=== PATIENT | female | born 1945 | race Caucasian/White ===

== ENCOUNTER 2016-08-11 13:14 | Emergency (ER) | payer MEDICARE, BC ==
[2016-08-11 13:19] VITALS: BP 103/69; PULSE 70; RESP 15; TEMP 97.7; O2SAT 96
[2016-08-11 14:09] LABS: BASOPHIL % 0.2 % (0.0-2.0); EOSINOPHIL % 0.1 % (0.0-4.0); HEMATOCRIT 43.4 % (35.0-46.0); HEMO FLAGS DIFF FINAL; LYMPH % 16.9 % (9.0-44.0); LYMPHOCYTE # 1.3 TH/MM3 (1.0-4.8); MEAN CELL VOLUME 91.4 FL (80.0-100.0); MEAN CORPUSCULAR HEMOGLOBIN 29.5 PG (27.0-34.0); MEAN CORPUSCULAR HGB CONC 32.3 % (32.0-36.0); NEUT % 78.8 % (16.0-70.0); PLATELET COUNT 151 TH/MM3 (150-450); RED BLOOD COUNT 4.75 MIL/MM3 (4.00-5.30); RED CELL DISTRIBUTION WIDTH 12.7 % (11.6-17.2); WHITE BLOOD COUNT 7.6 TH/MM3 (4.0-11.0)
[2016-08-11 14:23] VITALS: BP 139/78; PULSE 72; RESP 18; O2SAT 99
[2016-08-11 14:28] LABS: ALKALINE PHOSPHATASE 94 U/L (45-117); ALT (GPT) 18 U/L (10-53); ANION GAP 9 MEQ/L (5-15); AST (GOT) 20 U/L (15-37); BICARBONATE 22.8 MEQ/L (21.0-32.0); BLOOD UREA NITROGEN 11 MG/DL (7-18); CHLORIDE 112 MEQ/L (98-107); GLOMERULAR FILTRATION RATE 71 ML/MIN (>89); POTASSIUM 4.1 MEQ/L (3.5-5.1); SODIUM (NA) 144 MEQ/L (136-145); TOTAL BILIRUBIN ADULT 0.3 MG/DL (0.2-1.0)
--- NOTE | 2016-08-11 14:56 | PD ---
HPI Chief Complaint: Syncope/Near-Syncope Time Seen by Provider: 14:52 Travel History International Travel<30 days: No Contact w/Intl Traveler<30days: No Traveled to known affect area: No History of Present Illness HPI 70-year-old female that presents to the ED for evaluation of possible syncopal episode. Patient has a chronic history of dementia and lives in an assisted facility and history is limited from the patient. Patient tells me that she doesn't know why she is here or where she sat. Patient keeps telling me that she is from [place] and she lives in [place] and apparently wants us to contact her family member. She denies any pain of any kind. Again history is limited because of the patient's mental status which appears to be chronic. From the detention report apparently patient was being helped to go to the bathroom and she had to be put in a wheelchair because she felt somewhat dizzy, after this they apparently proceeded to put the patient on the toilet to help to go to the bathroom and when they got back the found her on the floor. Patient came back to his and she is back to her baseline per nurse report but they were concerned that she might have a syncopal episode. There is no signs of trauma on the patient. She complains of nothing. Again history is very limited. PFSH Past Medical History Dementia: Yes Social History Alcohol Use: No (denies) Tobacco Use: No (denies) Substance Use: No (denies) Allergies-Medications (Allergen,Severity, Reaction): Coded Allergies: Bactrim (Verified Allergy, Severe, 08/11/16) Penicillin G Benzathine (Verified Allergy, Severe, 08/11/16) Procaine (Verified Allergy, Severe, 08/11/16) Sulfacetamide (Verified Allergy, Severe, 08/11/16) Reported Meds & Prescriptions Reported Meds & Active Scripts Active Macrobid (Nitrofurantoin Monoh/Nitrofur Macro) 100 Mg Cap 100 Mg PO BID 7 Days Review of Systems ROS Limitations: Poor Historian Except as stated in HPI: all other systems reviewed are Neg Physical Exam Exam Limitations: Poor Historian Narrative GENERAL: SKIN: Warm and dry. HEAD: Atraumatic. Normocephalic. EYES: Pupils equal and round 4 mm reactive to light and accommodation. No scleral icterus. No injection or drainage. ENT: No nasal bleeding or discharge. Mucous membranes pink and moist. Tongue is midline. No uvula deviation. NECK: Trachea midline. No JVD. CARDIOVASCULAR: Regular rate and rhythm. RESPIRATORY: No accessory muscle use. Clear to auscultation. Breath sounds equal bilaterally. GASTROINTESTINAL: Abdomen soft, non-tender, nondistended. Hepatic and splenic margins not palpable. MUSCULOSKELETAL: Extremities without clubbing, cyanosis, or edema. No obvious deformities. Full range of motion of the upper and lower extremities bilaterally. 2+ pulses bilaterally. No lumbar, thoracic, cervical spine tenderness to palpation. NEUROLOGICAL: Awake and alert. No obvious cranial nerve deficits. Motor grossly within normal limits. Five out of 5 muscle strength in the arms and legs. Normal speech. PSYCHIATRIC: Appropriate mood and affect; insight and judgment normal. Data Data Last Documented VS Vital Signs Date Time Temp Pulse Resp B/P Pulse Ox O2 Delivery O2 Flow Rate FiO2 08/11/16 16:50 58 18 102/73 57 138/67 102/73 08/11/16 15:50 96 Room Air 08/11/16 13:19 97.7 Orders Electrocardiogram (08/11/16 13:56) Complete Blood Count With Diff (08/11/16 13:56) Comprehensive Metabolic Panel (08/11/16 13:56) Iv Access Insert/Monitor (08/11/16 13:56) Ckmb (Isoenzyme) Profile (08/11/16 14:24) Troponin I (08/11/16 14:24) Prothrombin Time / Inr (Pt) (08/11/16 14:24) Act Partial Throm Time (Ptt) (08/11/16 14:24) Urinalysis - C+S If Indicated (08/11/16 14:24) Magnesium (Mg) (08/11/16 14:24) Thyroid Stimulating Hormone (08/11/16 14:24) Chest, Single Ap (08/11/16 14:24) Ct Brain W/O Iv Contrast(Rout) (08/11/16 14:24) ^ Sitter (08/11/16 14:44) Lorazepam Inj (Ativan Inj) (08/11/16 15:00) CKMB (08/11/16 13:57) CKMB% (08/11/16 13:57) Orthostatic Blood Pressure (4/6/17 15:56) Sodium Chlor 0.9% 1000 Ml Inj (Ns 1000 M (08/11/16 16:55) Urine Culture (08/11/16 17:10) Nitrofurantoin Monohyd Macrocr (Macrobid (08/11/16 17:45) Labs Laboratory Tests Test 08/11/16 08/11/16 08/11/16 13:57 15:00 17:10 White Blood Count 7.6 TH/MM3 Red Blood Count 4.75 MIL/MM3 Hemoglobin 14.0 GM/DL Hematocrit 43.4 % Mean Corpuscular Volume 91.4 FL Mean Corpuscular Hemoglobin 29.5 PG Mean Corpuscular Hemoglobin 32.3 % Concent Red Cell Distribution Width 12.7 % Platelet Count 151 TH/MM3 Mean Platelet Volume 9.5 FL Neutrophils (%) (Auto) 78.8 % Lymphocytes (%) (Auto) 16.9 % Monocytes (%) (Auto) 4.0 % Eosinophils (%) (Auto) 0.1 % Basophils (%) (Auto) 0.2 % Neutrophils # (Auto) 6.0 TH/MM3 Lymphocytes # (Auto) 1.3 TH/MM3 Monocytes # (Auto) 0.3 TH/MM3 Eosinophils # (Auto) 0.0 TH/MM3 Basophils # (Auto) 0.0 TH/MM3 CBC Comment DIFF FINAL Differential Comment Sodium Level 144 MEQ/L Potassium Level 4.1 MEQ/L Chloride Level 112 MEQ/L Carbon Dioxide Level 22.8 MEQ/L Anion Gap 9 MEQ/L Blood Urea Nitrogen 11 MG/DL Creatinine 0.80 MG/DL Estimat Glomerular Filtration 71 ML/MIN Rate Random Glucose 91 MG/DL Calcium Level 8.2 MG/DL Magnesium Level 2.2 MG/DL Total Bilirubin 0.3 MG/DL Aspartate Amino Transf 20 U/L (AST/SGOT) Alanine Aminotransferase 18 U/L (ALT/SGPT) Alkaline Phosphatase 94 U/L Total Creatine Kinase 122 U/L Creatine Kinase MB 1.0 NG/ML Troponin I LESS THAN 0.02 NG/ML Total Protein 6.2 GM/DL Albumin 3.4 GM/DL Thyroid Stimulating Hormone 3.080 uIU/ML 3rd Gen Prothrombin Time 10.9 SEC Prothromb Time International 1.0 RATIO Ratio Activated Partial 20.3 SEC Thromboplast Time Urine Color YELLOW Urine Turbidity HAZY Urine pH 6.0 Urine Specific [place] 1.014 Urine Protein NEG mg/dL Urine Glucose (UA) NEG mg/dL Urine Ketones NEG mg/dL Urine Occult Blood NEG Urine Nitrite POS Urine Bilirubin NEG Urine Urobilinogen LESS THAN 2.0 MG/DL Urine Leukocyte Esterase LARGE Urine RBC 2 /hpf Urine WBC 79 /hpf Urine Squamous Epithelial <1 /hpf Cells Urine Bacteria MANY /hpf Urine Mucus FEW /lpf Microscopic Urinalysis Comment CULTURE INDICATED MDM Medical Decision Making Medical Screen Exam Complete: Yes Emergency Medical Condition: Yes Medical Record Reviewed: Yes Interpretation(s) EKG shows sinus rhythm with no sign of acute ischemia or arrhythmia ruled out by me and attending. CBC & BMP Diagram 08/11/16 13:57 LFTs within normal limits. UA shows UTI Last Impressions Head CT 08/11/16 142 Signed Impressions: Service Date/Time: August 15:07 - CONCLUSION: 1. No acute intracranial abnormality is identified. Johnny Torres MD Chest X-Ray 08/11/[id number] Signed Impressions: Service Date/Time: August 14:30 - CONCLUSION: The lungs are clear. Palomo Mars MD Differential Diagnosis Syncope versus altered mental status versus UTI versus vasovagal syncope versus head injury Narrative Course 70-year-old female that presents to the ED for evaluation of syncope. Patient was properly examined and was found to have signs and symptoms consistent with appears to be syncope. Patient is demented so her history is limited and she does appear to be slightly altered but from nurse report this is her baseline. At this time we'll recommend labs and imaging to any sign of acute disease. Labs and imaging showed no sign of acute disease or 10 UTI. Patient did had some dropping orthostatic vitals. This was discussed in my attending Dr. Mcnair who evaluated the patient and review all lab findings and agrees the patient can be discharged back to detention. Patient will be discharged with prescription for Macrobid. Patient was given 1 dose of Macrobid here. Patient was sent back to her detention. Follow with PCP. See ED for worsening symptoms. Diagnosis Primary Impression: Syncope Qualified Code: R55 - Vasovagal syncope Additional Impression: UTI (urinary tract infection) Qualified Code: N30.00 - Acute cystitis without hematuria Patient Instructions: General Instructions Additional Instructions: Take medication as prescribed. Follow with PCP. See ED for any worsening symptoms. Med/Other Pt SpecificInfo: Prescription(s) given Scripts Nitrofurantoin Monohydrate Macrocrystals (Macrobid)100 Mg [id number] Mg PO BID 7 Days Ref 0 Prov:Niranjan Mcnair MD 08/11/16 Disposition: 03 DISCHARGE TO SNF Condition: Stable Flako Estrada Aug 11, 2016 14:56 Flako Estrada Aug 11, 2016 14:56
[2016-08-11] MEDS ORDERED: LORazepam 2 MG/ML VIAL IV PUSH ONE (15:00)
--- NOTE | 2016-08-11 15:16 | RADRPT ---
EXAM DATE/TIME: 08/11/2016 14:30 [facility] COMPARISON: No previous studies available for comparison. INDICATIONS : Syncope. MEDICAL HISTORY : Unobtainable. SURGICAL HISTORY : Unobtainable. ENCOUNTER: Initial ACUITY: 1 day PAIN SCORE: 0/10 LOCATION: Bilateral chest FINDINGS: A single view of the chest demonstrates the lungs to be symmetrically aerated without evidence of mas s, infiltrate or effusion. No evidence of pneumothorax. The cardiomediastinal contours are unremark able. Osseous structures are intact. CONCLUSION: The lungs are clear. Palomo Mars MD on August 11, 2016 at 15:14 Board Certified Radiologist. This report was verified electronically.
[2016-08-11 15:47] LABS: CREATINE KINASE 122 U/L (26-192)
[2016-08-11 15:50] VITALS: BP 130/60; PULSE 63; RESP 18; O2SAT 96
[2016-08-11 15:55] LABS: MAGNESIUM 2.2 MG/DL (1.5-2.5)
[2016-08-11 16:06] LABS: PROTHROMBIN TIME - PATIENT 10.9 SEC (9.8-11.6)
--- NOTE | 2016-08-11 16:06 | RADRPT ---
EXAM DATE/TIME: 08/11/2016 15:07 [facility] COMPARISON: No previous studies available for comparison. INDICATIONS : Syncope with fall RADIATION DOSE: 56.35 CTDIvol (mGy) MEDICAL HISTORY : Dementia. SURGICAL HISTORY : None. ENCOUNTER: Initial ACUITY: 1 day PAIN SCALE: 0/10 LOCATION: cranial TECHNIQUE: Multiple contiguous axial images were obtained of the head. Using automated exposure control and adj ustment of the mA and/or kV according to patient size, radiation dose was kept as low as reasonably a chievable to obtain optimal diagnostic quality images. FINDINGS: CEREBRUM: The ventricles are normal for age. No evidence of midline shift, mass lesion, hemorrhage or acute in farction. No extra-axial fluid collections are seen. POSTERIOR FOSSA: The cerebellum and brainstem are intact. The 4th ventricle is midline. The cerebellopontine angle i s unremarkable. EXTRACRANIAL: The visualized portion of the orbits is intact. SKULL: The calvaria is intact. No evidence of skull fracture. CONCLUSION: 1. No acute intracranial abnormality is identified. Johnny Torres MD on August 11, 2016 at 16:03 Board Certified Radiologist. This report was verified electronically.
[2016-08-11 16:08] LABS: APTT (PATIENT) 20.3 SEC (24.3-30.1)
[2016-08-11 16:48] VITALS: BP_SYST 102; BP_SYST 138; BP_SYST 144; BP_DIAS 67; BP_DIAS 69; BP_DIAS 73; PULSE 58
[2016-08-11 16:50] VITALS: BP_SYST 102; BP_SYST 138; BP_DIAS 67; BP_DIAS 73; RESP 18
[2016-08-11] MEDS ORDERED: SODIUM CHLOR 0.9% 1000 ML INJ 1,000 ML IV SCH (16:55)
[2016-08-11 17:27] LABS: BACTERIA, URINE MANY /hpf; BLOOD, URINE NEG (NEG); COMMENT (UR) CULTURE INDICATED; CULTURE IF INDICATED CULTURE INDICATED; GLUCOSE,URINE NEG (NEG); KETONE, URINE NEG (NEG); MUCUS URINE FEW /lpf (OCC); SQUAMOUS EPITHELIAL CELL URINE <1 /hpf (0-5); URINE COLOR YELLOW (YELLW/STRAW)
[2016-08-11 17:31] LABS: NITRITE,URINE POS (NEG)
[2016-08-11] MEDS ORDERED: MACR100C2 PO (17:42)
[2016-08-11] MEDS ORDERED: NITROFURANTOIN MONOHYD MACROCR 100 MG CAP PO ONE ×2 (17:45→18:00)
--- NOTE | 2016-08-12 22:08 | EKG ---
Date Performed: 08/11/2016 Time Performed: 14:03:40 PTAGE: 70 years EKG: Sinus rhythm WITH OCCASIONAL SUPRAVENTRICULAR PREMATURE COMPLEXES NONSPECIFIC T-WAVE ABNORMALITY Consider anterol ateral ischemia. BORDERLINE ECG NO PREVIOUS TRACING DOCTOR: Alfredito Bell Interpretating Date/Time 08/12/2016 22:07:41
== END 2016-08-11 18:47 ==
LOC: NEPC 13:14
DX: R55 Syncope and collapse (principal); N30.00 Acute cystitis without hematuria; B96.20 Unspecified Escherichia coli [E. coli] as the cause of diseases classified elsewhere; F03.90 Unspecified dementia, unspecified severity, without behavioral disturbance, psychotic disturbance, mood disturbance, and anxiety; R94.31 Abnormal electrocardiogram [ECG] [EKG]
CPT/HCPCS: 70450; 71010; 80053; 81001; 82550; 82552; 83735; 84443; 84484; 85025; 85610; 85730; 87077; 87086; 87186; 93005; 96360; 99285; J7030

== ENCOUNTER 2016-11-05 19:39 | Emergency (ER) | payer MEDICARE, BC ==
[~2016-11-05 19:39] MED LIST: MACR100C2 PO
[2016-11-05 19:44] VITALS: BP 103/47; PULSE 60; RESP 18; TEMP 97.7; O2SAT 98
[2016-11-05] MEDS ORDERED: SODIUM CHLOR 0.9% 1000 ML INJ 1,000 ML IV ONE (19:48)
[2016-11-05] MEDS ORDERED: LORA-373 PO (19:52)
[2016-11-05] MEDS ORDERED: MEMA28CA PO (19:52)
[2016-11-05] MEDS ORDERED: TIZA4CAP3 PO (19:52)
[2016-11-05] MEDS ORDERED: SERO25TA PO (19:52)
[2016-11-05] MEDS ORDERED: DONE10TA7 PO (19:52)
[2016-11-05] MEDS ORDERED: CLAR10CA3 PO (19:52)
[2016-11-05] MEDS ORDERED: FLUT1SPR5 EACH NARE (19:52)
[2016-11-05] MEDS ORDERED: AZEL137S EACH NARE (19:52)
[2016-11-05] MEDS ORDERED: NITR1SUB3 SL (19:52)
[2016-11-05] MEDS ORDERED: ATOR20TA15 PO (19:52)
[2016-11-05] MEDS ORDERED: TYLE325T PO (19:52)
--- NOTE | 2016-11-05 19:52 | PD ---
HPI Chief Complaint: Fall Time Seen by Provider: 19:48 Travel History International Travel<30 days: No Contact w/Intl Traveler<30days: No Traveled to known affect area: No History of Present Illness HPI The patient is a 70-year-old female that is a resident of [facility] who apparently had a witnessed fall, witnessed by another resident. The patient does not remember the fall and initially thought she was in [place]. The patient has a history of dementia. There is no injury. The patient reportedly had a low blood pressure and slow pulse and this is why she was brought to the emergency department by the ambulance. PFSH Past Medical History Anxiety: Yes Dementia: Yes Social History Alcohol Use: No (denies) Tobacco Use: No (denies) Substance Use: No (denies) Allergies-Medications (Allergen,Severity, Reaction): Coded Allergies: Bactrim (Verified Allergy, Severe, 11/05/16) Penicillin G Benzathine (Verified Allergy, Severe, 11/05/16) Procaine (Verified Allergy, Severe, 11/05/16) Sulfacetamide (Verified Allergy, Severe, 11/05/16) Reported Meds & Prescriptions Reported Meds & Active Scripts Active Reported Tylenol (Acetaminophen) 325 Mg Tab 650 Mg PO Q4H PRN Nitroglycerin SL (Nitroglycerin) 0.4 Mg Subl 0.4 Mg SL DIRECTED PRN ONE TABLET UNDER THE TONGUE NEEDED FOR CHEST PAIN, MAY REPEAT EVERY FIVE MINUTES FOR A TOTAL OF 3 DOSES OR CALL 911 IF NO RELIEF Seroquel (Quetiapine Fumarate) 25 Mg Tab 25 Mg PO BID Lorazepam 0.5 Mg Tab 0.5 Mg PO Q8H PRN Dymista Nasal Gary (Azelastine-Fluticasone Nasal Gary) 137-50 Mcg Gary 1 Gary EACH NARE BID To each nostril. Namenda Xr (Memantine) 28 Mg Caper 28 Mg PO DAILY Tizanidine (Tizanidine HCl) 4 Mg Cap 4 Mg PO HS PRN Atorvastatin (Atorvastatin Calcium) 20 Mg Tab 20 Mg PO HS Donepezil 10 Mg Tab 10 Mg PO HS Flonase Nasal Gary (Fluticasone Nasal Gary) 50 Mcg/Act Gary 50 Mcg EACH NARE BID Claritin (Loratadine) 10 Mg Cap 10 Mg PO DAILY Review of Systems ROS Limitations: Poor Historian Except as stated in HPI: all other systems reviewed are Neg Physical Exam Narrative GENERAL: The patient is alert but disoriented to situation and location and time. Her vital signs show blood pressure 103/47 with a pulse rate of 60 and temperature 97.7, respiratory rate 18 and oximetry 98%. She has good color but does appear moderately dehydrated. SKIN: Focused skin assessment warm/dry. HEAD: Atraumatic. Normocephalic. EYES: Pupils equal and round. No scleral icterus. No injection or drainage. ENT: No nasal bleeding or discharge. Mucous membranes pink but dry. NECK: Trachea midline. No JVD. CARDIOVASCULAR: Regular rate and rhythm. No murmur appreciated. RESPIRATORY: No accessory muscle use. Clear to auscultation. Breath sounds equal bilaterally. GASTROINTESTINAL: Abdomen soft, non-tender, nondistended. Hepatic and splenic margins not palpable. MUSCULOSKELETAL: No obvious deformities. No clubbing. No cyanosis. No edema. NEUROLOGICAL: Awake and alert. No obvious cranial nerve deficits. Motor grossly within normal limits. Normal speech. PSYCHIATRIC: Appropriate mood and affect; insight and judgment normal. Data Data Last Documented VS Vital Signs Date Time Temp Pulse Resp B/P Pulse Ox O2 Delivery O2 Flow Rate FiO2 11/05/16 20:45 63 20 114/56 99 Room Air 11/05/16 19:44 97.7 Orders Electrocardiogram (11/05/16 19:48) Complete Blood Count With Diff (11/05/16 19:48) Comprehensive Metabolic Panel (11/05/16 19:48) Troponin I (11/05/16 19:48) Urinalysis - C+S If Indicated (11/05/16 19:48) Ecg Monitoring (11/05/16 19:48) Iv Access Insert/Monitor (11/05/16 19:48) Oximetry (11/05/16 19:48) Sodium Chloride 0.9% Flush (Ns Flush) (11/05/16 20:00) Sodium Chlor 0.9% 1000 Ml Inj (Ns 1000 M (11/05/16 19:48) Orthostatic Vital Signs (11/05/16 19:48) Labs Laboratory Tests Test 11/05/16 11/05/16 20:15 20:30 White Blood Count 6.0 TH/MM3 Red Blood Count 4.22 MIL/MM3 Hemoglobin 12.2 GM/DL Hematocrit 37.5 % Mean Corpuscular Volume 88.8 FL Mean Corpuscular Hemoglobin 28.8 PG Mean Corpuscular Hemoglobin 32.4 % Concent Red Cell Distribution Width 12.0 % Platelet Count 217 TH/MM3 Mean Platelet Volume 9.3 FL Neutrophils (%) (Auto) 70.4 % Lymphocytes (%) (Auto) 22.6 % Monocytes (%) (Auto) 5.2 % Eosinophils (%) (Auto) 1.0 % Basophils (%) (Auto) 0.8 % Neutrophils # (Auto) 4.3 TH/MM3 Lymphocytes # (Auto) 1.3 TH/MM3 Monocytes # (Auto) 0.3 TH/MM3 Eosinophils # (Auto) 0.1 TH/MM3 Basophils # (Auto) 0.0 TH/MM3 CBC Comment DIFF FINAL Differential Comment Sodium Level 145 MEQ/L Potassium Level 3.8 MEQ/L Chloride Level 109 MEQ/L Carbon Dioxide Level 28.8 MEQ/L Anion Gap 7 MEQ/L Blood Urea Nitrogen 9 MG/DL Random Glucose 103 MG/DL Calcium Level 8.3 MG/DL Albumin 3.1 GM/DL Urine Color YELLOW Urine Turbidity CLEAR Urine pH 7.0 Urine Specific [place] 1.010 Urine Protein NEG mg/dL Urine Glucose (UA) NEG mg/dL Urine Ketones NEG mg/dL Urine Occult Blood NEG Urine Nitrite NEG Urine Bilirubin NEG Urine Leukocyte Esterase NEG Urine WBC 0-2 /hpf Urine Squamous Epithelial 0-5 /hpf Cells Urine Renal Epithelial Cells 0-5 /hpf Urine Hyaline Casts 0-2 /lpf Microscopic Urinalysis Comment CULT NOT INDICATED MDM Medical Decision Making Medical Screen Exam Complete: Yes Emergency Medical Condition: Yes Medical Record Reviewed: Yes Interpretation(s) After a liter of fluid was given the orthostatic vital signs are normal. The CBC is normal. The urinalysis is normal. The complete metabolic profile is essentially normal. The EKG shows a ventricular rate of [address] elevation or depression. Differential Diagnosis Postural hypotension, dehydration, anemia, electrolyte disorder, renal insufficiency, cardiac syncopeunlikely Narrative Course The patient appears to have mild dehydration which led to some postural hypotension. She was given a liter fluid and is drinking by mouth liquids now. Diagnosis Primary Impression: Dehydration, mild Additional Instructions: Try to drink more liquids. It is apparent that she came in somewhat dehydrated and this led to your low blood pressure. Med/Other Pt SpecificInfo: No Change to Meds Disposition: 03 DISCHARGE TO SNF Condition: Stable Wes Hoover MD Nov 05, 2016 19:52
[2016-11-05] MEDS ORDERED: SODIUM CHLORIDE 0.9% FLUSH 10 ML FLUSH IVF PRN (20:00)
[2016-11-05 20:31] LABS: AUTOMATED NEUTROPHIL # 4.3 TH/MM3 (1.8-7.7); BASOPHIL % 0.8 % (0.0-2.0); EOSINOPHIL # 0.1 TH/MM3 (0-0.4); HEMATOCRIT 37.5 % (35.0-46.0); HEMO FLAGS DIFF FINAL; LYMPH % 22.6 % (9.0-44.0); LYMPHOCYTE # 1.3 TH/MM3 (1.0-4.8); MEAN CELL VOLUME 88.8 FL (80.0-100.0); MEAN CORPUSCULAR HEMOGLOBIN 28.8 PG (27.0-34.0); MEAN CORPUSCULAR HGB CONC 32.4 % (32.0-36.0); MONO % 5.2 % (0.0-8.0); NEUT % 70.4 % (16.0-70.0); PLATELET COUNT 217 TH/MM3 (150-450); RED BLOOD COUNT 4.22 MIL/MM3 (4.00-5.30)
[2016-11-05 20:35] VITALS: BP_SYST 106; BP_SYST 114; BP_DIAS 50; BP_DIAS 51; BP_DIAS 56; RESP 18; RESP 20
[2016-11-05 20:37] LABS: BLOOD, URINE NEG (NEG); GLUCOSE,URINE NEG (NEG); KETONE, URINE NEG (NEG); NITRITE,URINE NEG (NEG)
[2016-11-05 20:42] LABS: HYALINE CAST, URINE 0-2 /lpf (RARE); URINE COLOR YELLOW (YELLW/STRAW)
[2016-11-05 20:43] LABS: COMMENT (UR) CULT NOT INDICATED; CULTURE IF INDICATED CULT NOT INDICATED; RENAL EPITHELIAL CELLS 0-5 /hpf; SQUAMOUS EPITHELIAL CELL URINE 0-5 /hpf (0-5); WBC, URINE 0-2 /hpf (0-5)
[2016-11-05 20:45] VITALS: BP 114/56; PULSE 63; RESP 20; O2SAT 99
[2016-11-05 21:02] LABS: CHLORIDE 109 MEQ/L (98-107); POTASSIUM 3.8 MEQ/L (3.5-5.1); SODIUM (NA) 145 MEQ/L (136-145)
[2016-11-05 21:06] LABS: ANION GAP 7 MEQ/L (5-15); BICARBONATE 28.8 MEQ/L (21.0-32.0); BLOOD UREA NITROGEN 9 MG/DL (7-18)
[2016-11-05 21:09] LABS: ALT (GPT) 19 U/L (10-53); AST (GOT) 19 U/L (15-37); GLOMERULAR FILTRATION RATE 55 ML/MIN (>89)
[2016-11-05 21:10] LABS: TOTAL BILIRUBIN ADULT 0.4 MG/DL (0.2-1.0)
[2016-11-05 21:12] LABS: ALKALINE PHOSPHATASE 94 U/L (45-117)
[2016-11-06 00:10] VITALS: BP 118/68
--- NOTE | 2016-11-06 13:31 | EKG ---
Date Performed: 11/05/2016 Time Performed: 20:01:07 PTAGE: 70 years EKG: Sinus rhythm MODERATE T-WAVE ABNORMALITY, CONSIDER ANTEROLATERAL ISCHEMIA ABNORMAL ECG PREVIOUS TRACING : 08/11/2016 14.03 Compared to prior tracing no significant change DOCTOR: Imelda Prakash Interpretating Date/Time 11/06/2016 13:24:29
== END 2016-11-06 00:38 ==
LOC: PHED 19:39
DX: E86.0 Dehydration (principal); R94.31 Abnormal electrocardiogram [ECG] [EKG]; W18.30XA Fall on same level, unspecified, initial encounter; Y93.9 Activity, unspecified; Y92.129 Unspecified place in nursing home as the place of occurrence of the external cause; Y99.9 Unspecified external cause status
CPT/HCPCS: 80053; 81001; 84484; 85025; 93005; 99284; J7030

== ENCOUNTER 2016-12-04 10:49 | Emergency (ER) | payer MEDICARE, BC ==
[~2016-12-04] VITALS: Ht 170.2 cm; Wt 81.0 kg
[~2016-12-04 10:49] MED LIST changes: +ATOR20TA15 PO; +AZEL137S EACH NARE; +CLAR10CA3 PO; +DONE10TA7 PO; +FLUT1SPR5 EACH NARE; +LORA-373 PO; -MACR100C2 PO; +MEMA28CA PO; +NITR1SUB3 SL; +SERO25TA PO; +TIZA4CAP3 PO; +TYLE325T PO
[2016-12-04 11:02] VITALS: BP 119/59; PULSE 51; RESP 17; TEMP 97.7; O2SAT 100
[2016-12-04] MEDS ORDERED: SODIUM CHLOR 0.9% 1000 ML INJ 1,000 ML IV SCH (11:41)
[2016-12-04 11:42] VITALS: RESP 17; O2SAT 99
--- NOTE | 2016-12-04 11:46 | PD ---
HPI Chief Complaint: Syncope/Near-Syncope Time Seen by Provider: 11:30 Travel History International Travel<30 days: No Contact w/Intl Traveler<30days: No Traveled to known affect area: No History of Present Illness HPI This is a 71-year-old female with history of dementia who presents from [place] for evaluation of syncope. Her [id number] provides much of the history. The patient was reportedly taking a shower this morning and upon exiting the shower she was complaining of some lightheadedness and the sensation of feeling "hot." The nursing faculty had her sit on the toilet and she had a brief syncopal episode. She was witnessed and there was no seizure activity. She did not fall off of the toilet. She is currently complaining of some generalized fatigue and a sensation of "not feeling well." According to her [id number] she has had decreased appetite and increased fatigue for the past 3 weeks. She has been complaining of dysuria for the past week and a few days ago she was diagnosed with UTI. She was started on Macrobid yesterday. The patient does endorse dysuria when asked. During examination she is exhibiting generalized mild abdominal pain. She denies any headache, focal weakness, numbness or tingling in the extremities or face, chest pain or shortness of breath, lightheadedness or dizziness, vertigo sensation, cough or congestion, fevers, chills, flank pain. Denies diarrhea. Denies nausea or vomiting. She has no other complaints. PFSH Past Medical History Anxiety: Yes Cardiovascular Problems: Yes High Cholesterol: Yes Dementia: Yes Diminished Hearing: No Neurologic: Yes Respiratory: Yes (RHINITIS/CHRONIC FATIGUE) Tetanus Vaccination: > 5 Years Influenza Vaccination: Yes ?: Not Past Surgical History Surgical History: No Previous Surgery Social History Alcohol Use: No (denies) Tobacco Use: No (denies) Substance Use: No (denies) Allergies-Medications (Allergen,Severity, Reaction): Coded Allergies: Bactrim (Verified Allergy, Severe, HIVES, 12/04/16) Penicillin G Benzathine (Verified Allergy, Severe, RASH, 12/04/16) Procaine (Verified Allergy, Severe, RASH, 12/04/16) Sulfacetamide (Verified Allergy, Severe, ITCHING, 12/04/16) Reported Meds & Prescriptions Reported Meds & Active Scripts Active Reported Tylenol (Acetaminophen) 325 Mg Tab 650 Mg PO Q4H PRN Nitroglycerin SL (Nitroglycerin) 0.4 Mg Subl 0.4 Mg SL DIRECTED PRN ONE TABLET UNDER THE TONGUE NEEDED FOR CHEST PAIN, MAY REPEAT EVERY FIVE MINUTES FOR A TOTAL OF 3 DOSES OR CALL 911 IF NO RELIEF Seroquel (Quetiapine Fumarate) 25 Mg Tab 25 Mg PO BID Lorazepam 0.5 Mg Tab 0.5 Mg PO Q8H PRN Dymista Nasal [place] (Azelastine-Fluticasone Nasal [place]) 137-50 Mcg [place] 1 [place] EACH NARE BID To each nostril. Namenda Xr (Memantine) 28 Mg Caper 28 Mg PO DAILY Tizanidine (Tizanidine HCl) 4 Mg Cap 4 Mg PO HS PRN Atorvastatin (Atorvastatin Calcium) 20 Mg Tab 20 Mg PO HS Donepezil 10 Mg Tab 10 Mg PO HS Flonase Nasal [place] (Fluticasone Nasal [place]) 50 Mcg/Act [place] 50 Mcg EACH NARE BID Claritin (Loratadine) 10 Mg Cap 10 Mg PO DAILY Review of Systems ROS Limitations: Poor Historian Except as stated in HPI: all other systems reviewed are Neg Physical Exam Exam Limitations: Poor Historian Narrative GENERAL: Pleasant well-developed well-nourished female in no acute distress resting complaint hospital bed SKIN: Warm and dry. HEAD: Atraumatic. Normocephalic. EYES: Pupils equal and round. No scleral icterus. No injection or drainage. ENT: No nasal bleeding or discharge. Mucous membranes pink and moist. NECK: Trachea midline. No JVD. CARDIOVASCULAR: Regular rate and rhythm. No murmur appreciated. RESPIRATORY: No accessory muscle use. Clear to auscultation. Breath sounds equal bilaterally. GASTROINTESTINAL: Abdomen soft, mild generalized tenderness to palpation without guarding. MUSCULOSKELETAL: No obvious deformities. No clubbing. No cyanosis. No edema. NEUROLOGICAL: Awake and alert. No obvious cranial nerve deficits. Motor grossly within normal limits. Normal speech. PSYCHIATRIC: Appropriate mood and affect; insight and judgment normal. Data Data Last Documented VS Vital Signs Date Time Temp Pulse Resp B/P Pulse Ox O2 Delivery O2 Flow Rate FiO2 12/04/16 12:52 97.7 57 16 102/61 100 Room Air Orders Electrocardiogram (12/04/16 ) Electrocardiogram (12/04/16 11:41) Complete Blood Count With Diff (12/04/16 11:41) Comprehensive Metabolic Panel (12/04/16 11:41) Magnesium (Mg) (12/04/16 11:41) Ckmb (Isoenzyme) Profile (12/04/16 11:41) Troponin I (12/04/16 11:41) Urinalysis - C+S If Indicated (12/04/16 11:41) Ct Brain W/O Iv Contrast(Rout) (12/04/16 11:41) Ecg Monitoring (12/04/16 11:41) Iv Access Insert/Monitor (12/04/16 11:41) Oximetry (12/04/16 11:41) Sodium Chloride 0.9% Flush (Ns Flush) (12/04/16 11:45) Ct Abd/Pel W Iv Contrast(Rout) (12/04/16 11:41) Thyroid Stimulating Hormone (12/04/16 11:41) Sodium Chlor 0.9% 1000 Ml Inj (Ns 1000 M (12/04/16 11:41) Urine Culture (12/04/16 11:40) Iohexol 350 Inj (Omnipaque 350 Inj) (12/04/16 14:10) Ceftriaxone Inj (Rocephin Inj) (12/04/16 14:45) Labs Laboratory Tests Test 12/04/16 11:40 White Blood Count 7.0 TH/MM3 Red Blood Count 4.89 MIL/MM3 Hemoglobin 14.9 GM/DL Hematocrit 44.1 % Mean Corpuscular Volume 90.2 FL Mean Corpuscular Hemoglobin 30.4 PG Mean Corpuscular Hemoglobin 33.7 % Concent Red Cell Distribution Width 12.9 % Platelet Count 232 TH/MM3 Mean Platelet Volume 9.5 FL Neutrophils (%) (Auto) 78.5 % Lymphocytes (%) (Auto) 17.0 % Monocytes (%) (Auto) 3.9 % Eosinophils (%) (Auto) 0.4 % Basophils (%) (Auto) 0.2 % Neutrophils # (Auto) 5.5 TH/MM3 Lymphocytes # (Auto) 1.2 TH/MM3 Monocytes # (Auto) 0.3 TH/MM3 Eosinophils # (Auto) 0.0 TH/MM3 Basophils # (Auto) 0.0 TH/MM3 CBC Comment DIFF FINAL Differential Comment Urine Color DARK-YELLOW Urine Turbidity HAZY Urine pH 6.5 Urine Specific [place] 1.019 Urine Protein 30 mg/dL Urine Glucose (UA) NEG mg/dL Urine Ketones NEG mg/dL Urine Occult Blood NEG Urine Nitrite NEG Urine Bilirubin NEG Urine Urobilinogen LESS THAN 2.0 MG/DL Urine Leukocyte Esterase MOD Urine RBC 2 /hpf Urine WBC 47 /hpf Urine WBC Clumps OCC Urine Bacteria OCC /hpf Urine Hyaline Casts 13 /lpf Urine Granular Casts 3 /lpf Urine Mucus MANY /lpf Microscopic Urinalysis Comment CATH-CULTURE IND Sodium Level 139 MEQ/L Potassium Level 4.0 MEQ/L Chloride Level 106 MEQ/L Carbon Dioxide Level 25.5 MEQ/L Anion Gap 8 MEQ/L Blood Urea Nitrogen 14 MG/DL Creatinine 0.99 MG/DL Estimat Glomerular Filtration 55 ML/MIN Rate Random Glucose 116 MG/DL Calcium Level 9.4 MG/DL Magnesium Level 2.5 MG/DL Total Bilirubin 0.5 MG/DL Aspartate Amino Transf 22 U/L (AST/SGOT) Alanine Aminotransferase 20 U/L (ALT/SGPT) Alkaline Phosphatase 108 U/L Total Creatine Kinase 62 U/L Troponin I LESS THAN 0.02 NG/ML Total Protein 6.7 GM/DL Albumin 3.5 GM/DL Thyroid Stimulating Hormone 4.670 uIU/ML 3rd Gen [facility] Medical Decision Making Medical Screen Exam Complete: Yes Emergency Medical Condition: Yes Medical Record Reviewed: Yes Interpretation(s) EKG reveals sinus bradycardia, rate 51, no evidence of heart block. There are T -wave inversions noted in the anterior and lateral leads. This is unchanged from previous EKGs. Differential Diagnosis UTI, dehydration, electrolyte abnormality, sepsis, arrhythmia, symptomatic anemia Narrative Course 71-year-old female presents [facility] She was started on neck yesterday for UTI. She has been feeling fatigued for the past 3 weeks. On initial examination she appears well. She does have generalized mild tenderness to palpation of the abdomen. Physical examination is otherwise unremarkable. Plan is for basic lab work, EKG, ECG monitoring and pulse oximetry. The patient's lab work and imaging studies been reviewed. EKG reveals borderline bradycardia with no evidence of heart block. Her CBC is normal. Her CMP is unremarkable. Cardiac enzymes are negative. Her TSH is mildly elevated at 4.670, no history of hypothyroidism but this could be contributing to her fatigue. This will be discussed with the family members for further workup on an outpatient basis. Her urinalysis reveals 47 wbc's and wbc clumps, culture has been sent and the patient will be given a dose of Rocephin here. Plan is for CT the brain and abdomen reveal no acute abnormalities. The patient has been stable during her hospital stay. The plan at this time would be to discharge the patient to continue taking Macrobid as prescribed, follow up with primary care physician in regards to the elevated TSH. Diagnosis Primary Impression: UTI (urinary tract infection) Qualified Code: N30.00 - Acute cystitis without hematuria Additional Impressions: Elevated TSH Syncope Qualified Code: R55 - Syncope, unspecified syncope type Additional Instructions: As discussed, urinalysis is consistent with urinary tract infection. Take the Macrobid as prescribed. Your TSH level was 4.67 which could be a sign of hypothyroidism. Discussed with your primary care physician. Return for any acutely new or worsening symptoms. Med/Other Pt SpecificInfo: No Change to Meds Disposition: 01 DISCHARGE HOME Condition: Stable Levi Kunz Dec 04, 2016 11:46
[2016-12-04] MEDS: SODIUM CHLORIDE 0.9% FLUSH 10 ML FLUSH IVF PRN ×2 (11:51→12:49)
[2016-12-04 12:01] LABS: AUTOMATED NEUTROPHIL # 5.5 TH/MM3 (1.8-7.7); BASOPHIL % 0.2 % (0.0-2.0); EOSINOPHIL % 0.4 % (0.0-4.0); HEMATOCRIT 44.1 % (35.0-46.0); HEMO FLAGS DIFF FINAL; LYMPHOCYTE # 1.2 TH/MM3 (1.0-4.8); MEAN CELL VOLUME 90.2 FL (80.0-100.0); MEAN CORPUSCULAR HEMOGLOBIN 30.4 PG (27.0-34.0); MEAN CORPUSCULAR HGB CONC 33.7 % (32.0-36.0); MONO % 3.9 % (0.0-8.0); NEUT % 78.5 % (16.0-70.0); PLATELET COUNT 232 TH/MM3 (150-450); RED BLOOD COUNT 4.89 MIL/MM3 (4.00-5.30); RED CELL DISTRIBUTION WIDTH 12.9 % (11.6-17.2)
[2016-12-04 12:07] LABS: BACTERIA, URINE OCC /hpf; BLOOD, URINE NEG (NEG); GLUCOSE,URINE NEG (NEG); GRANULAR CAST, URINE 3 /lpf; HYALINE CAST, URINE 13 /lpf (RARE); KETONE, URINE NEG (NEG); MUCUS URINE MANY /lpf (OCC); NITRITE,URINE NEG (NEG); PH, URINE 6.5 (5.0-8.5); URINE COLOR DARK-YELLOW (YELLW/STRAW)
[2016-12-04 12:08] LABS: COMMENT (UR) CATH-CULTURE IND; CULTURE IF INDICATED CATH CULTURE IND
[2016-12-04 12:36] LABS: ANION GAP 8 MEQ/L (5-15); AST (GOT) 22 U/L (15-37); BICARBONATE 25.5 MEQ/L (21.0-32.0); BLOOD UREA NITROGEN 14 MG/DL (7-18); CHLORIDE 106 MEQ/L (98-107); GLOMERULAR FILTRATION RATE 55 ML/MIN (>89); MAGNESIUM 2.5 MG/DL (1.5-2.5); SODIUM (NA) 139 MEQ/L (136-145)
[2016-12-04 12:37] LABS: ALT (GPT) 20 U/L (10-53)
[2016-12-04 12:47] LABS: ALKALINE PHOSPHATASE 108 U/L (45-117); TOTAL BILIRUBIN ADULT 0.5 MG/DL (0.2-1.0)
[2016-12-04 12:52] VITALS: BP 102/61; PULSE 57; RESP 16; TEMP 97.7; O2SAT 100
[2016-12-04 12:55] LABS: CREATINE KINASE 62 U/L (26-192)
[2016-12-04] MEDS ORDERED: IOHEXOL 350 MG/ML 10 ML VIAL (for RAD DIAG) IV ONE (14:10)
--- NOTE | 2016-12-04 14:11 | RADRPT ---
EXAM DATE/TIME: 12/04/2016 13:45 [facility] COMPARISON: CT BRAIN W/O CONTRAST, August 11, 2016, 15:07. INDICATIONS : Syncope, confusion. RADIATION DOSE: 43.18 CTDIvol (mGy) ; Tabletop CT Head MEDICAL HISTORY : Dementia. Cardiovascular disease SURGICAL HISTORY : None. ENCOUNTER: Initial ACUITY: 1 day PAIN SCALE: 0/10 LOCATION: cranial TECHNIQUE: Multiple contiguous axial images were obtained of the head. Using automated exposure control and adj ustment of the mA and/or kV according to patient size, radiation dose was kept as low as reasonably a chievable to obtain optimal diagnostic quality images. DICOM format image data is available electro nically for review and comparison. FINDINGS: CEREBRUM: Mild central cerebral atrophy is noted. No evidence of midline shift, mass lesion, hemorrhage or acut e infarction. No extra-axial fluid collections are seen. There is an old lacunar infarct within the left barrientos radiata. POSTERIOR FOSSA: The cerebellum and brainstem are intact. The 4th ventricle is midline. The cerebellopontine angle i s unremarkable. EXTRACRANIAL: The visualized portion of the orbits is intact. SKULL: The calvaria is intact. No evidence of skull fracture. CONCLUSION: 1. Mild central cerebral atrophy. 2. Old lacunar infarct within the left barrientos radiata. 3. No acute infarct, acute hemorrhage, mass effect or extra axial fluid collections. Yuri Samuel MD on December 04, 2016 at 14:08 Board Certified Radiologist. This report was verified electronically.
--- NOTE | 2016-12-04 14:25 | RADRPT ---
EXAM DATE/TIME: 12/04/2016 13:50 [facility] COMPARISON: No previous studies available for comparison. INDICATIONS : UTI. IV CONTRAST: 75 cc Omnipaque 350 (iohexol) IV ORAL CONTRAST: No oral contrast ingested. RADIATION DOSE: 5.40 CTDIvol (mGy) MEDICAL HISTORY : Dementia. Cardiovascular disease SURGICAL HISTORY : None. ENCOUNTER: Initial ACUITY: 1 day PAIN SCALE: 0/10 LOCATION: abdomen TECHNIQUE: Volumetric scanning of the abdomen and pelvis was performed. Using automated exposure control and ad justment of the mA and/or kV according to patient size, radiation dose was kept as low as reasonably achievable to obtain optimal diagnostic quality images. DICOM format image data is available electro nically for review and comparison. FINDINGS: LOWER LUNGS: Focal interstitial changes are noted within the right middle lobe consistent with minimal infiltrate or scarring. LIVER: Homogeneous density without lesion. There is no dilation of the biliary tree. No calcified gallston es. Status post cholecystectomy. SPLEEN: Normal size without lesion. PANCREAS: Within normal limits. KIDNEYS: Normal in size and shape. There is no solid mass, stone or hydronephrosis. There is a 1 cm upper wes e left renal cyst. ADRENAL GLANDS: There is a 1.5 x 1.1 cm left adrenal nodule consistent probable adrenal adenoma. The right adrenal gl and is unremarkable. VASCULAR: There is no aortic aneurysm. BOWEL/MESENTERY: Uncomplicated sigmoid diverticulosis is noted. No acute diverticulitis is noted. ABDOMINAL WALL: Within normal limits. RETROPERITONEUM: There is no lymphadenopathy. BLADDER: No wall thickening or mass. REPRODUCTIVE: Within normal limits. INGUINAL: There is no lymphadenopathy or hernia. MUSCULOSKELETAL: Mild degenerative changes are noted throughout the lumbar spine. CONCLUSION: 1. 1.5 x 1.1 cm left adrenal nodule consistent with probable adrenal adenoma. 2. Uncomplicated sigmoid diverticulosis. 3. 1.0 cm left upper pole renal cyst. 4. Minimal focal interstitial changes within the right middle lobe consistent with scarring and/or in filtrate. 5. Mild degenerative changes throughout the lumbar spine. Yuri Samuel MD on December 04, 2016 at 14:16 Board Certified Radiologist. This report was verified electronically.
[2016-12-04] MEDS ORDERED: cefTRIAXone INJ 1,000 MG in SODIUM CHLORIDE 0.9% INJ 100 ML IV ONE (14:45)
[2016-12-04 15:49] VITALS: BP 138/76; TEMP 97.8
--- NOTE | 2016-12-04 16:27 | EKG ---
Date Performed: 12/04/2016 Time Performed: 11:16:04 PTAGE: 71 years EKG: SINUS BRADYCARDIA NONSPECIFIC T-WAVE CHANGES ANTEROLATERALLY Since previous tracing, no sig nificant change noted ABNORMAL ECG PREVIOUS TRACING : 11/05/2016 20.01 DOCTOR: Luciano Hurtado Interpretating Date/Time 12/04/2016 16:25:58
== END 2016-12-04 15:49 | disposition home or self-care (01) ==
LOC: NEPC 10:49
DX: N30.00 Acute cystitis without hematuria (principal); R55 Syncope and collapse; F03.90 Unspecified dementia, unspecified severity, without behavioral disturbance, psychotic disturbance, mood disturbance, and anxiety
CPT/HCPCS: 70450; 74177; 80053; 81001; 82550; 83735; 84443; 84484; 85025; 87086; 93005; 96361; 96365; 99285; J0696; J7030; Q9967

== ENCOUNTER 2016-12-29 17:50 | Emergency (ER) | payer MEDICARE, BC ==
[~2016-12-29] VITALS: Ht 165.1 cm; Wt 60.0 kg
[2016-12-29 18:08] VITALS: BP 164/74; PULSE 80; RESP 18; TEMP 97.7; O2SAT 99
--- NOTE | 2016-12-29 18:20 | PD ---
HPI Chief Complaint: Fall Time Seen by Provider: 18:09 Travel History International Travel<30 days: No Contact w/Intl Traveler<30days: No Traveled to known affect area: No History of Present Illness HPI history limited due to dementia facility stated that patient fell down while going down the last step/of stairs , mechanical fall, no seizure activity no loc per staff. patient c/o "back pain all over"...however pt unable to rate, also unable to state if loc etc in her own words. PFSH Past Medical History Anxiety: Yes Cardiovascular Problems: Yes High Cholesterol: Yes Dementia: Yes Diminished Hearing: No Neurologic: Yes Respiratory: Yes (RHINITIS/CHRONIC FATIGUE) ?: Not Social History Alcohol Use: No (denies) Tobacco Use: No (denies) Substance Use: No (denies) Allergies-Medications (Allergen,Severity, Reaction): Coded Allergies: penicillin G (Unverified Allergy, Severe, RASH, 12/20/16) procaine (Unverified Allergy, Severe, RASH, 12/20/16) sulfacetamide (Unverified Allergy, Severe, ITCHING, 12/20/16) sulfamethoxazole (Unverified Allergy, Severe, HIVES, 12/20/16) trimethoprim (Unverified Allergy, Severe, HIVES, 12/20/16) Reported Meds & Prescriptions Reported Meds & Active Scripts Active Reported Tylenol (Acetaminophen) 325 Mg Tab 650 Mg PO Q4H PRN Nitroglycerin SL (Nitroglycerin) 0.4 Mg Subl 0.4 Mg SL DIRECTED PRN ONE TABLET UNDER THE TONGUE NEEDED FOR CHEST PAIN, MAY REPEAT EVERY FIVE MINUTES FOR A TOTAL OF 3 DOSES OR CALL 911 IF NO RELIEF Seroquel (Quetiapine Fumarate) 25 Mg Tab 25 Mg PO BID Lorazepam 0.5 Mg Tab 0.5 Mg PO Q8H PRN Dymista Nasal [place] (Azelastine-Fluticasone Nasal [place]) 137-50 Mcg [place] 1 [place] EACH NARE BID To each nostril. Namenda Xr (Memantine) 28 Mg Caper 28 Mg PO DAILY Tizanidine (Tizanidine HCl) 4 Mg Cap 4 Mg PO HS PRN Atorvastatin (Atorvastatin Calcium) 20 Mg Tab 20 Mg PO HS Donepezil 10 Mg Tab 10 Mg PO HS Flonase Nasal [place] (Fluticasone Nasal [place]) 50 Mcg/Act [place] 50 Mcg EACH NARE BID Claritin (Loratadine) 10 Mg Cap 10 Mg PO DAILY Review of Systems Except as stated in HPI: all other systems reviewed are Neg Musculoskeletal: Positive: Pain Physical Exam Exam Limitations: Other: (dementia hx) Narrative GENERAL: arrived by ambulance in full spine immobilization, cleared off board SKIN: Warm and dry. HEAD: Atraumatic. Normocephalic. EYES: Pupils equal and round. No scleral icterus. No injection or drainage. ENT: No nasal bleeding or discharge. Mucous membranes pink and moist. NECK: Trachea midline. No JVD. CARDIOVASCULAR: Regular rate and rhythm. RESPIRATORY: No accessory muscle use. Clear to auscultation. Breath sounds equal bilaterally. GASTROINTESTINAL: Abdomen soft, non-tender, nondistended. Hepatic and splenic margins not palpable. MUSCULOSKELETAL: Extremities without clubbing, cyanosis, or edema. No obvious deformities. no midline ttp along entire spine, no groaning/wincing or grunting from patient. NEUROLOGICAL: Awake and alert to name only (not to place, time, insight) . No obvious cranial nerve deficits. Motor grossly within normal limits. Five out of 5 muscle strength in the arms and legs. Normal speech. PSYCHIATRIC: Appropriate mood and affect; insight and judgment normal. Data Data Last Documented VS Vital Signs Date Time Temp Pulse Resp B/P (MAP) Pulse Ox O2 Delivery O2 Flow Rate FiO2 12/29/16 19:10 68 18 179/82 (114) 98 Room Air 12/29/16 18:08 97.7 Orders Orders Spine, Cervical Compl(Ser6zaq) (12/29/16 18:09) Spine, Thoracic-Ap/Lat/Sw(3vw) (12/29/16 18:09) Spine, Lumbar Comp W/Obliq (12/29/16 18:09) Pelvis, Ap Only (Routine) (12/29/16 18:09) Acetamin-Hydrocod 325-5 Mg ([place] 5-325 (12/29/16 19:30) MDM Medical Decision Making Medical Screen Exam Complete: Yes Emergency Medical Condition: Yes Medical Record Reviewed: Yes Differential Diagnosis fx v dislocation v subluxation v contusion Narrative Course per radiologist interpretation no acute fx/dislocation noted, patient able to ambulate on own, and tolerated removal of c collar without any midline ttp and from. Diagnosis Primary Impression: Contusion Qualified Codes: S30.0XXA - Contusion of lower back and pelvis, initial encounter Scripts Codeine-Acetaminophen (Codeine-Acetaminophen) 30-300 mg Tab 1 TAB PO Q4H Y for PAIN, #12 TAB 0 Refills Prov: Celio Goldberg MD 12/29/16 Disposition: 01 DISCHARGE HOME Condition: Stable Celio Goldberg MD Dec 29, 2016 18:20
[2016-12-29 19:10] VITALS: BP 179/82; PULSE 68; RESP 18; O2SAT 98
--- NOTE | 2016-12-29 19:15 | RADRPT ---
EXAM DATE/TIME: 12/29/2016 18:31 [facility] COMPARISON: No previous studies available for comparison. INDICATIONS : Pelvic pain after falling today. MEDICAL HISTORY : Dementia. Cardiovascular disease SURGICAL HISTORY : None. ENCOUNTER: Initial ACUITY: 1 day PAIN SCORE: Non-responsive. LOCATION: Pelvis. FINDINGS: Single AP view of the pelvis demonstrates no fracture or dislocation. Mineralization is within normal limits. There is no significant arthropathy. No soft tissue abnormality or radiopaque foreign body i s identified. CONCLUSION: No acute abnormalities identified. Jimmy Fitch MD on December 29, 2016 at 19:12 Board Certified Radiologist. This report was verified electronically.
--- NOTE | 2016-12-29 19:16 | RADRPT ---
EXAM DATE/TIME: 12/29/2016 18:32 [facility] COMPARISON: No previous studies available for comparison. INDICATIONS : Neck pain after falling today. MEDICAL HISTORY : Dementia. Cardiovascular disease SURGICAL HISTORY : None. ENCOUNTER: Initial ACUITY: 1 day PAIN SCORE: Non-responsive. LOCATION: Cervical. FINDINGS: 5 views of the cervical spine demonstrate undermineralization. No fracture or dislocation is apprecia michele. However, the cervical spine is only visualized to the C6 level on the lateral projection. There is decreased disc height at C5-C6. No prevertebral soft tissue swelling is present. Atlantoaxial rela tionship is within normal limits. Oblique views demonstrate left facet arthrosis at C4-C5. CONCLUSION: Degenerative changes of the cervical spine, as above. No acute cervical spine abnormality is identifi ed through the C6 level. Jimmy Fitch MD on December 29, 2016 at 19:13 Board Certified Radiologist. This report was verified electronically.
--- NOTE | 2016-12-29 19:17 | RADRPT ---
EXAM DATE/TIME: 12/29/2016 18:33 [facility] COMPARISON: No previous studies available for comparison. INDICATIONS : Lower back pain after falling today. MEDICAL HISTORY : Dementia. Cardiovascular disease SURGICAL HISTORY : None. ENCOUNTER: Initial ACUITY: 1 day PAIN SCORE: Non-responsive. LOCATION: Lumbar. FINDINGS: 5 views of the lumbar spine demonstrate 5 mrl-amn-jfegfva lumbar vertebral bodies. No fracture or com pression deformity is present. There is no anterolisthesis or retrolisthesis. Endplate osteophytes ar e present at multiple levels. Surrounding structures demonstrate no acute finding. CONCLUSION: No acute lumbar spine abnormality is identified. Jimmy Fitch MD on December 29, 2016 at 19:15 Board Certified Radiologist. This report was verified electronically.
--- NOTE | 2016-12-29 19:17 | RADRPT ---
EXAM DATE/TIME: 12/29/2016 18:32 [facility] COMPARISON: No previous studies available for comparison. INDICATIONS : Back pain after falling today. MEDICAL HISTORY : Dementia. Cardiovascular disease SURGICAL HISTORY : None. ENCOUNTER: Initial ACUITY: 1 day PAIN SCORE: Non-responsive. LOCATION: Thoracic. FINDINGS: 3 views of the thoracic spine demonstrate no fracture or compression deformity. There is no anterolis thesis or retrolisthesis. There is mild decreased disc height with endplate osteophytes at T11-T12. S urrounding structures demonstrate no acute finding. CONCLUSION: No acute abnormality is identified. Jimmy Fitch MD on December 29, 2016 at 19:14 Board Certified Radiologist. This report was verified electronically.
[2016-12-29] MEDS ORDERED: ACETAMINOPHEN/HYDROcodone 325 MG/5 MG TAB PO ONE (19:30)
[2016-12-29] MEDS ORDERED: CODE30TA2 PO (19:46)
== END 2016-12-29 22:08 | disposition home or self-care (01) ==
LOC: NEPD 17:50
DX: S30.0XXA Contusion of lower back and pelvis, initial encounter (principal); W10.9XXA Fall (on) (from) unspecified stairs and steps, initial encounter; F03.90 Unspecified dementia, unspecified severity, without behavioral disturbance, psychotic disturbance, mood disturbance, and anxiety; E78.00 Pure hypercholesterolemia, unspecified
CPT/HCPCS: 72050; 72072; 72110; 72170; 99284

== ENCOUNTER 2017-01-01 07:35 | Inpatient (IN) | payer MEDICARE, BC ==
[~2017-01-01] VITALS: Ht 162.6 cm; Wt 62.4 kg
[~2017-01-01 07:35] MED LIST changes: +CODE30TA2 PO
[2017-01-01 07:40] VITALS: BP 159/78; PULSE 70; RESP 17; TEMP 98.3; O2SAT 95
--- NOTE | 2017-01-01 07:58 | PD ---
HPI Chief Complaint: Fall Time Seen by Provider: 07:39 Travel History International Travel<30 days: No Contact w/Intl Traveler<30days: No Traveled to known affect area: No History of Present Illness HPI The patient is a 71-year-old female who presents to the emergency department from a skilled nursing after mechanical fall. The patient does have a history of dementia and is a poor historian. The patient does complain of right hip pain, denies any current headache, neck pain, chest pain, shortness breath, nausea, vomiting, or abdominal pain. The patient is is extremely limited historian who is not oriented to month or year. She is able to respond to her name, however, is unable to tell me who she currently lives with. PFSH Past Medical History Anxiety: Yes Cardiovascular Problems: Yes High Cholesterol: Yes Dementia: Yes Diminished Hearing: No Neurologic: Yes Respiratory: Yes (RHINITIS/CHRONIC FATIGUE) ?: Not Social History Alcohol Use: No (denies) Tobacco Use: No (denies) Substance Use: No (denies) Allergies-Medications (Allergen,Severity, Reaction): Coded Allergies: penicillin G (Verified Allergy, Severe, RASH, 01/01/17) procaine (Verified Allergy, Severe, RASH, 01/01/17) sulfacetamide (Verified Allergy, Severe, ITCHING, 01/01/17) sulfamethoxazole (Verified Allergy, Severe, HIVES, 01/01/17) trimethoprim (Verified Allergy, Severe, HIVES, 01/01/17) Reported Meds & Prescriptions Reported Meds & Active Scripts Active Reported Tylenol (Acetaminophen) 325 Mg Tab 650 Mg PO Q4H PRN Seroquel (Quetiapine Fumarate) 25 Mg Tab 25 Mg PO BID Lorazepam 0.5 Mg Tab 0.5 Mg PO Q8H PRN Dymista Nasal [place] (Azelastine-Fluticasone Nasal [place]) 137-50 Mcg [place] 1 [place] EACH NARE BID To each nostril. Namenda Xr (Memantine) 28 Mg Caper 28 Mg PO DAILY Tizanidine (Tizanidine HCl) 4 Mg Cap 4 Mg PO HS PRN Atorvastatin (Atorvastatin Calcium) 20 Mg Tab 20 Mg PO HS Donepezil 10 Mg Tab 10 Mg PO HS Flonase Nasal [place] (Fluticasone Nasal [place]) 50 Mcg/Act [place] 50 Mcg EACH NARE BID Claritin (Loratadine) 10 Mg Cap 10 Mg PO DAILY Review of Systems ROS Limitations: Poor Historian Except as stated in HPI: all other systems reviewed are Neg HENT: No: Headaches, Neck Pain Cardiovascular: No: Chest Pain or Discomfort Respiratory: No: Shortness of Breath Gastrointestinal: No: Nausea, Vomiting, Abdominal Pain Musculoskeletal: Positive: Limited ROM, Pain Neurologic: Positive: Change in Mentation (history of dementia) Physical Exam Narrative GENERAL: Awake, alert, pleasant 71-year-old female who appears her stated age and is in no acute respiratory distress. SKIN: Focused skin assessment warm/dry. HEAD: Atraumatic. Normocephalic. EYES: Pupils equal and round. No injection or drainage. ENT: No nasal bleeding or discharge. Slightly dry mucous members. NECK: Trachea midline. No JVD. CARDIOVASCULAR: Regular rate and rhythm. No murmur appreciated. RESPIRATORY: No accessory muscle use. Clear to auscultation. Breath sounds equal bilaterally. GASTROINTESTINAL: Abdomen soft, non-tender, nondistended. No rebound tenderness. MUSCULOSKELETAL: Tenderness of the lateral aspect of the right hip. Positive distal pulses. NEUROLOGICAL: Awake and alert. No obvious cranial nerve deficits. Motor grossly within normal limits. Normal speech. Patient is oriented to person, however, is unable to tell me the month, year, or her current living conditions. PSYCHIATRIC: Appears demented. Data Data Last Documented VS Vital Signs Date Time Temp Pulse Resp B/P (MAP) Pulse Ox O2 Delivery O2 Flow Rate FiO2 01/01/17 08:18 17 95 Room Air 01/01/17 07:40 98.3 70 159/78 (105) Orders Orders Electrocardiogram (01/01/17 07:50) Complete Blood Count With Diff (01/01/17 07:50) Comprehensive Metabolic Panel (01/01/17 07:50) Prothrombin Time / Inr (Pt) (01/01/17 07:50) Act Partial Throm Time (Ptt) (01/01/17 07:50) Urinalysis - C+S If Indicated (01/01/17 07:50) Type And Screen (01/01/17 07:50) Chest, Single Ap (01/01/17 07:50) Iv Access Insert/Monitor (01/01/17 07:50) Oximetry (01/01/17 07:50) Ecg Monitoring (01/01/17 07:50) Morphine Inj (Morphine Inj) (01/01/17 08:00) Ondansetron Inj (Zofran Inj) (01/01/17 08:00) Sodium Chloride 0.9% Flush (Ns Flush) (01/01/17 08:00) Hip, Uni(Ap&Lat) W Ap Pelvis (01/01/17 ) Urinary Catheter Insert/Apply (01/01/17 09:19) Atorvastatin (Lipitor) (01/01/17 21:00) Donepezil (Aricept) (01/01/17 21:00) Quetiapine (Seroquel) (01/01/17 21:00) Tizanidine Hcl (Zanaflex) (01/01/17 09:45) (Nf) Memantine Er (Namenda Xr) (01/02/17 09:00) Admit To Inpatient (01/01/17 ) Vital Signs (Adult) Q4H (01/01/17 09:39) Activity Bed Rest (01/01/17 09:39) Projects Manager / Telemetry .CONTINUOUS (01/01/17 09:39) Intake + Output EH.QSHIFT (01/01/17 09:39) Notify Dr: Other (01/01/17 09:39) Diet Npo (01/01/17 Breakfast) Sodium Chlor 0.9% 1000 Ml Inj (Ns 1000 M (01/01/17 09:39) Sodium Chloride 0.9% Flush (Ns Flush) (01/01/17 09:45) Sodium Chloride 0.9% Flush (Ns Flush) (01/01/17 21:00) Acetaminophen (Tylenol) (01/01/17 09:45) Ondansetron Inj (Zofran Inj) (01/01/17 09:45) Basic Metabolic Panel (Bmp) (01/02/17 06:00) Complete Blood Count With Diff (01/02/17 06:00) Creatine Kinase (Cpk) (01/01/17 09:39) Creatine Kinase (Cpk) (01/01/17 15:39) Troponin I (01/01/17 09:39) Troponin I (01/01/17 15:39) Prothrombin Time / Inr (Pt) (01/02/17 06:00) Pt Request For Service (01/01/17 09:39) Ot Request For Service (01/01/17 09:39) Case Management Consult (01/01/17 09:39) Scd Bilateral/Knee High EH.BID (01/01/17 09:39) Naloxone Inj (Narcan Inj) (01/01/17 09:45) Docusate Sodium-Senna (Nieves-Colace) (01/01/17 21:00) Magnesium Hydroxide Liq (Milk Of Magnesi (01/01/17 09:45) Sennosides (Senokot) (01/01/17 09:45) Bisacodyl Supp (Dulcolax Supp) (01/01/17 09:45) Lactulose Liq (Lactulose Liq) (01/01/17 09:45) Inpatient Certification (01/01/17 ) Admit Order (Ed Use Only) (01/01/17 09:45) Labs Laboratory Tests Test 01/01/17 07:55 White Blood Count 10.8 TH/MM3 Red Blood Count 4.63 MIL/MM3 Hemoglobin 13.9 GM/DL Hematocrit 42.3 % Mean Corpuscular Volume 91.3 FL Mean Corpuscular Hemoglobin 29.9 PG Mean Corpuscular Hemoglobin Concent 32.8 % Red Cell Distribution Width 13.2 % Platelet Count 213 TH/MM3 Mean Platelet Volume 9.0 FL Neutrophils (%) (Auto) 85.7 % Lymphocytes (%) (Auto) 8.6 % Monocytes (%) (Auto) 4.7 % Eosinophils (%) (Auto) 0.9 % Basophils (%) (Auto) 0.1 % Neutrophils # (Auto) 9.2 TH/MM3 Lymphocytes # (Auto) 0.9 TH/MM3 Monocytes # (Auto) 0.5 TH/MM3 Eosinophils # (Auto) 0.1 TH/MM3 Basophils # (Auto) 0.0 TH/MM3 CBC Comment DIFF FINAL Differential Comment Prothrombin Time 10.3 SEC Prothromb Time International Ratio 0.9 RATIO Activated Partial Thromboplast Time 21.8 SEC Blood Urea Nitrogen 11 MG/DL Creatinine 0.79 MG/DL Random Glucose 109 MG/DL Total Protein 6.9 GM/DL Albumin 3.3 GM/DL Calcium Level 8.9 MG/DL Alkaline Phosphatase 180 U/L Aspartate Amino Transf (AST/SGOT) 112 U/L Alanine Aminotransferase (ALT/SGPT) 152 U/L Total Bilirubin 1.1 MG/DL Sodium Level 138 MEQ/L Potassium Level 4.2 MEQ/L Chloride Level 103 MEQ/L Carbon Dioxide Level 25.9 MEQ/L Anion Gap 9 MEQ/L Estimat Glomerular Filtration Rate 72 ML/MIN [facility] Medical Decision Making Medical Screen Exam Complete: Yes Emergency Medical Condition: Yes Medical Record Reviewed: Yes Interpretation(s) Chest x-ray reveals no acute disease X-ray the right hip reveals a right femoral neck fracture Laboratory Tests Test 01/01/17 07:55 White Blood Count 10.8 TH/MM3 Red Blood Count 4.63 MIL/MM3 Hemoglobin 13.9 GM/DL Hematocrit 42.3 % Mean Corpuscular Volume 91.3 FL Mean Corpuscular Hemoglobin 29.9 PG Mean Corpuscular Hemoglobin Concent 32.8 % Red Cell Distribution Width 13.2 % Platelet Count 213 TH/MM3 Mean Platelet Volume 9.0 FL Neutrophils (%) (Auto) 85.7 % Lymphocytes (%) (Auto) 8.6 % Monocytes (%) (Auto) 4.7 % Eosinophils (%) (Auto) 0.9 % Basophils (%) (Auto) 0.1 % Neutrophils # (Auto) 9.2 TH/MM3 Lymphocytes # (Auto) 0.9 TH/MM3 Monocytes # (Auto) 0.5 TH/MM3 Eosinophils # (Auto) 0.1 TH/MM3 Basophils # (Auto) 0.0 TH/MM3 CBC Comment DIFF FINAL Differential Comment Prothrombin Time 10.3 SEC Prothromb Time International Ratio 0.9 RATIO Activated Partial Thromboplast Time 21.8 SEC Blood Urea Nitrogen 11 MG/DL Creatinine 0.79 MG/DL Random Glucose 109 MG/DL Total Protein 6.9 GM/DL Albumin 3.3 GM/DL Calcium Level 8.9 MG/DL Alkaline Phosphatase 180 U/L Aspartate Amino Transf (AST/SGOT) 112 U/L Alanine Aminotransferase (ALT/SGPT) 152 U/L Total Bilirubin 1.1 MG/DL Sodium Level 138 MEQ/L Potassium Level 4.2 MEQ/L Chloride Level 103 MEQ/L Carbon Dioxide Level 25.9 MEQ/L Anion Gap 9 MEQ/L Estimat Glomerular Filtration Rate 72 ML/MIN EKG reveals sinus bradycardia with a heart rate of 59. QTC 447 ms. Inverted T waves noted in lead V3, V4, V5, and V6. Differential Diagnosis Differential diagnosis includes hip fracture, hip dislocation, pelvic fracture, contusion, sprain, strain, mechanical fall, dehydration. Narrative Course IV was established, labs are drawn and sent, and the patient was placed on cardiac telemetry monitoring and continuous pulse oximetry monitoring. EKG was ordered and interpreted. Chest x-ray and pelvis x-ray with right hip x-ray were obtained. The patient was administered morphine and Zofran for her symptoms. X-ray of the pelvis and right hip reveals a right femoral neck fracture. The patient's physician of record at the skilled nursing is Dr. Jeffers, therefore, the on-call medical service was paged for admission. The on-call orthopedic surgeon, Dr. Humphries, was paged. The patient will be kept nothing by mouth. Raza catheter was ordered. The patient's LFTs are mildly elevated, otherwise labs are unremarkable. The patient will be admitted to the medical service. The patient was seen by the orthopedic physician assistant art director at bedside. Physician Communication Physician Communication The on-call medical service was paged for admission. The on-call orthopedic physician was paged. I discussed the patient with Dr. Mohr who agrees with admission. Diagnosis Primary Impression: Hip fracture Qualified Codes: S72.001A - Fracture of unspecified part of neck of right femur, initial encounter for closed fracture Additional Impression: Elevated transaminase level Admitting Information Admitting Physician Requests: Admit Condition: Stable Barrie Felipe MD Jan 01, 2017 07:58
[2017-01-01] MEDS ORDERED: SODIUM CHLORIDE 0.9% FLUSH 10 ML FLUSH IVF PRN (08:00)
[2017-01-01] MEDS ORDERED: ONDANSETRON HCL 4 MG/2 ML VIAL IVP ONE (08:00)
[2017-01-01] MEDS ORDERED: MORPHINE SULFATE 4 MG/ML INJ IV PUSH ONE (08:00)
[2017-01-01 08:18] LABS: AUTOMATED NEUTROPHIL # 9.2 TH/MM3 (1.8-7.7); BASOPHIL % 0.1 % (0.0-2.0); EOSINOPHIL # 0.1 TH/MM3 (0-0.4); EOSINOPHIL % 0.9 % (0.0-4.0); HEMATOCRIT 42.3 % (35.0-46.0); HEMO FLAGS DIFF FINAL; LYMPH % 8.6 % (9.0-44.0); LYMPHOCYTE # 0.9 TH/MM3 (1.0-4.8); MEAN CELL VOLUME 91.3 FL (80.0-100.0); MEAN CORPUSCULAR HEMOGLOBIN 29.9 PG (27.0-34.0); MEAN CORPUSCULAR HGB CONC 32.8 % (32.0-36.0); MONO % 4.7 % (0.0-8.0); NEUT % 85.7 % (16.0-70.0); PLATELET COUNT 213 TH/MM3 (150-450); RED BLOOD COUNT 4.63 MIL/MM3 (4.00-5.30); RED CELL DISTRIBUTION WIDTH 13.2 % (11.6-17.2); WHITE BLOOD COUNT 10.8 TH/MM3 (4.0-11.0)
[2017-01-01 08:27] LABS: APTT (PATIENT) 21.8 SEC (24.3-30.1); INTERNATIONAL NORMALIZED RATIO 0.9 RATIO; PROTHROMBIN TIME - PATIENT 10.3 SEC (9.8-11.6)
[2017-01-01 08:38] LABS: ALKALINE PHOSPHATASE 180 U/L (45-117); TOTAL BILIRUBIN ADULT 1.1 MG/DL (0.2-1.0)
[2017-01-01 08:44] LABS: ALT (GPT) 152 U/L (10-53); ANION GAP 9 MEQ/L (5-15); BICARBONATE 25.9 MEQ/L (21.0-32.0); BLOOD UREA NITROGEN 11 MG/DL (7-18); CHLORIDE 103 MEQ/L (98-107); GLOMERULAR FILTRATION RATE 72 ML/MIN (>89); SODIUM (NA) 138 MEQ/L (136-145)
[2017-01-01 08:48] LABS: AST (GOT) 112 U/L (15-37); POTASSIUM 4.2 MEQ/L (3.5-5.1)
--- NOTE | 2017-01-01 09:12 | RADRPT ---
EXAM DATE/TIME: 01/01/2017 08:46 [facility] COMPARISON: CHEST SINGLE AP, August 11, 2016, 14:30. INDICATIONS : Pain from fall. MEDICAL HISTORY : None. SURGICAL HISTORY : None. ENCOUNTER: Initial ACUITY: 1 day PAIN SCORE: 10/10 LOCATION: Right hip. FINDINGS: A single view of the chest demonstrates the lungs to be symmetrically aerated without evidence of mas s, infiltrate or effusion. The cardiomediastinal contours are unremarkable. Osseous structures are intact. CONCLUSION: No acute disease. Carrol Mills MD on January 01, 2017 at 9:10 Board Certified Radiologist. This report was verified electronically.
--- NOTE | 2017-01-01 09:14 | RADRPT ---
EXAM DATE/TIME: 01/01/2017 08:50 [facility] COMPARISON: PELVIS AP ONLY, December 29, 2016, 18:31. INDICATIONS : Pain from fall. MEDICAL HISTORY : None. SURGICAL HISTORY : None. ENCOUNTER: Initial ACUITY: 1 day PAIN SCORE: 0/10 LOCATION: Bilateral chest FINDINGS: Imaging of the pelvis and right hip demonstrate an mildly displaced right femoral neck fracture. This was not visible on prior plain radiograph. The remainder of the osseous structures appear intact. CONCLUSION: Right femoral neck fracture. Carrol Mills MD on January 01, 2017 at 9:11 Board Certified Radiologist. This report was verified electronically.
[2017-01-01] MEDS: SODIUM CHLOR 0.9% 1000 ML INJ 1,000 ML IV SCH ×2 (09:39→21:42)
[2017-01-01] MEDS ORDERED: ONDANSETRON HCL 4 MG/2 ML VIAL IVP PRN (09:45)
[2017-01-01] MEDS ORDERED: SODIUM CHLORIDE 0.9% FLUSH 10 ML FLUSH IV FLUSH PRN (09:45)
[2017-01-01] MEDS ORDERED: BISACODYL 10 MG SUPP RECTAL PRN (09:45)
[2017-01-01] MEDS ORDERED: NALOXONE HCL 0.4 MG/ML AMP IV PRN (09:45)
[2017-01-01] MEDS ORDERED: LACTULOSE SYRUP 20 GM/30 ML CUP PO PRN (09:45)
[2017-01-01] MEDS ORDERED: SENNOSIDES 8.6 MG TAB PO PRN (09:45)
[2017-01-01] MEDS ORDERED: ACETAMINOPHEN 325 MG TAB PO PRN (09:45)
[2017-01-01] MEDS ORDERED: MAGNESIUM HYDROXIDE SUSP 30 ML CUP PO PRN (09:45)
[2017-01-01 10:50] LABS: BLOOD, URINE NEG (NEG); COMMENT (UR) CATH-CULT NOT IND; CULTURE IF INDICATED CATH CULTURE NOT IND; GLUCOSE,URINE NEG (NEG); KETONE, URINE NEG (NEG); MUCUS URINE FEW /lpf (OCC); NITRITE,URINE NEG (NEG); URINE COLOR YELLOW (YELLW/STRAW)
--- NOTE | 2017-01-01 10:51 | HHI.HP ---
HPI Service [facility] Primary Care Physician Arian Jeffers MD Admission Diagnosis right hip fracture, dementia Diagnoses: Chief Complaint: Pt unable to provide chief complaint. Travel History International Travel<30 Days: No Contact w/Intl Traveler <30 Da: No Traveled to Known Affected Are: No History of Present Illness Written by Jose Marion PA-C, acting as scribe for Dr. Steven Mohr on 01/01/17 at 10:15. Mrs. Mercedes is 71 yo, with history of dementia and hyperlipidemia, and cardiovascular disease. She was treated at [facility] in late November, for a UTI. Pt' s dementia is significant that she is unable to provide reliable history. Per pt 's son (Luciano Mercedes, contacted at [phone]) "other than the dementia, my mother is fine as a horse." Pt is unable to explain why she is here and denies pain or discomfort. Per the ED record, pt suffered a fall this morning and was brought from her half-way to [facility] as a result of pain and inability to walk after the fall. Imaging indicates pt has a fracture of her right femoral neck. Labs indicated elevated liver enzymes (AST 112, ALT 152, Alk phos 180) and bilirubin was 1.1. A 10 point ROS could not be adequately completed due to pt's impaired memory. Per ED physician, orthopedics has been contacted and saw Mrs. Mercedes in the ED. Review of Systems ROS Limitations: Poor Historian Except as stated in HPI: all other systems reviewed are Neg Past Family Social History Past Medical History Dementia Cardiovascular disease Hyperlipidemia Past Surgical History None Reported Medications Reported Meds & Active Scripts Active Reported Tylenol (Acetaminophen) 325 Mg Tab 650 Mg PO Q4H PRN Seroquel (Quetiapine Fumarate) 25 Mg Tab 25 Mg PO BID Lorazepam 0.5 Mg Tab 0.5 Mg PO Q8H PRN Dymista Nasal [place] (Azelastine-Fluticasone Nasal [place]) 137-50 Mcg [place] 1 [place] EACH NARE BID To each nostril. Namenda Xr (Memantine) 28 Mg Caper 28 Mg PO DAILY Tizanidine (Tizanidine HCl) 4 Mg Cap 4 Mg PO HS PRN Atorvastatin (Atorvastatin Calcium) 20 Mg Tab 20 Mg PO HS Donepezil 10 Mg Tab 10 Mg PO HS Flonase Nasal [place] (Fluticasone Nasal [place]) 50 Mcg/Act [place] 50 Mcg EACH NARE BID Claritin (Loratadine) 10 Mg Cap 10 Mg PO DAILY Allergies: Coded Allergies: penicillin G (Verified Allergy, Severe, RASH, 01/01/17) procaine (Verified Allergy, Severe, RASH, 01/01/17) sulfacetamide (Verified Allergy, Severe, ITCHING, 01/01/17) sulfamethoxazole (Verified Allergy, Severe, HIVES, 01/01/17) trimethoprim (Verified Allergy, Severe, HIVES, 01/01/17) Active Ordered Medications Current Medications Medications (Trade) Dose Ordered Sig/Aguilar Route Start Time Stop Time Status Last Admin (NS Flush) 2 ml UNSCH PRN IVF 01/01/17 08:00 01/01/17 08:12 (Lipitor) 20 mg HS PO 01/01/17 21:00 (Aricept) 10 mg HS PO 01/01/17 21:00 (SEROquel) 25 mg BID PO 01/01/17 21:00 (Zanaflex) 4 mg HS PRN PO 01/01/17 09:45 (Namenda) 10 mg BID PO 01/01/17 12:00 Sodium Chloride 1,000 ml @ 83 mls/hr Q12H3M IV 01/01/17 09:39 (NS Flush) 2 ml UNSCH PRN IV FLUSH 01/01/17 09:45 (NS Flush) 2 ml BID IV FLUSH 01/01/17 21:00 (Tylenol) 650 mg Q4H PRN PO 01/01/17 09:45 (Zofran Inj) 4 mg Q6H PRN IVP 01/01/17 09:45 (Narcan Inj) 0.4 mg UNSCH PRN IV 01/01/17 09:45 (Nieves-Colace) 1 tab BID PO 01/01/17 21:00 (Milk Of Magnesia Liq) 30 ml Q12H PRN PO 01/01/17 09:45 (Senokot) 17.2 mg Q12H PRN PO 01/01/17 09:45 (Dulcolax Supp) 10 mg DAILY PRN RECTAL 01/01/17 09:45 (Lactulose Liq) 30 ml DAILY PRN PO 01/01/17 09:45 Family History Per pt's son, there is no known family history of heart disease or diabetes. Social History Pt is negative for illicit/recreational drug use. Negative nicotine use history. Negative for alcohol use. Physical Exam Vital Signs Vital Signs Date Time Temp Pulse Resp B/P (MAP) Pulse Ox O2 Delivery O2 Flow Rate FiO2 01/01/17 08:18 17 95 Room Air 01/01/17 07:40 98.3 70 17 159/78 (105) 95 Physical Exam GENERAL: This is a well-nourished, well-developed patient, in no apparent distress. SKIN: No rashes or lesions. Cool and dry. Ecchymoses noted on right lower leg, gauze bandage noted or left lower leg HEAD: Atraumatic. Normocephalic. EYES: Pupils equal round and reactive. Extraocular motions intact. No scleral icterus. No injection or drainage. ENT: Nose without bleeding or purulent drainage. Airway patent. Thrush noted on tongue. NECK: Trachea midline. No lymphadenopathy. Supple and nontender. CARDIOVASCULAR: Regular rate and rhythm without murmurs, gallops, or rubs. RESPIRATORY: Clear to auscultation. Breath sounds equal bilaterally. No wheezes , rales, or rhonchi. GASTROINTESTINAL: Abdomen soft, non-tender, nondistended. No hepato-splenomegaly , or guarding. MUSCULOSKELETAL: Extremities without clubbing, cyanosis, or edema. NEUROLOGICAL: Awake and alert. Cranial nerves II through XII intact. Motor and sensory grossly within normal limits. Five out of 5 muscle strength in all muscle groups; right lower extremity was not tested due to right femoral neck fracture.. Speech was clear and fluent. PSYCHIATRIC: Pt oriented to self. Stated she was in a town in [place]. Could not identify year. As orientation questions were asked, pt's pleasant demeanor lessened. Laboratory Laboratory Tests Test 01/01/17 07:55 White Blood Count 10.8 Red Blood Count 4.63 Hemoglobin 13.9 Hematocrit 42.3 Mean Corpuscular Volume 91.3 Mean Corpuscular Hemoglobin 29.9 Mean Corpuscular Hemoglobin Concent 32.8 Red Cell Distribution Width 13.2 Platelet Count 213 Mean Platelet Volume 9.0 Neutrophils (%) (Auto) 85.7 Lymphocytes (%) (Auto) 8.6 Monocytes (%) (Auto) 4.7 Eosinophils (%) (Auto) 0.9 Basophils (%) (Auto) 0.1 Neutrophils # (Auto) 9.2 Lymphocytes # (Auto) 0.9 Monocytes # (Auto) 0.5 Eosinophils # (Auto) 0.1 Basophils # (Auto) 0.0 CBC Comment DIFF FINAL Differential Comment Prothrombin Time 10.3 Prothromb Time International Ratio 0.9 Activated Partial Thromboplast Time 21.8 Blood Urea Nitrogen 11 Creatinine 0.79 Random Glucose 109 Total Protein 6.9 Albumin 3.3 Calcium Level 8.9 Alkaline Phosphatase 180 Aspartate Amino Transf (AST/SGOT) 112 Alanine Aminotransferase (ALT/SGPT) 152 Total Bilirubin 1.1 Sodium Level 138 Potassium Level 4.2 Chloride Level 103 Carbon Dioxide Level 25.9 Anion Gap 9 Estimat Glomerular Filtration Rate 72 Result Diagram: 01/01/17 0755 01/01/17 0755 Imaging Last Impressions Chest X-Ray 01/01/17 0750 Signed Impressions: Service Date/Time: Sunday, January 01, 2017 08:46 - CONCLUSION: No acute disease. Carrol Mills MD Hip and Pelvis X-Ray 01/01/17 0000 Signed Impressions: Service Date/Time: Sunday, January 01, 2017 08:50 - CONCLUSION: Right femoral neck fracture. Carrol Mills MD Caprini VTE Risk Assessment Caprini VTE Risk Assessment: Mod/High Risk (score >= 2) VTE Pharm Contraindication: Pt is expected to undergo right femur frafture repair, AC agents may delay procedure. AC to be initiated when cleared by surgery. Caprini Risk Assessment Model Point Value = 1 Point Value = 2 Point Value = 3 Point Value = 5 Age 41-60 Minor surgery BMI > 25 kg/m2 Swollen legs Varicose veins or History of unexplained or recurrent spontaneous Oral contraceptives or hormone replacement Sepsis (< 1 month) Serious lung disease, including pneumonia (< 1 month) Abnormal pulmonary function Acute myocardial infarction Congestive heart failure (< 1 month) History of inflammatory bowel disease Medical patient at bed rest Age 61-74 Arthroscopic surgery Major open surgery (> 45 min) Laparoscopic surgery (> 45 min) Malignancy Confined to bed (> 72 hours) Immobilizing plaster cast Central venous access Age >= 75 History of VTE Family history of VTE Factor V Leiden Prothrombin [id number] Lupus anticoagulant Anticardiolipin antibodies Elevated serum homocysteine Heparin-induced thrombocytopenia Other congenital or acquired thrombophilia Stroke (< 1 month) Elective arthroplasty Hip, pelvis, or leg fracture Acute spinal cord injury (< 1 month) Prophylaxis Regimen Total Risk Factor Score Risk Level Prophylaxis Regimen 0-1 Low Early ambulation 2 Moderate Order ONE of the following: *Sequential Compression Device (SCD) *Heparin 5000 units SQ BID 3-4 Higher Order ONE of the following medications: *Heparin 5000 units SQ TID *Enoxaparin/Lovenox 40 mg SQ daily (WT < 150 kg, CrCl > 30 mL/min) *Enoxaparin/Lovenox 30 mg SQ daily (WT < 150 kg, CrCl > 10-29 mL/min) *Enoxaparin/Lovenox 30 mg SQ BID (WT < 150 kg, CrCl > 30 mL/min) AND/OR *Sequential Compression Device (SCD) 5 or more Highest Order ONE of the following medications: *Heparin 5000 units SQ TID (Preferred with Epidurals) *Enoxaparin/Lovenox 40 mg SQ daily (WT < 150 kg, CrCl > 30 mL/min) *Enoxaparin/Lovenox 30 mg SQ daily (WT < 150 kg, CrCl > 10-29 mL/min) *Enoxaparin/Lovenox 30 mg SQ BID (WT < 150 kg, CrCl > 30 mL/min) AND *Sequential Compression Device (SCD) Assessment and Plan Problem List: (1) Hip fracture ICD Code: S72.009A - Fracture of unspecified part of neck of unspecified femur , initial encounter for closed fracture Status: Acute (2) Elevated transaminase level ICD Code: R74.0 - Nonspecific elevation of levels of transaminase and lactic acid dehydrogenase [LDH] Status: Acute (3) Dementia ICD Code: F03.90 - Unspecified dementia without behavioral disturbance Status: Chronic Assessment and Plan Mrs. Mercedes is 71 yo, with history of dementia and hyperlipidemia, and cardiovascular disease. She was treated at [facility] in late November, for a UTI. Hip fracture Right femoral neck fracture -Admit to hospitalist service -Ortho has been consulted -Pain management PRN -PT consulted Dementia -Continue home regimen of memantine er 28 mg and donepezil 10 mg -Continue home regimen of Seroquel 25 mg bid Hyperlipidemia -atorvastatin 20 mg Transaminitis -Avoid hepatotoxic agents -monitor Thrush -oral Nystatin Diet: pt NPO in advance of possible surgery. DVT prophylaxis: pharmacological agents held at this time due to impending surgery. Will initiate once cleared by surgery. SCD's ordered upon admission. Seen in emergency room with Mr. Glenn Marion The exam, history, and the medical decision-making described in the above note were completed with the assistance of the mid-level provider. I reviewed and agree with the findings presented. I attest that I had a [id number] encounter with the patient on the same day, and personally performed and documented my assessment and findings in the medical record. Discussed Condition With Pt, her son Luciano (by phone) and ED staff Physician Certification 2 Midnight Certification Type: Admission for Inpatient Services Order for Inpatient Services The services are ordered in accordance with Medicare regulations or non- Medicare payer requirements, as applicable. In the case of services not specified as inpatient-only, they are appropriately provided as inpatient services in accordance with the 2-midnight benchmark. Estimated LOS (days): 3 Three days is the estimated time the patient will need to remain in the hospital , assuming treatment plan goals are met and no additional complications. Post-Hospital Plan: SNF Problem Qualifiers (1) Hip fracture: Qualified Codes: S72.001A - Fracture of unspecified part of neck of right femur , initial encounter for closed fracture (2) Dementia: Qualified Codes: F03.90 - Unspecified dementia without behavioral disturbance Jose Marion Jr. Jan 01, 2017 10:51 Nathan Horn MD Jan 01, 2017 13:57
[2017-01-01 11:19] VITALS: BP 136/76; PULSE 100; RESP 17; O2SAT 95
[2017-01-01] MEDS: MEMANTINE HCL 10 MG TAB PO SCH ×2 (12:00→20:46)
[2017-01-01] MEDS: NYSTATIN SUSP 500,000 U/5 ML CUP SWISH-SWAL SCH ×3 (12:15→20:46)
--- NOTE | 2017-01-01 14:02 | PD.CONS ---
cc: Luciano Humphries MD right displaced femoral neck fracture. (Danyelle Lambert) [facility] Service Orthopedic Surgeons Consult Requested By ER Staff Reason for Consult right femoral neck fracture Primary Care Physician Arian Jeffers MD Admission Diagnosis right hip fracture, dementia Diagnoses: (1) Fall Diagnosis: Principal (2) Closed displaced fracture of right femoral neck Diagnosis: Principal (3) Elevated transaminase level (4) Dementia Chief Complaint: fall, right femoral neck fracture (Danyelle Lambert) History of Present Illness 71 year old female with severe dementia was found this morning on the ground in her assisted nursing facility where she resides. It appears the patient had an unwitnessed fall. Staff called EMS this morning and patient was brought to [facility]. Patient appeared to have right lower extremity pain. Upon evaluation and imaging it was revealed that the patient suffered a closed severely displaced right femoral neck fracture of the proximal femur. It appears the patient ambulated with a walker prior to this injury and does not have a history of any previous orthopedic conditions or surgeries. The patient is not anticoagulated. Subjective is unobtainable from patient secondary to dementia. Subjective is obtained from ER physician. Patient was examined in ER. (Danyelle Lambert) Review of Systems unobtainable (Danyelle Lambert) Past Family Social History Past Medical History Dementia Cardiovascular disease Hyperlipidemia Past Surgical History None (Danyelle Lambert) Allergies: Coded Allergies: penicillin G (Verified Allergy, Severe, RASH, 01/01/17) procaine (Verified Allergy, Severe, RASH, 01/01/17) sulfacetamide (Verified Allergy, Severe, ITCHING, 01/01/17) sulfamethoxazole (Verified Allergy, Severe, HIVES, 01/01/17) trimethoprim (Verified Allergy, Severe, HIVES, 01/01/17) Active Ordered Medications Current Medications Medications (Trade) Dose Ordered Sig/Aguilar Route Start Time Stop Time Status Last Admin (Lipitor) 20 mg HS PO 01/01/17 21:00 (Aricept) 10 mg HS PO 01/01/17 21:00 (SEROquel) 25 mg BID PO 01/01/17 21:00 (Zanaflex) 4 mg HS PRN PO 01/01/17 09:45 (Namenda) 10 mg BID PO 01/01/17 12:00 Sodium Chloride 1,000 ml @ 83 mls/hr Q12H3M IV 01/01/17 09:39 (NS Flush) 2 ml UNSCH PRN IV FLUSH 01/01/17 09:45 (NS Flush) 2 ml BID IV FLUSH 01/01/17 21:00 (Tylenol) 650 mg Q4H PRN PO 01/01/17 09:45 (Zofran Inj) 4 mg Q6H PRN IVP 01/01/17 09:45 (Narcan Inj) 0.4 mg UNSCH PRN IV 01/01/17 09:45 (Nieves-Colace) 1 tab BID PO 01/01/17 21:00 (Milk Of Magnesia Liq) 30 ml Q12H PRN PO 01/01/17 09:45 (Senokot) 17.2 mg Q12H PRN PO 01/01/17 09:45 (Dulcolax Supp) 10 mg DAILY PRN RECTAL 01/01/17 09:45 (Lactulose Liq) 30 ml DAILY PRN PO 01/01/17 09:45 (Mycostatin Liq) 5 ml QID SWISH-SWAL 01/01/17 13:00 Reported Meds & Active Scripts Active Reported Tylenol (Acetaminophen) 325 Mg Tab 650 Mg PO Q4H PRN Seroquel (Quetiapine Fumarate) 25 Mg Tab 25 Mg PO BID Lorazepam 0.5 Mg Tab 0.5 Mg PO Q8H PRN Dymista Nasal [place] (Azelastine-Fluticasone Nasal [place]) 137-50 Mcg [place] 1 [place] EACH NARE BID To each nostril. Namenda Xr (Memantine) 28 Mg Caper 28 Mg PO DAILY Tizanidine (Tizanidine HCl) 4 Mg Cap 4 Mg PO HS PRN Atorvastatin (Atorvastatin Calcium) 20 Mg Tab 20 Mg PO HS Donepezil 10 Mg Tab 10 Mg PO HS Flonase Nasal [place] (Fluticasone Nasal [place]) 50 Mcg/Act [place] 50 Mcg EACH NARE BID Claritin (Loratadine) 10 Mg Cap 10 Mg PO DAILY Family History Per pt's son, there is no known family history of heart disease or diabetes. Social History Pt is negative for illicit/recreational drug use. Negative nicotine use history. Negative for alcohol use. (Clapper,Danyelle Simley PA) Physical Exam Vital Signs Vital Signs Date Time Temp Pulse Resp B/P (MAP) Pulse Ox O2 Delivery O2 Flow Rate FiO2 01/01/17 11:19 100 17 136/76 (96) 95 Room Air 01/01/17 11:00 95 Room Air 01/01/17 08:18 17 95 Room Air 01/01/17 07:40 98.3 70 17 159/78 (105) 95 Physical Exam RLE: in ER, pain with any attempts at ROM, calf is soft, negative Reji's sign, sensation exam unobtainable. No other signs of musculoskeletal injury. Laboratory Laboratory Tests Test 01/01/17 07:55 01/01/17 10:30 White Blood Count 10.8 Red Blood Count 4.63 Hemoglobin 13.9 Hematocrit 42.3 Mean Corpuscular Volume 91.3 Mean Corpuscular Hemoglobin 29.9 Mean Corpuscular Hemoglobin Concent 32.8 Red Cell Distribution Width 13.2 Platelet Count 213 Mean Platelet Volume 9.0 Neutrophils (%) (Auto) 85.7 Lymphocytes (%) (Auto) 8.6 Monocytes (%) (Auto) 4.7 Eosinophils (%) (Auto) 0.9 Basophils (%) (Auto) 0.1 Neutrophils # (Auto) 9.2 Lymphocytes # (Auto) 0.9 Monocytes # (Auto) 0.5 Eosinophils # (Auto) 0.1 Basophils # (Auto) 0.0 CBC Comment DIFF FINAL Differential Comment Prothrombin Time 10.3 Prothromb Time International Ratio 0.9 Activated Partial Thromboplast Time 21.8 Blood Urea Nitrogen 11 Creatinine 0.79 Random Glucose 109 Total Protein 6.9 Albumin 3.3 Calcium Level 8.9 Alkaline Phosphatase 180 Aspartate Amino Transf (AST/SGOT) 112 Alanine Aminotransferase (ALT/SGPT) 152 Total Bilirubin 1.1 Sodium Level 138 Potassium Level 4.2 Chloride Level 103 Carbon Dioxide Level 25.9 Anion Gap 9 Estimat Glomerular Filtration Rate 72 Urine Color YELLOW Urine Turbidity CLEAR Urine pH 6.0 Urine Specific [place] 1.011 Urine Protein NEG Urine Glucose (UA) NEG Urine Ketones NEG Urine Occult Blood NEG Urine Nitrite NEG Urine Bilirubin NEG Urine Urobilinogen LESS THAN 2.0 Urine Leukocyte Esterase NEG Urine RBC 1 Urine WBC LESS THAN 1 Urine Mucus FEW Microscopic Urinalysis Comment CATH-CULT NOT IND (Danyelle Lambert) Result Diagram: 01/01/17 0755 01/01/17 0755 Imaging Last Impressions Chest X-Ray 01/01/17 0750 Signed Impressions: Service Date/Time: Sunday, January 01, 2017 08:46 - CONCLUSION: No acute disease. Carrol Mills MD Hip and Pelvis X-Ray 01/01/17 0000 Signed Impressions: Service Date/Time: Sunday, January 01, 2017 08:50 - CONCLUSION: Right femoral neck fracture. Carrol Mills MD Course see medical record. (Danyelle Lambert) Assessment & Plan Problem List: (1) Fall ICD Codes: W19.XXXA - Unspecified fall, initial encounter Status: Acute (2) Closed displaced fracture of right femoral neck ICD Codes: S72.001A - Fracture of unspecified part of neck of right femur, initial encounter for closed fracture Status: Acute (3) Dementia ICD Codes: F03.90 - Unspecified dementia without behavioral disturbance Status: Chronic Qualifiers: Qualified Codes: F03.90 - Unspecified dementia without behavioral disturbance Assessment and Plan The findings were discussed with the patient. Recommendations are given for surgical management, right hip hemiarthroplasty, to allow for mobilization and pain control. The nature of the planned surgical procedure, the risks, the benefits as well as postoperative expectations have been discussed with the ER staff in detail, as the patient is demented. In addition, alternatives of the treatment and risks were discussed. Consent will need to be obtained from POA, son is point of contact at nursing facility. Patient has been marked. NPO. Written by Danyelle Lambert (Ashley), acting as scribe for Dr. Humphries on at 13:52. (Danyelle Lambert) Assessment and Plan This note was transcribed by matthew Lambert PA-C. I, Dr. Luciano Humphries personally performed the history, physical exam, and medical decision making; and confirmed the accuracy of the information in the transcribed note. Authenticated by Dr. Luciano Humphries on 01/01/17 at 16:37. (Luciano Humphries MD) Danyelle Lambert Jan 01, 2017 14:02 Luciano Humphries MD Jan 01, 2017 16:39
[2017-01-01 14:07] LABS: CREATINE KINASE 105 U/L (26-192)
[2017-01-01 16:00] VITALS: BP_SYST 124; BP_SYST 136; BP_DIAS 59; BP_DIAS 71; PULSE 104; PULSE 115; RESP 17; RESP 19; TEMP 95.8; TEMP 98.8; O2SAT 94; O2SAT 96
[2017-01-01] MEDS: LORazepam 2 MG/ML VIAL IV PUSH PRN ×2 (16:00→21:54)
[2017-01-01] MEDS ORDERED: MORPHINE SULFATE 4 MG/ML INJ IV PRN (18:00)
[2017-01-01 20:40] VITALS: BP 158/73; PULSE 115; RESP 16; TEMP 97.2; O2SAT 95
[2017-01-01] MEDS: QUEtiapine FUMARATE 25 MG TAB PO SCH (20:46)
[2017-01-01] MEDS: ATORVASTATIN 20 MG TAB PO SCH (20:46)
[2017-01-01] MEDS: DOCUSATE SODIUM 50 MG/SENNA 8.6 MG TAB PO SCH (20:46)
[2017-01-01] MEDS: DONEPEZIL HCL 5 MG TAB PO SCH (20:46)
[2017-01-01] MEDS ORDERED: SODIUM CHLORIDE 0.9% FLUSH 10 ML FLUSH IV FLUSH SCH (21:00)
[2017-01-01 23:00] VITALS: BP 133/61; PULSE 81; RESP 16; TEMP 98.4; O2SAT 97
[2017-01-02 05:25] VITALS: BP 120/61; PULSE 71; RESP 16; TEMP 98.1; O2SAT 95
--- NOTE | 2017-01-02 07:04 | PD.ORT.PN ---
Subjective Subjective Remarks s/p fall at nursing facility patient demented and cannot offer any kind of history. lives at [facility] Objective Vitals Vital Signs Date Time Temp Pulse Resp B/P (MAP) Pulse Ox O2 Delivery O2 Flow Rate FiO2 01/01/17 23:00 98.4 81 16 133/61 (85) 97 01/01/17 20:40 97.2 115 16 158/73 (101) 95 01/01/17 16:00 98.8 104 19 136/71 (92) 94 01/01/17 11:25 01/01/17 11:19 100 17 136/76 (96) 95 Room Air 01/01/17 11:00 95 Room Air 01/01/17 08:18 17 95 Room Air 01/01/17 07:40 98.3 70 17 159/78 (105) 95 I/O 01/01/17 01/01/17 01/01/17 01/02/17 01/02/17 01/02/17 07:00 15:00 23:00 07:00 15:00 23:00 Intake Total 120 ml 60 ml Output Total 350 ml Balance -230 ml 60 ml Intake Oral 120 ml 60 ml Output Urine Total 350 ml # Voids 1 # Bowel Movements 0 0 Result Diagram: 01/01/17 0755 01/01/17 0755 Other Results Laboratory Tests Test 01/01/17 07:55 Prothromb Time International Ratio 0.9 RATIO Prothrombin Time 10.3 SEC (9.8-11.6) Imaging Last 24 hours Impressions Chest X-Ray 01/01/17 0750 Signed Impressions: Service Date/Time: Sunday, January 01, 2017 08:46 - CONCLUSION: No acute disease. Carrol Mills MD Objective Remarks RLE: Pain with motion of hip. nvi Assessment & Plan Problem List: (1) Fall ICD Codes: W19.XXXA - Unspecified fall, initial encounter Status: Acute (2) Closed displaced fracture of right femoral neck ICD Codes: S72.001A - Fracture of unspecified part of neck of right femur, initial encounter for closed fracture Status: Acute (3) Dementia ICD Codes: F03.90 - Unspecified dementia without behavioral disturbance Status: Chronic Qualifiers: Qualified Codes: F03.90 - Unspecified dementia without behavioral disturbance Assessment and Plan 1) Right Femoral Neck Fx -NWB -bedrest -potential surgery today -if not, then will plan for surgery tomorrow -obtain consent from family Evan Pham Jan 02, 2017 07:04
[2017-01-02] MEDS ORDERED: POVIDONE IODINE 5% (ANTISEPSIS KIT) 4 APPLICATIONS EACH NARE PRN (07:15)
[2017-01-02] MEDS ORDERED: INSULIN HUMAN REGULAR 1,000 UNITS/10 ML VIAL SQ PRN (07:15)
[2017-01-02] MEDS ORDERED: METOPROLOL TARTRATE 25 MG TAB PO PRN (07:15)
[2017-01-02] MEDS ORDERED: LACTATED RINGER'S 1000 ML IV PRN (07:15)
[2017-01-02] MEDS ORDERED: CHLORHEXIDINE GLUCONATE 2 % 1 PACK (2 CLOTHS) TOPICAL PRN (07:15)
[2017-01-02] MEDS ORDERED: SODIUM CHLORID 0.9% 500 ML IV PRN (07:15)
[2017-01-02 07:40] LABS: AUTOMATED NEUTROPHIL # 5.4 TH/MM3 (1.8-7.7); BASOPHIL % 0.1 % (0.0-2.0); EOSINOPHIL # 0.1 TH/MM3 (0-0.4); HEMATOCRIT 37.7 % (35.0-46.0); HEMO FLAGS DIFF FINAL; LYMPH % 15.2 % (9.0-44.0); LYMPHOCYTE # 1.1 TH/MM3 (1.0-4.8); MEAN CELL VOLUME 89.9 FL (80.0-100.0); MEAN CORPUSCULAR HEMOGLOBIN 30.2 PG (27.0-34.0); MEAN CORPUSCULAR HGB CONC 33.5 % (32.0-36.0); MONO % 6.3 % (0.0-8.0); NEUT % 77.4 % (16.0-70.0); PLATELET COUNT 224 TH/MM3 (150-450); RED BLOOD COUNT 4.19 MIL/MM3 (4.00-5.30); RED CELL DISTRIBUTION WIDTH 13.1 % (11.6-17.2)
[2017-01-02 07:44] LABS: PROTHROMBIN TIME - PATIENT 10.6 SEC (9.8-11.6)
[2017-01-02 08:00] VITALS: BP 105/62; PULSE 58; RESP 20; TEMP 96.4; O2SAT 95
[2017-01-02 08:07] LABS: BICARBONATE 26.5 MEQ/L (21.0-32.0); POTASSIUM 3.7 MEQ/L (3.5-5.1)
[2017-01-02] MEDS: QUEtiapine FUMARATE 25 MG TAB PO SCH ×2 (09:00→21:25)
[2017-01-02] MEDS: MEMANTINE HCL 10 MG TAB PO SCH ×2 (09:00→21:26)
[2017-01-02] MEDS: NYSTATIN SUSP 500,000 U/5 ML CUP SWISH-SWAL SCH ×4 (09:00→21:26)
[2017-01-02] MEDS: DOCUSATE SODIUM 50 MG/SENNA 8.6 MG TAB PO SCH ×2 (09:00→21:25)
--- NOTE | 2017-01-02 09:10 | HHI.PR ---
Subjective Remarks This is a pleasant 71 y/o Female with Severe Dementia and Hyperlipidemia, CAD, she was already seen [place] [facility] [place], her History was given by her Son Mr. Luciano Mercedes Phone number [phone], she is status post fall at her Shelter, found in ER with right femoral neck. also elevated Liver enzymes. Seen in her bedroom no complaint awaiting for procedure to be performed. no complaint. Objective Vital Signs Date Time Temp Pulse Resp B/P (MAP) Pulse Ox O2 Delivery O2 Flow Rate FiO2 01/02/17 07:48 Room Air 01/02/17 05:25 98.1 71 16 120/61 (80) 95 01/01/17 23:00 98.4 81 16 133/61 (85) 97 01/01/17 20:40 97.2 115 16 158/73 (101) 95 01/01/17 16:00 98.8 104 19 136/71 (92) 94 01/01/17 11:25 01/01/17 11:19 100 17 136/76 (96) 95 Room Air 01/01/17 11:00 95 Room Air I/O 01/01/17 01/01/17 01/01/17 01/02/17 01/02/17 01/02/17 07:00 15:00 23:00 07:00 15:00 23:00 Intake Total 120 ml 60 ml Output Total 350 ml Balance -230 ml 60 ml Intake Oral 120 ml 60 ml Output Urine Total 350 ml # Voids 1 # Bowel Movements 0 0 Result Diagram: 01/02/17 0604 01/02/17 0604 Imaging Last Impressions Chest X-Ray 01/01/17 0750 Signed Impressions: Service Date/Time: Sunday, January 01, 2017 08:46 - CONCLUSION: No acute disease. Carrol Mills MD Hip and Pelvis X-Ray 01/01/17 0000 Signed Impressions: Service Date/Time: Sunday, January 01, 2017 08:50 - CONCLUSION: Right femoral neck fracture. Carrol Mills MD Procedures None Other Results Laboratory Tests Test 01/01/17 07:55 01/01/17 10:30 01/02/17 06:04 Activated Partial Thromboplast Time 21.8 SEC Blood Urea Nitrogen 11 MG/DL 10 MG/DL Creatinine 0.79 MG/DL 0.70 MG/DL Random Glucose 109 MG/DL 102 MG/DL Total Protein 6.9 GM/DL Albumin 3.3 GM/DL Calcium Level 8.9 MG/DL 8.6 MG/DL Alkaline Phosphatase 180 U/L Aspartate Amino Transf (AST/SGOT) 112 U/L Alanine Aminotransferase (ALT/SGPT) 152 U/L Total Bilirubin 1.1 MG/DL Sodium Level 138 MEQ/L 141 MEQ/L Potassium Level 4.2 MEQ/L 3.7 MEQ/L Chloride Level 103 MEQ/L 106 MEQ/L Carbon Dioxide Level 25.9 MEQ/L 26.5 MEQ/L Urine Color YELLOW Urine Turbidity CLEAR Urine pH 6.0 Urine Specific [place] 1.011 Urine Protein NEG mg/dL Urine Glucose (UA) NEG mg/dL Urine Ketones NEG mg/dL Urine Occult Blood NEG Urine Nitrite NEG Urine Bilirubin NEG Urine Urobilinogen LESS THAN 2.0 MG/DL Urine Leukocyte Esterase NEG Urine RBC 1 /hpf Urine WBC LESS THAN 1 /hpf Urine Mucus FEW /lpf Microscopic Urinalysis Comment CATH-CULT NOT IND White Blood Count 7.0 TH/MM3 Red Blood Count 4.19 MIL/MM3 Hemoglobin 12.7 GM/DL Hematocrit 37.7 % Mean Corpuscular Volume 89.9 FL Mean Corpuscular Hemoglobin 30.2 PG Mean Corpuscular Hemoglobin Concent 33.5 % Red Cell Distribution Width 13.1 % Platelet Count 224 TH/MM3 Mean Platelet Volume 9.1 FL Neutrophils (%) (Auto) 77.4 % Lymphocytes (%) (Auto) 15.2 % Monocytes (%) (Auto) 6.3 % Eosinophils (%) (Auto) 1.0 % Basophils (%) (Auto) 0.1 % Neutrophils # (Auto) 5.4 TH/MM3 Lymphocytes # (Auto) 1.1 TH/MM3 Monocytes # (Auto) 0.4 TH/MM3 Eosinophils # (Auto) 0.1 TH/MM3 Basophils # (Auto) 0.0 TH/MM3 CBC Comment DIFF FINAL Differential Comment Prothrombin Time 10.6 SEC Prothromb Time International Ratio 1.0 RATIO Anion Gap 9 MEQ/L Estimat Glomerular Filtration Rate 82 ML/MIN Total Creatine Kinase 176 U/L Troponin I 0.03 NG/ML Objective Remarks GENERAL: This is a well-nourished, well-developed patient, in no apparent distress. SKIN: No rashes or lesions. Cool and dry. Ecchymoses noted on right lower leg, gauze bandage noted or left lower leg HEAD: Atraumatic. Normocephalic. EYES: Pupils equal round and reactive. Extraocular motions intact. No scleral icterus. No injection or drainage. ENT: Nose without bleeding or purulent drainage. Airway patent. Thrush noted on tongue. NECK: Trachea midline. No lymphadenopathy. Supple and nontender. CARDIOVASCULAR: Regular rate and rhythm without murmurs, gallops, or rubs. RESPIRATORY: Clear to auscultation. Breath sounds equal bilaterally. No wheezes , rales, or rhonchi. GASTROINTESTINAL: Abdomen soft, non-tender, nondistended. No hepato-splenomegaly , or guarding. MUSCULOSKELETAL: Extremities without clubbing, cyanosis, or edema. NEUROLOGICAL: Awake and alert. Cranial nerves II through XII intact. Motor and sensory grossly within normal limits. Five out of 5 muscle strength in all muscle groups; right lower extremity was not tested due to right femoral neck fracture.. Speech was clear and fluent. PSYCHIATRIC: Pt oriented to self. Stated she was in a town in [place]. Could not identify year. As orientation questions were asked, pt's pleasant demeanor lessened. Medications and IVs Current Medications Medications (Trade) Dose Ordered Sig/Aguilar Route Start Time Stop Time Status Last Admin (Lipitor) 20 mg HS PO 01/01/17 21:00 01/01/17 20:46 (Aricept) 10 mg HS PO 01/01/17 21:00 01/01/17 20:46 (SEROquel) 25 mg BID PO 01/01/17 21:00 01/01/17 20:46 (Zanaflex) 4 mg HS PRN PO 01/01/17 09:45 (Namenda) 10 mg BID PO 01/01/17 12:00 01/01/17 20:46 Sodium Chloride 1,000 ml @ 83 mls/hr Q12H3M IV 01/01/17 09:39 (NS Flush) 2 ml UNSCH PRN IV FLUSH 01/01/17 09:45 (NS Flush) 2 ml BID IV FLUSH 01/01/17 21:00 (Tylenol) 650 mg Q4H PRN PO 01/01/17 09:45 (Zofran Inj) 4 mg Q6H PRN IVP 01/01/17 09:45 (Narcan Inj) 0.4 mg UNSCH PRN IV 01/01/17 09:45 (Nieves-Colace) 1 tab BID PO 01/01/17 21:00 01/01/17 20:46 (Milk Of Magnesia Liq) 30 ml Q12H PRN PO 01/01/17 09:45 (Senokot) 17.2 mg Q12H PRN PO 01/01/17 09:45 (Dulcolax Supp) 10 mg DAILY PRN RECTAL 01/01/17 09:45 (Lactulose Liq) 30 ml DAILY PRN PO 01/01/17 09:45 (Mycostatin Liq) 5 ml QID SWISH-SWAL 01/01/17 13:00 (Ativan Inj) 0.5 mg Q6H PRN IV PUSH 01/01/17 16:00 01/01/17 21:54 (Morphine Inj) 1 mg Q4H PRN IV 01/01/17 18:00 01/02/17 05:13 Lactated Ringer's 1,000 ml @ 30 mls/hr Q24H PRN IV 01/02/17 07:15 01/05/17 07:14 Sodium Chloride 500 ml @ 30 mls/hr [id number] PRN IV 01/02/17 07:15 01/05/17 07:14 (Lopressor) 25 mg ASBESTOS MICROSCOPIST PRN PO 01/02/17 07:15 01/05/17 07:14 (Betadine 5% Antisepsis Kit) 1 applic ASBESTOS MICROSCOPIST PRN EACH NARE 01/02/17 07:15 01/05/17 07:14 (Chlorhexidine 2% Cloth) 3 pack ASBESTOS MICROSCOPIST PRN TOPICAL 01/02/17 07:15 01/05/17 07:14 (NovoLIN R INJ) See Protocol Table ... ASBESTOS MICROSCOPIST PRN SQ 01/02/17 07:15 01/05/17 07:14 A/P Assessment and Plan Mrs. Mercedes is 71 yo, with history of dementia and hyperlipidemia, and cardiovascular disease. She was [place] [facility] [place], for a UTI. Hip fracture Right femoral neck fracture -Admit to hospitalist service -Ortho has been consulted -Pain management PRN -PT consulted Dementia -Continue home regimen of memantine er 28 mg and donepezil 10 mg -Continue home regimen of Seroquel 25 mg bid Hyperlipidemia -atorvastatin 20 mg Transaminitis -Avoid hepatotoxic agents -monitor Thrush -oral Nystatin Diet: pt NPO in advance of possible surgery. DVT prophylaxis: SCDs patient awaiting for surgery, anticoagulation as per Orthopedic Surgery after procedure. Discussed Condition With Patient in the room and Nurse. Discharge Planning Once cleared by Orthopedic surgery. Nathan Horn MD Jan 02, 2017 09:10
[2017-01-02] MEDS: SODIUM CHLOR 0.9% 1000 ML INJ 1,000 ML IV SCH ×2 (09:45→21:48)
[2017-01-02 10:04] LABS: INDIRECT BILIRUBIN 0.7 MG/DL (0.0-0.8); TOTAL BILIRUBIN ADULT 0.9 MG/DL (0.2-1.0)
[2017-01-02] MEDS ORDERED: GENTAMICIN SULFATE 80 MG/2 ML VIAL ONE (11:24)
[2017-01-02] MEDS ORDERED: ceFAZolin INJ 1,000 MG VIAL ONE (11:24)
[2017-01-02] MEDS ORDERED: VANCOMYCIN HCL 1000 MG VIAL ONE (11:24)
[2017-01-02] MEDS ORDERED: SODIUM CHLOR 0.9% 250 ML INJ 250 ML ONE (11:25)
[2017-01-02] MEDS ORDERED: CLINDAMYCIN PHOS 600 MG/4 ML VIAL ONE (11:25)
[2017-01-02] MEDS ORDERED: FAMOTIDINE 20 MG/2 ML VIAL ONE (11:29)
[2017-01-02] MEDS ORDERED: ACETAMINOPHEN 1000 MG/100 ML 100 ML IV ONE (11:34)
[2017-01-02] MEDS ORDERED: ePHEDrine/NS 25 MG/5 ML SYR IV ONE (12:00)
[2017-01-02] MEDS ORDERED: NEOSTIGMINE 3 MG/3 ML SYR IV ONE (12:00)
[2017-01-02] MEDS ORDERED: PHENYLEPH/NS 1000 MCG/10 ML SYR IV ONE (12:00)
[2017-01-02] MEDS ORDERED: ONDANSETRON HCL 4 MG/2 ML VIAL IV PUSH ONE (12:00)
[2017-01-02] MEDS ORDERED: LACTATED RINGER'S 1000 ML INJ 1,000 ML IV ONE (12:00)
[2017-01-02] MEDS ORDERED: PROPOFOL 200 MG/20 ML AMP IV ONE (12:00)
--- NOTE | 2017-01-02 13:14 | PD.OP ---
cc: Yoni Carter Jr., MD Operative Report Date of Surgery: Jan 02, 2017 Preoperative Diagnosis: Right hip femoral neck fracture Postoperative Diagnosis: same Procedure: Right hip bipolar hemiarthroplasty Anesthesia: Gen. Surgeon: Yoni Carter Knobber(s): ROSARIO Tadeo The surgical procedure was assisted by my Advanced Registered Nurse Practitioner. My HOT FRAME TENDER presence was necessary throughout this case for the manipulation and positioning of the surgical extremity. My HOT FRAME TENDER was assisting me throughout the duration of this procedure. The skill set of an Advance Registered Nurse Practitioner was medically necessary to complete this procedure. During the surgical case, the surgical elastic knitter was working at the back table and the Advance Registered Nurse Practitioner was directly assisting me. Resident Surgeon: none Operation and Findings: ESTIMATED BLOOD LOSS: 100cc. DRAIN: None DETAILS OF PROCEDURE This patient was brought into the operating room and placed on the OR table. The patient was given anesthesia. The patient received IV antibiotics. The patient was then placed in lateral decubitus position. The right hip and leg were prepped with alcohol, followed by Hibiclens and draped in a usual sterile fashion. Clean air was used for this procedure. Time out procedure was performed. The procedure began with a 5 inch incision over the posterolateral hip. The subcutaneous tissue was dissected with the Bovie. The iliotibial band were split in line with fibers. The Charnley retractor was placed. The piriformis and external rotators were released from the femur and tagged with a #1 Vicryl suture. The capsule is now incised and tagged with #1 Vicryl. The femoral neck fracture was now visualized. A corkscrew was now used to remove the femoral head. The femoral head was sized and measured. Soft tissue was now protected. The hip skid was placed underneath the femoral neck. An oscillating saw was used to make a femoral neck cut. At this point attention was turned to preparation of the proximal femur. A box osteotome was used to remove the lateral cortex of the femoral neck. The T- handle reamer was used to open the femoral canal. Next, the canal was broached. A lateralizing reamer was used to help lateralize the prosthesis. At this point a trial head and neck were placed. The hip was reduced. The patient was found to have excellent stability with good range of motion. Trial components were removed. Soft tissue and bone were thoroughly irrigated. A Corail stem was now opened. The stem was now impacted into the proximal femur. Care was taken to keep appropriate anteversion. The head and neck were now impacted onto the stem. The hip was again reduced. The hip was found to have good range of motion and good stability. Leg lengths were clinically equal. The wound was thoroughly irrigated. The capsule, piriformis and iliotibial band were closed with #1 Vicryl. Subcutaneous tissue was closed with 3-0 Vicryl. The skin was closed with eulalia. A sterile dressing was applied with Primapore. The patient was placed into a knee immobilizer. The patient was awakened and transferred to the recovery room in stable condition. Needle and sponge counts were correct. IMPLANTS USED DePuy Corail size stem with size 9 std, 47 bipolar head + 1.5 mm head. POSTP-OP PLAN OF ACTIVITY Antibiotics: vancomycin Antiocoagulation: Lovenox Weight bearing status: wbat Dressing: Change daily, by RN starting postop day 7- reinforce only until then. Dispo: expected discharge 2-3 days.Dressing: Yoni Carter Jr., MD Jan 02, 2017 13:14
[2017-01-02] MEDS ORDERED: Post-op Orders (for Pharmacy) MISC XX ONE (13:15)
[2017-01-02] MEDS ORDERED: SODIUM CHLORIDE 0.9% FLUSH 10 ML FLUSH IV FLUSH PRN (13:15)
[2017-01-02] MEDS ORDERED: DO NOT ADM ANY ANTICOAGULANT DRUGS PRN (13:38)
[2017-01-02] MEDS ORDERED: MIDAZOLAM HCL 2 MG/2 ML VIAL ONE (13:51)
[2017-01-02] MEDS ORDERED: SENNOSIDES 8.6 MG TAB PO PRN (15:00)
[2017-01-02] MEDS ORDERED: LACTULOSE SYRUP 20 GM/30 ML CUP PO PRN (15:00)
[2017-01-02] MEDS ORDERED: PROMETHAZINE HCL 25 MG TAB PO PRN (15:00)
[2017-01-02] MEDS: KETOROLAC TROMETHAMINE 30 MG/ML (IVP) VIAL IVP SCH ×2 (15:00→21:25)
[2017-01-02] MEDS ORDERED: oxyCODONE/ACETAMINOPHEN 5 MG/325 MG TAB PO PRN ×2 (15:00)
[2017-01-02] MEDS ORDERED: MAGNESIUM HYDROXIDE SUSP 30 ML CUP PO PRN (15:00)
[2017-01-02] MEDS ORDERED: ZOLPIDEM TARTRATE 5 MG TAB PO PRN (15:00)
--- NOTE | 2017-01-02 15:59 | EKG ---
Date Performed: 01/01/2017 Time Performed: 09:22:14 PTAGE: 71 years EKG: SINUS BRADYCARDIA POSSIBLE LEFT ATRIAL ENLARGEMENT POSSIBLE RIGHT VENTRICULAR CONDUCTION DE LAY SEPTAL MYOCARDIAL INFARCTION MODERATE T-WAVE ABNORMALITY, CONSIDER ANTEROLATERAL ISCHEMIA ABNORMA L ECG Compared to PREVIOUS TRACING , previously seen precordial T-wave changes are slightly more prominent, consider ischemia. PREVIOUS TRACIN12/04/2016 11.16 DOCTOR: Stephen Umana Interpretating Date/Time 01/02/2017 15:57:45
[2017-01-02 16:00] VITALS: BP 145/94; PULSE 100; RESP 18; TEMP 98; O2SAT 95
[2017-01-02 16:15] VITALS: PULSE 107
--- NOTE | 2017-01-02 17:08 | RADRPT ---
EXAM DATE/TIME: 01/02/2017 14:25 [facility] COMPARISON: HIP RIGHT (AP&LAT 2/3VWS) W AP PELVIS, January 01, 2017, 8:50. INDICATIONS : Post op right hip MEDICAL HISTORY : right femoral neck fracture SURGICAL HISTORY : right hip ENCOUNTER: Subsequent ACUITY: 1 day PAIN SCORE: Non-responsive. LOCATION: Right hip FINDINGS: The patient is status post a total hip arthroplasty with a bipolar prosthesis. Prosthesis is well-sea michele. Alignment is anatomic. A fracture is not appreciated. CONCLUSION: Anatomic alignment. Feroz Torres MD FACR Feroz Torres MD FACR on January 02, 2017 at 17:06 Board Certified Radiologist. This report was verified electronically.
[2017-01-02] MEDS: CLINDAMYCIN INJ 600 MG in SODIUM CHLORIDE 0.9% INJ 100 ML IV SCH ×2 (18:22→23:23)
[2017-01-02 19:00] VITALS: BP 149/64; PULSE 101; RESP 17; TEMP 96.3; O2SAT 96
[2017-01-02 19:59] VITALS: PULSE 83
[2017-01-02] MEDS: SODIUM CHLORIDE 0.9% FLUSH 10 ML FLUSH IV FLUSH SCH (21:00)
[2017-01-02] MEDS: ATORVASTATIN 20 MG TAB PO SCH (21:25)
[2017-01-02] MEDS: DONEPEZIL HCL 5 MG TAB PO SCH (21:25)
[2017-01-03] VITALS (9 sets, daily range): BP systolic 94–151; BP diastolic 58–85; PULSE 61–108; RESP 16–17; TEMP 96–98; O2SAT 96–99
[2017-01-03] MEDS: ENOXAPARIN SODIUM 30 MG/0.3 ML SYRINGE SQ SCH ×2 (01:42→12:25)
[2017-01-03] MEDS: KETOROLAC TROMETHAMINE 30 MG/ML (IVP) VIAL IVP SCH ×4 (02:12→21:00)
[2017-01-03] MEDS: CLINDAMYCIN INJ 600 MG in SODIUM CHLORIDE 0.9% INJ 100 ML IV SCH ×2 (06:28→12:23)
[2017-01-03] MEDS: LORazepam 2 MG/ML VIAL IV PUSH PRN ×2 (06:28→13:34)
[2017-01-03] MEDS: SODIUM CHLORIDE 0.9% FLUSH 10 ML FLUSH IV FLUSH SCH ×2 (08:32→21:00)
[2017-01-03] MEDS: DOCUSATE SODIUM 50 MG/SENNA 8.6 MG TAB PO SCH ×2 (08:39→21:00)
[2017-01-03] MEDS: QUEtiapine FUMARATE 25 MG TAB PO SCH ×2 (08:39→21:00)
[2017-01-03] MEDS: MEMANTINE HCL 10 MG TAB PO SCH ×2 (08:39→21:00)
[2017-01-03] MEDS: NYSTATIN SUSP 500,000 U/5 ML CUP SWISH-SWAL SCH ×4 (08:40→21:00)
--- NOTE | 2017-01-03 09:05 | HHI.PR ---
Subjective Remarks This is a pleasant 71 y/o Female with Severe Dementia and Hyperlipidemia, CAD, she was already seen at [facility] for UTI back in November 2016, her History was given by her Son Mr. Luciano Mercedes Phone number [phone], she is status post fall [facility], found in ER with right femoral neck. also elevated Liver enzymes. With Diagnosis of Right Hip Femoral Neck fracture, status post Right hip Bipolar Hemiarthroplasty. 01/02/1701/03: Seen in her bedroom, confused as per Charge Nurse the patient was combative and asking for Medicine to hold the patient as per Guidelines is not recommended to give this patients Benzodiazepines or Haldol in high dosages due to the increase fall risk, asked her to place a sitter an has one in the room already also asked for the help of the Psychiatry specialist Objective Vital Signs Date Time Temp Pulse Resp B/P (MAP) Pulse Ox O2 Delivery O2 Flow Rate FiO2 01/03/17 04:00 98.0 72 17 112/59 (76) 99 01/03/17 01:51 65 01/03/17 01:21 108 01/03/17 00:00 97.0 100 16 94/65 (75) 96 01/02/17 19:59 83 01/02/17 19:00 96.3 101 17 149/64 (92) 96 01/02/17 16:15 107 01/02/17 16:00 98.0 100 18 145/94 (111) 95 01/02/17 15:35 Nasal Cannula 2.00 01/02/17 15:00 97.4 84 12 151/70 (97) 100 Nasal Cannula 2 01/02/17 14:45 69 12 150/74 (99) 100 Nasal Cannula 2 01/02/17 14:30 78 12 146/75 (98) 100 Nasal Cannula 2 01/02/17 14:15 74 12 144/71 (95) 100 Nasal Cannula 2 01/02/17 14:00 77 12 136/68 (90) 100 Nasal Cannula 4 01/02/17 13:45 97.4 81 12 128/64 (85) 100 Nasal Cannula 4 I/O 01/02/17 01/02/17 01/02/17 01/03/17 01/03/17 01/03/17 07:00 15:00 23:00 07:00 15:00 23:00 Intake Total 60 ml 1250 ml 480 ml Output Total 150 ml Balance 60 ml 1100 ml 480 ml Intake Oral 60 ml 480 ml Other 1250 ml Estimated Blood Loss 150 ml # Voids 1 0 # Bowel Movements 0 0 Result Diagram: 01/02/17 0604 01/02/17 0604 Imaging Last Impressions Hip and Pelvis X-Ray 01/02/17 0000 Signed Impressions: Service Date/Time: Monday, January 02, 2017 14:25 - CONCLUSION: Anatomic alignment. Feroz Torres MD Chest X-Ray 01/01/17 0750 Signed Impressions: Service Date/Time: Sunday, January 01, 2017 08:46 - CONCLUSION: No acute disease. Carrol Mills MD Procedures With Diagnosis of Right Hip Femoral Neck fracture, status post Right hip Bipolar Hemiarthroplasty. 01/02/17 Other Results Laboratory Tests Test 01/01/17 07:55 01/01/17 10:30 01/02/17 06:04 Activated Partial Thromboplast Time 21.8 SEC Urine Color YELLOW Urine Turbidity CLEAR Urine pH 6.0 Urine Specific [place] 1.011 Urine Protein NEG mg/dL Urine Glucose (UA) NEG mg/dL Urine Ketones NEG mg/dL Urine Occult Blood NEG Urine Nitrite NEG Urine Bilirubin NEG Urine Urobilinogen LESS THAN 2.0 MG/DL Urine Leukocyte Esterase NEG Urine RBC 1 /hpf Urine WBC LESS THAN 1 /hpf Urine Mucus FEW /lpf Microscopic Urinalysis Comment CATH-CULT NOT IND White Blood Count 7.0 TH/MM3 Red Blood Count 4.19 MIL/MM3 Hemoglobin 12.7 GM/DL Hematocrit 37.7 % Mean Corpuscular Volume 89.9 FL Mean Corpuscular Hemoglobin 30.2 PG Mean Corpuscular Hemoglobin Concent 33.5 % Red Cell Distribution Width 13.1 % Platelet Count 224 TH/MM3 Mean Platelet Volume 9.1 FL Neutrophils (%) (Auto) 77.4 % Lymphocytes (%) (Auto) 15.2 % Monocytes (%) (Auto) 6.3 % Eosinophils (%) (Auto) 1.0 % Basophils (%) (Auto) 0.1 % Neutrophils # (Auto) 5.4 TH/MM3 Lymphocytes # (Auto) 1.1 TH/MM3 Monocytes # (Auto) 0.4 TH/MM3 Eosinophils # (Auto) 0.1 TH/MM3 Basophils # (Auto) 0.0 TH/MM3 CBC Comment DIFF FINAL Differential Comment Prothrombin Time 10.6 SEC Prothromb Time International Ratio 1.0 RATIO Blood Urea Nitrogen 10 MG/DL Creatinine 0.70 MG/DL Random Glucose 102 MG/DL Calcium Level 8.6 MG/DL Sodium Level 141 MEQ/L Potassium Level 3.7 MEQ/L Chloride Level 106 MEQ/L Carbon Dioxide Level 26.5 MEQ/L Anion Gap 9 MEQ/L Estimat Glomerular Filtration Rate 82 ML/MIN Total Bilirubin 0.9 MG/DL Direct Bilirubin 0.2 MG/DL Indirect Bilirubin 0.7 MG/DL Aspartate Amino Transf (AST/SGOT) 53 U/L Alanine Aminotransferase (ALT/SGPT) 103 U/L Alkaline Phosphatase 166 U/L Total Creatine Kinase 176 U/L Troponin I 0.03 NG/ML Total Protein 6.4 GM/DL Albumin 2.9 GM/DL Objective Remarks GENERAL: This is a well-nourished, well-developed patient, in no apparent distress. SKIN: No rashes or lesions. Cool and dry. Ecchymoses noted on right lower leg, gauze bandage noted or left lower leg HEAD: Atraumatic. Normocephalic. EYES: Pupils equal round and reactive. Extraocular motions intact. No scleral icterus. No injection or drainage. ENT: Nose without bleeding or purulent drainage. Airway patent. Thrush noted on tongue. NECK: Trachea midline. No lymphadenopathy. Supple and nontender. CARDIOVASCULAR: Regular rate and rhythm without murmurs, gallops, or rubs. RESPIRATORY: Clear to auscultation. Breath sounds equal bilaterally. No wheezes , rales, or rhonchi. GASTROINTESTINAL: Abdomen soft, non-tender, nondistended. No hepato-splenomegaly , or guarding. MUSCULOSKELETAL: Extremities without clubbing, cyanosis, or edema. NEUROLOGICAL: Awake and alert. Cranial nerves II through XII intact. Motor and sensory grossly within normal limits. Five out of 5 muscle strength in all muscle groups; right lower extremity was not tested due to right femoral neck fracture.. Speech was clear and fluent. PSYCHIATRIC: Pt oriented to self. Stated she was in a town in [place]. Could not identify year. As orientation questions were asked, pt's pleasant demeanor lessened. Medications and IVs Current Medications Medications (Trade) Dose Ordered Sig/Aguilar Route Start Time Stop Time Status Last Admin (Lipitor) 20 mg HS PO 01/01/17 21:00 01/02/17 21:25 (Aricept) 10 mg HS PO 01/01/17 21:00 01/02/17 21:25 (SEROquel) 25 mg BID PO 01/01/17 21:00 01/03/17 08:39 (Zanaflex) 4 mg HS PRN PO 01/01/17 09:45 (Namenda) 10 mg BID PO 01/01/17 12:00 01/03/17 08:39 Sodium Chloride 1,000 ml @ 83 mls/hr Q12H3M IV 01/01/17 09:39 (Tylenol) 650 mg Q4H PRN PO 01/01/17 09:45 (Narcan Inj) 0.4 mg UNSCH PRN IV 01/01/17 09:45 (Mycostatin Liq) 5 ml QID SWISH-SWAL 01/01/17 13:00 01/03/17 08:40 (Ativan Inj) 0.5 mg Q6H PRN IV PUSH 01/01/17 16:00 01/03/17 06:28 Lactated Ringer's 1,000 ml @ 30 mls/hr Q24H PRN IV 01/02/17 07:15 01/05/17 07:14 Sodium Chloride 500 ml @ 30 mls/hr [id number] PRN IV 01/02/17 07:15 01/05/17 07:14 (Lopressor) 25 mg SALVAGE CUTTER PRN PO 01/02/17 07:15 01/05/17 07:14 (Betadine 5% Antisepsis Kit) 1 applic SALVAGE CUTTER PRN EACH NARE 01/02/17 07:15 01/05/17 07:14 (Chlorhexidine 2% Cloth) 3 pack SALVAGE CUTTER PRN TOPICAL 01/02/17 07:15 01/05/17 07:14 (NovoLIN R INJ) See Protocol Table ... SALVAGE CUTTER PRN SQ 01/02/17 07:15 01/05/17 07:14 (NS Flush) 2 ml UNSCH PRN IV FLUSH 01/02/17 13:15 (NS Flush) 2 ml BID IV FLUSH 01/02/17 21:00 Vancomycin HCl 1000 mg/Sodium Chloride 250 ml @ 250 mls/hr Q12H IV 01/03/17 00:00 01/03/17 12:59 01/03/17 00:00 Clindamycin Phosphate 600 mg/ Sodium Chloride 104 ml @ 200 mls/hr Q6H IV 01/02/17 18:00 01/03/17 12:32 01/03/17 06:28 (Lovenox Inj) 30 mg Q12H SQ 01/03/17 01:00 01/03/17 01:42 (Morphine Inj) 2 mg Q3H PRN IM 01/02/17 15:00 (Percocet 5-325 Mg) 1 tab Q4H PRN PO 01/02/17 15:00 (Percocet 5-325 Mg) 2 tab Q4H PRN PO 01/02/17 15:00 01/02/17 22:22 (Toradol Inj) 15 mg Q6H IVP 01/02/17 15:00 01/04/17 09:01 01/02/17 21:25 (Phenergan) 25 mg Q4H PRN PO 01/02/17 15:00 (Ambien) 5 mg HS PRN PO 01/02/17 15:00 (Nieves-Colace) 1 tab BID PO 01/02/17 21:00 01/03/17 08:39 (Milk Of Magnesia Liq) 30 ml Q12H PRN PO 01/02/17 15:00 (Senokot) 17.2 mg Q12H PRN PO 01/02/17 15:00 (Dulcolax Supp) 10 mg DAILY PRN RECTAL 01/02/17 14:00 (Lactulose Liq) 30 ml DAILY PRN PO 01/02/17 15:00 Miscellaneous Information ALL NURSING DEPARTME... UNSCH PRN .XX 01/02/17 13:38 01/03/17 13:37 A/P Assessment and Plan Mrs. Mercedes is 71 yo, with history of dementia and hyperlipidemia, and cardiovascular disease. She was treated at [facility] in late November, for a UTI. Hip fracture Right femoral neck fracture -AWith Diagnosis of Right Hip Femoral Neck fracture, status post Right hip Bipolar Hemiarthroplasty. 01/02/17 Dementia -Continue home regimen of memantine er 28 mg and donepezil 10 mg -Continue home regimen of Seroquel 25 mg bid Confused and combative, given Haldol low dose and Vest Restraint and sitter in the room. Psychiatry specialist consult Hyperlipidemia -atorvastatin 20 mg Transaminitis -Avoid hepatotoxic agents -monitor Thrush -oral Nystatin Diet: Regular diet DVT prophylaxis: Lovenox. Discussed Condition With Patient in the room and Nurse and Charge Nurse. Explained the guideline now is not recommended to give Benzodiazepines or Haldol , Restraints has to be limited due to that increase the risk of falls agreed with low dose of this medicines and vest restraint for now and remove as soon as possible Sitter in the room on my evaluation. Discharge Planning Once cleared by Orthopedic surgery. Nathan Horn MD Jan 03, 2017 09:05
[2017-01-03] MEDS: SODIUM CHLOR 0.9% 1000 ML INJ 1,000 ML IV SCH (09:51)
[2017-01-03] MEDS: HALOPERIDOL LACTATE 5 MG/ML AMP IM PRN (11:12)
[2017-01-03] MEDS: MORPHINE SULFATE 8 MG/ML INJ IM PRN ×2 (11:55→23:17)
--- NOTE | 2017-01-03 13:10 | EKG ---
Date Performed: 01/03/2017 Time Performed: 02:57:50 PTAGE: 71 years EKG: Sinus bradycardia. Prolonged QT interval Extensive T wave changes may be due to myocardial ischemia Abnormal ECG PREVIOUS TRACING : 01/01/2017 09.22 Compared to prior tracing no significant change DOCTOR: Imelda Prakash Interpretating Date/Time 01/03/2017 13:10:28
[2017-01-03] MEDS: VANCOMYCIN INJ 1,000 MG in SODIUM CHLOR 0.9% 250 ML INJ 250 ML IV SCH ×3 (13:17)
--- NOTE | 2017-01-03 17:27 | PD.ORT.PN ---
Subjective Subjective Remarks no issues. Objective Vitals Vital Signs Date Time Temp Pulse Resp B/P (MAP) Pulse Ox O2 Delivery O2 Flow Rate FiO2 01/03/17 12:15 10 01/03/17 12:00 96.6 78 17 134/61 (85) 96 01/03/17 08:00 96.0 78 17 151/85 (107) 96 01/03/17 04:00 98.0 72 17 112/59 (76) 99 01/03/17 01:51 65 01/03/17 01:21 108 01/03/17 00:00 97.0 100 16 94/65 (75) 96 01/02/17 19:59 83 01/02/17 19:00 96.3 101 17 149/64 (92) 96 I/O 01/02/17 01/02/17 01/02/17 01/03/17 01/03/17 01/03/17 07:00 15:00 23:00 07:00 15:00 23:00 Intake Total 60 ml 1250 ml 480 ml Output Total 150 ml Balance 60 ml 1100 ml 480 ml Intake Oral 60 ml 480 ml Other 1250 ml Estimated Blood Loss 150 ml # Voids 1 0 # Bowel Movements 0 0 Result Diagram: 01/02/17 0604 01/02/17 0604 Imaging Last 24 hours Impressions Chest X-Ray 01/01/17 0750 Signed Impressions: Service Date/Time: Sunday, January 01, 2017 08:46 - CONCLUSION: No acute disease. Carrol Mills MD Objective Remarks RLE: dressing CDI, SILT distally. CKS, abd pillow in place, grossly nvi. Assessment & Plan Problem List: (1) Fall ICD Codes: W19.XXXA - Unspecified fall, initial encounter Status: Acute (2) Closed displaced fracture of right femoral neck ICD Codes: S72.001A - Fracture of unspecified part of neck of right femur, initial encounter for closed fracture Status: Acute (3) Dementia ICD Codes: F03.90 - Unspecified dementia without behavioral disturbance Status: Chronic Qualifiers: Qualified Codes: F03.90 - Unspecified dementia without behavioral disturbance Assessment and Plan POD1- Right hip hemiHA -wbat -CKS at all times, abduction pillow in bed -dressing changes POD 7 -lovenox -dc to SNF Yoni Carter Jr., MD Jan 03, 2017 17:27
[2017-01-03] MEDS ORDERED: NORC5TAB PO (17:28)
--- NOTE | 2017-01-03 18:30 | PD.PSY.CON ---
Provisional Diagnosis Admission Date Jan 01, 2017 at 09:46 Wolf I. 1. Delirium due to [facility] 2. Dementia History of Present Illness Service Psychiatry Consult Requested By Dr. Onur Conte Reason for Consult Dementia/delirium Primary Care Physician Arian Jeffers MD HPI [id number] YOWF who presented from SNF s/p fall on 01/01. Found to have femoral neck fracture, now POD#1 surgical repair. Has a history of dementia. OP psychotropics include Aricept, Namenda and Seroquel per chart. Pt seen and examined. Chart reviewed. Case d/w RN. Patient has been intermittently restless per RN, pulling at lines. No physical aggression. Sleep poor. Ativan most helpful for controlling agitation per RN. On my exam, patient is in [facility] safety bed. She is presently calm. She is oriented to person only. She thinks we're somewhere in [place]. Registration is 3/3 , recall 0/3 at 3 min. Follows simple commands. Cannot spell world backward or do Vigilance A. Denies AVH. Denies SI/HI. Exam quite limited because of mental status, and I am unable to obtain any meaningful past psychiatric, family , chem dep or social history from this patient for this reason. Review of Systems ROS Limitations: Poor Historian Other Limited ROS due to mental status. Past Family Social History Coded Allergies: penicillin G (Verified Allergy, Severe, RASH, 01/01/17) procaine (Verified Allergy, Severe, RASH, 01/01/17) sulfacetamide (Verified Allergy, Severe, ITCHING, 01/01/17) sulfamethoxazole (Verified Allergy, Severe, HIVES, 01/01/17) trimethoprim (Verified Allergy, Severe, HIVES, 01/01/17) Past Medical History See EMR Active Scripts Hydrocodone-Acetaminophen ([place]) 5-325 mg Tab, 1 TAB PO Q4H Y for PAIN, #30 TAB 0 Refills Prov:Yoni Carter Jr., MD 01/03/17 Reported Medications Acetaminophen (Tylenol) 325 Mg Tab, 650 MG PO Q4H Y for PAIN, TAB 0 Refills 11/05/16 Quetiapine (Seroquel) 25 Mg Tab, 25 MG PO BID, #60 TAB 0 Refills 11/05/16 Lorazepam (Lorazepam) 0.5 Mg Tab, 0.5 MG PO Q8H Y for ANXIETY, TAB 0 Refills 11/05/16 Azelastine-Fluticasone Nasal [place] (Dymista Nasal [place]) 137-50 Mcg [place], 1 SPRAY EACH NARE BID for Allergies, #1 BOTTLE 0 Refills To each nostril. 11/05/16 Memantine Er (Namenda Xr) 28 Mg Caper, 28 MG PO DAILY for Alzheimer Disease, # 30 CAP 0 Refills 11/05/16 Tizanidine (Tizanidine) 4 Mg Cap, 4 MG PO HS Y for PRN, CAP 0 Refills 11/05/16 Atorvastatin (Atorvastatin) 20 Mg Tab, 20 MG PO HS for Cholesterol Management, # 30 TAB 0 Refills 11/05/16 Donepezil (Donepezil) 10 Mg Tab, 10 MG PO HS for Dementia, #30 TAB 0 Refills 11/05/16 Fluticasone Nasal [place] (Flonase Nasal [place]) 50 Mcg/Act [place], 50 MCG EACH NARE BID for Allergies, #1 BOTTLE 0 Refills 11/05/16 Loratadine (Claritin) 10 Mg Cap, 10 MG PO DAILY for Allergy Management, CAP 0 Refills 11/05/16 Current Medications Medications (Trade) Dose Ordered Sig/Aguilar Route Start Time Stop Time Status Last Admin (Lipitor) 20 mg HS PO 01/01/17 21:00 01/02/17 21:25 (Aricept) 10 mg HS PO 01/01/17 21:00 01/02/17 21:25 (SEROquel) 25 mg BID PO 01/01/17 21:00 01/03/17 08:39 (Zanaflex) 4 mg HS PRN PO 01/01/17 09:45 (Namenda) 10 mg BID PO 01/01/17 12:00 01/03/17 08:39 Sodium Chloride 1,000 ml @ 83 mls/hr Q12H3M IV 01/01/17 09:39 (Tylenol) 650 mg Q4H PRN PO 01/01/17 09:45 (Narcan Inj) 0.4 mg UNSCH PRN IV 01/01/17 09:45 (Mycostatin Liq) 5 ml QID SWISH-SWAL 01/01/17 13:00 01/03/17 16:45 (Ativan Inj) 0.5 mg Q6H PRN IV PUSH 01/01/17 16:00 01/03/17 13:34 Lactated Ringer's 1,000 ml @ 30 mls/hr Q24H PRN IV 01/02/17 07:15 01/05/17 07:14 Sodium Chloride 500 ml @ 30 mls/hr [id number] PRN IV 01/02/17 07:15 01/05/17 07:14 (Lopressor) 25 mg RELIGIOUS STUDIES PROFESSOR PRN PO 01/02/17 07:15 01/05/17 07:14 (Betadine 5% Antisepsis Kit) 1 applic RELIGIOUS STUDIES PROFESSOR PRN EACH NARE 01/02/17 07:15 01/05/17 07:14 (Chlorhexidine 2% Cloth) 3 pack RELIGIOUS STUDIES PROFESSOR PRN TOPICAL 01/02/17 07:15 01/05/17 07:14 (NovoLIN R INJ) See Protocol Table ... RELIGIOUS STUDIES PROFESSOR PRN SQ 01/02/17 07:15 01/05/17 07:14 (NS Flush) 2 ml UNSCH PRN IV FLUSH 01/02/17 13:15 (NS Flush) 2 ml BID IV FLUSH 01/02/17 21:00 (Lovenox Inj) 30 mg Q12H SQ 01/03/17 01:00 01/03/17 12:25 (Morphine Inj) 2 mg Q3H PRN IM 01/02/17 15:00 01/03/17 11:55 (Percocet 5-325 Mg) 1 tab Q4H PRN PO 01/02/17 15:00 (Percocet 5-325 Mg) 2 tab Q4H PRN PO 01/02/17 15:00 01/02/17 22:22 (Toradol Inj) 15 mg Q6H IVP 01/02/17 15:00 01/04/17 09:01 01/03/17 16:45 (Phenergan) 25 mg Q4H PRN PO 01/02/17 15:00 (Ambien) 5 mg HS PRN PO 01/02/17 15:00 (Nieves-Colace) 1 tab BID PO 01/02/17 21:00 01/03/17 08:39 (Milk Of Magnesia Liq) 30 ml Q12H PRN PO 01/02/17 15:00 (Senokot) 17.2 mg Q12H PRN PO 01/02/17 15:00 (Dulcolax Supp) 10 mg DAILY PRN RECTAL 01/02/17 14:00 (Lactulose Liq) 30 ml DAILY PRN PO 01/02/17 15:00 (Haldol Inj) 0.5 mg Q6H PRN IM 01/03/17 10:00 01/03/17 11:12 Family History Unable to obtain due to mental status Social History Unable to obtain due to mental status Patient's Strengths (min. 2) In a monitored setting. Retains some verbal fluency. Physical Exam PE completed by primary team. On my exam, no resting hand tremor, no cogwheeling. No motor abnormalities otherwise. Labs and vitals reviewed: Vital Signs Vital Signs Date Time Temp Pulse Resp B/P (MAP) Pulse Ox O2 Delivery O2 Flow Rate FiO2 01/03/17 17:51 16 01/03/17 16:00 96.4 61 119/58 (78) 96 01/02/17 15:35 Nasal Cannula 2.00 Lab Results Item Value Date Time White Blood Count 7.0 TH/MM3 01/02/17 0604 Hemoglobin 12.7 GM/DL 01/02/17 0604 Platelet Count 224 TH/MM3 01/02/17 0604 Sodium Level 141 MEQ/L 01/02/17 0604 Potassium Level 3.7 MEQ/L 01/02/17 0604 Chloride Level 106 MEQ/L 01/02/17 0604 Carbon Dioxide Level 26.5 MEQ/L 01/02/17 0604 Blood Urea Nitrogen 10 MG/DL 01/02/17 0604 Creatinine 0.70 MG/DL 01/02/17 0604 Aspartate Amino Transf (AST/SGOT) 53 U/L H 01/02/17 0604 Alanine Aminotransferase (ALT/SGPT) 103 U/L H 01/02/17 0604 Alkaline Phosphatase 166 U/L H 01/02/17 0604 Urinalysis bland on 01/01. No head imaging on file. EKG sinus antonietta with QTc 469ms Mental Status Examination Patient is in hospital gown. She is somewhat disheveled. She is awake and alert but oriented to person only. Unable to perform attention/concentration tasks. Memory poor as noted above. Motor exam as above. Speech within normal limits for rate, tone and volume. Unable to assess mood. Affect flat. Poverty of thought. Denies audiovisual hallucinations. Denies SI or HI. Insight and judgment poor. Assessment & Plan Problem List: (1) Delirium due to another medical condition ICD Codes: F05 - Delirium due to known physiological condition (2) Dementia ICD Codes: F03.90 - Unspecified dementia without behavioral disturbance Status: Chronic Assessment & Plan 71 WF h/o dementia s/p surgical repair of femoral fx. Now restless and pulling at lines. Suspect postoperative delirium overlying dementia. Rec: --Postop delirium most likely etiology, but would check TSH, B12, ammonia, RPR for reversible causes of delirium [Update: TSH, B12, ammonia unremarkable. RPR pending]. Check Head CT [read as normal]. Could obtain EEG but I suspect would just reveal generalized slowing. --Titrate Seroquel to 37.5mg BID to manage agitation. This could be slowly titrated if needed, but I would not much exceed 150mg/day in this elderly patient. If a larger dose is needed, consider administering in 3 divided doses (e.g. 37.5-50mg TID if needed). Check updated EKG after a few doses for QTc. Continue Aricept and Namenda as ordered. --Acutely restless now, Seroquel 12.5mg PO once. --QTc already borderline prolonged and so would try to limit use of Haldol PRN ( PO is preferred to IM, which is itself preferred to IV if this med is needed). --Limit use of benzos, anticholinergics, antihistamines and opiates except as needed for severe pain as all can worsen mental status --Frequent reorientation and early mobilization as able --Limit use of restraints and consider sitter for behavioral redirection --Aggressive management of any urinary retention/constipation --Assistive devices (eyeglasses if worn, e.g.) to bedside --Patient does not require inpatient psych at this time. Thank you for this consultation. Please call or page with questions. I will ask Dr. Perkins to follow up. Problem Qualifiers (1) Dementia: Qualified Codes: F03.90 - Unspecified dementia without behavioral disturbance Arian Jarvis MD Jan 03, 2017 18:30
[2017-01-03] MEDS ORDERED: QUEtiapine FUMARATE 25 MG TAB PO ONE (18:45)
[2017-01-03] MEDS ORDERED: PILL SPLITTER OTHER PRN (18:45)
[2017-01-03] MEDS: DONEPEZIL HCL 5 MG TAB PO SCH (21:00)
[2017-01-03] MEDS: ATORVASTATIN 20 MG TAB PO SCH (21:00)
--- NOTE | 2017-01-03 21:37 | RADRPT ---
EXAM DATE/TIME: 01/03/2017 21:19 [place] COMPARISON: CT BRAIN W/O CONTRAST, December 04, 2016, 13:45. INDICATIONS : Altered mental status. RADIATION DOSE: 52.13 CTDIvol (mGy) MEDICAL HISTORY : Dementia. Cardiovascular disease SURGICAL HISTORY : None. ENCOUNTER: Initial ACUITY: 1 day PAIN SCALE: 0/10 LOCATION: cranial TECHNIQUE: Multiple contiguous axial images were obtained of the head. Using automated exposure control and adj ustment of the mA and/or kV according to patient size, radiation dose was kept as low as reasonably a chievable to obtain optimal diagnostic quality images. DICOM format image data is available electro nically for review and comparison. FINDINGS: CEREBRUM: The ventricles are normal for age. Stable bilateral cortical atrophy. Stable old left lacunar infarc t. No evidence of midline shift, mass lesion, hemorrhage or acute infarction. No extra-axial fluid c ollections are seen. POSTERIOR FOSSA: The cerebellum and brainstem are intact. The 4th ventricle is midline. The cerebellopontine angle i s unremarkable. EXTRACRANIAL: The visualized portion of the orbits is intact. SKULL: The calvaria is intact. No evidence of skull fracture. CONCLUSION: 1. No acute intracranial hemorrhage. 2. Stable CT brain compared to the prior study. Frankie Sullivan MD on January 03, 2017 at 21:34 Board Certified Radiologist. This report was verified electronically.
[2017-01-04] VITALS (8 sets, daily range): BP systolic 116–157; BP diastolic 52–85; PULSE 60–103; RESP 16–18; TEMP 97–98.9; O2SAT 92–100
[2017-01-04] MEDS: ENOXAPARIN SODIUM 30 MG/0.3 ML SYRINGE SQ SCH ×2 (00:18→12:12)
[2017-01-04] MEDS: KETOROLAC TROMETHAMINE 30 MG/ML (IVP) VIAL IVP SCH (09:00)
[2017-01-04] MEDS: SODIUM CHLORIDE 0.9% FLUSH 10 ML FLUSH IV FLUSH SCH ×2 (09:00→22:08)
--- NOTE | 2017-01-04 09:07 | HHI.PR ---
Subjective Remarks This is a pleasant 71 y/o Female with Severe Dementia and Hyperlipidemia, CAD, she was already seen at [facility] for UTI back in November 2016, her History was given by her Son Mr. Luciano Mercedes Phone number [phone], she is status post fall at her [facility], found in ER with right femoral neck. also elevated Liver enzymes. With Diagnosis of Right Hip Femoral Neck fracture, status post Right hip Bipolar Hemiarthroplasty. 01/02/1701/03: Seen in her bedroom, confused as per Charge Nurse the patient was combative and asking for Medicine to hold the patient as per Guidelines is not recommended to give this patients Benzodiazepines or Haldol in high dosages due to the increase fall risk, asked her to place a sitter an has one in the room already also asked for the help of the Psychiatry specialist 01/04: patient seen in her bedroom by Psychiatry specialist doctor Arian Jarvis with Diagnosis of Delirium post surgical, recommended to rule out other causes for Delirium asked for TSH, B12, Ammonia level, RPR , CT Brain, Seroquel to 37.5 mg BID, ECG for QTc interval, continue Aricept and Namenda, one stress dose of Seroquel given for combativeness of the patient, recommended by Mouth Haldol if needed next best IM and last for IV if needed this medicine, do not use Benzodiazepines, Anticholinergics, and antihistamines. Sitter instead of restraints, aggressive management of Urinary retention or constipation. Appreciated Psychiatry specialist Assistance. Objective Vital Signs Date Time Temp Pulse Resp B/P (MAP) Pulse Ox O2 Delivery O2 Flow Rate FiO2 01/04/17 04:20 97.5 60 16 116/56 (76) 98 01/04/17 00:45 97.0 103 17 157/85 (109) 100 01/03/17 22:34 98 01/03/17 20:40 97.4 70 16 126/58 (80) 98 01/03/17 17:51 16 01/03/17 16:00 96.4 61 17 119/58 (78) 96 01/03/17 12:15 10 01/03/17 12:00 96.6 78 17 134/61 (85) 96 I/O 01/03/17 01/03/17 01/03/17 01/04/17 01/04/17 01/04/17 07:00 15:00 23:00 07:00 15:00 23:00 Intake Total 60 ml 120 ml Balance 60 ml 120 ml Intake Oral 60 ml 120 ml # Voids 1 2 # Bowel Movements 0 0 Result Diagram: 01/02/17 0604 01/02/17 0604 Imaging Last Impressions Head CT 01/03/17 0000 Signed Impressions: Service Date/Time: Tuesday, January 03, 2017 21:19 - CONCLUSION: 1. No acute intracranial hemorrhage. 2. Stable CT brain compared to the prior study. Frankie Sullivan MD Hip and Pelvis X-Ray 01/02/17 0000 Signed Impressions: Service Date/Time: Monday, January 02, 2017 14:25 - CONCLUSION: Anatomic alignment. Feroz Torres MD Chest X-Ray 01/01/17 0750 Signed Impressions: Service Date/Time: Sunday, January 01, 2017 08:46 - CONCLUSION: No acute disease. Carrol Mills MD Procedures With Diagnosis of Right Hip Femoral Neck fracture, status post Right hip Bipolar Hemiarthroplasty. 01/02/17 Other Results Laboratory Tests Test 01/01/17 07:55 01/01/17 10:30 01/02/17 06:04 Activated Partial Thromboplast Time 21.8 SEC Urine Color YELLOW Urine Turbidity CLEAR Urine pH 6.0 Urine Specific [place] 1.011 Urine Protein NEG mg/dL Urine Glucose (UA) NEG mg/dL Urine Ketones NEG mg/dL Urine Occult Blood NEG Urine Nitrite NEG Urine Bilirubin NEG Urine Urobilinogen LESS THAN 2.0 MG/DL Urine Leukocyte Esterase NEG Urine RBC 1 /hpf Urine WBC LESS THAN 1 /hpf Urine Mucus FEW /lpf Microscopic Urinalysis Comment CATH-CULT NOT IND White Blood Count 7.0 TH/MM3 Red Blood Count 4.19 MIL/MM3 Hemoglobin 12.7 GM/DL Hematocrit 37.7 % Mean Corpuscular Volume 89.9 FL Mean Corpuscular Hemoglobin 30.2 PG Mean Corpuscular Hemoglobin Concent 33.5 % Red Cell Distribution Width 13.1 % Platelet Count 224 TH/MM3 Mean Platelet Volume 9.1 FL Neutrophils (%) (Auto) 77.4 % Lymphocytes (%) (Auto) 15.2 % Monocytes (%) (Auto) 6.3 % Eosinophils (%) (Auto) 1.0 % Basophils (%) (Auto) 0.1 % Neutrophils # (Auto) 5.4 TH/MM3 Lymphocytes # (Auto) 1.1 TH/MM3 Monocytes # (Auto) 0.4 TH/MM3 Eosinophils # (Auto) 0.1 TH/MM3 Basophils # (Auto) 0.0 TH/MM3 CBC Comment DIFF FINAL Differential Comment Prothrombin Time 10.6 SEC Prothromb Time International Ratio 1.0 RATIO Blood Urea Nitrogen 10 MG/DL Creatinine 0.70 MG/DL Random Glucose 102 MG/DL Calcium Level 8.6 MG/DL Sodium Level 141 MEQ/L Potassium Level 3.7 MEQ/L Chloride Level 106 MEQ/L Carbon Dioxide Level 26.5 MEQ/L Anion Gap 9 MEQ/L Estimat Glomerular Filtration Rate 82 ML/MIN Total Bilirubin 0.9 MG/DL Direct Bilirubin 0.2 MG/DL Indirect Bilirubin 0.7 MG/DL Aspartate Amino Transf (AST/SGOT) 53 U/L Alanine Aminotransferase (ALT/SGPT) 103 U/L Alkaline Phosphatase 166 U/L Total Creatine Kinase 176 U/L Troponin I 0.03 NG/ML Total Protein 6.4 GM/DL Albumin 2.9 GM/DL Objective Remarks GENERAL: This is a well-nourished, well-developed patient, in no apparent distress. SKIN: No rashes or lesions. Cool and dry. Ecchymoses noted on right lower leg. HEAD: Atraumatic. Normocephalic. EYES: Pupils equal round and reactive. Extraocular motions intact. No scleral icterus. No injection or drainage. ENT: Nose without bleeding or purulent drainage. Airway patent. Thrush noted on tongue. NECK: Trachea midline. No lymphadenopathy. Supple and nontender. CARDIOVASCULAR: Regular rate and rhythm without murmurs, gallops, or rubs. RESPIRATORY: Clear to auscultation. Breath sounds equal bilaterally. No wheezes , rales, or rhonchi. GASTROINTESTINAL: Abdomen soft, non-tender, nondistended. No hepato-splenomegaly , or guarding. MUSCULOSKELETAL: Extremities without clubbing, cyanosis, or edema. NEUROLOGICAL: Awake and alert. Cranial nerves II through XII intact. PSYCHIATRIC: Alert but confused. continue with sitter in the room. Medications and IVs Current Medications Medications (Trade) Dose Ordered Sig/Aguilar Route Start Time Stop Time Status Last Admin (Lipitor) 20 mg HS PO 01/01/17 21:00 01/03/17 21:00 (Aricept) 10 mg HS PO 01/01/17 21:00 01/03/17 21:00 (Zanaflex) 4 mg HS PRN PO 01/01/17 09:45 (Namenda) 10 mg BID PO 01/01/17 12:00 01/03/17 21:00 Sodium Chloride 1,000 ml @ 83 mls/hr Q12H3M IV 01/01/17 09:39 (Tylenol) 650 mg Q4H PRN PO 01/01/17 09:45 (Narcan Inj) 0.4 mg UNSCH PRN IV 01/01/17 09:45 (Mycostatin Liq) 5 ml QID SWISH-SWAL 01/01/17 13:00 01/03/17 16:45 (Ativan Inj) 0.5 mg Q6H PRN IV PUSH 01/01/17 16:00 01/03/17 13:34 Lactated Ringer's 1,000 ml @ 30 mls/hr Q24H PRN IV 01/02/17 07:15 01/05/17 07:14 Sodium Chloride 500 ml @ 30 mls/hr [id number] PRN IV 01/02/17 07:15 01/05/17 07:14 (Lopressor) 25 mg DROP HAMMER SETTER UP PRN PO 01/02/17 07:15 01/05/17 07:14 (Betadine 5% Antisepsis Kit) 1 applic DROP HAMMER SETTER UP PRN EACH NARE 01/02/17 07:15 01/05/17 07:14 (Chlorhexidine 2% Cloth) 3 pack DROP HAMMER SETTER UP PRN TOPICAL 01/02/17 07:15 01/05/17 07:14 (NovoLIN R INJ) See Protocol Table ... DROP HAMMER SETTER UP PRN SQ 01/02/17 07:15 01/05/17 07:14 (NS Flush) 2 ml UNSCH PRN IV FLUSH 01/02/17 13:15 (NS Flush) 2 ml BID IV FLUSH 01/02/17 21:00 01/03/17 21:00 (Lovenox Inj) 30 mg Q12H SQ 01/03/17 01:00 01/04/17 00:18 (Morphine Inj) 2 mg Q3H PRN IM 01/02/17 15:00 01/03/17 23:17 (Percocet 5-325 Mg) 1 tab Q4H PRN PO 01/02/17 15:00 (Percocet 5-325 Mg) 2 tab Q4H PRN PO 01/02/17 15:00 01/02/17 22:22 (Toradol Inj) 15 mg Q6H IVP 01/02/17 15:00 01/04/17 09:01 01/03/17 21:00 (Phenergan) 25 mg Q4H PRN PO 01/02/17 15:00 (Ambien) 5 mg HS PRN PO 01/02/17 15:00 (Nieves-Colace) 1 tab BID PO 01/02/17 21:00 01/03/17 21:00 (Milk Of Magnesia Liq) 30 ml Q12H PRN PO 01/02/17 15:00 (Senokot) 17.2 mg Q12H PRN PO 01/02/17 15:00 (Dulcolax Supp) 10 mg DAILY PRN RECTAL 01/02/17 14:00 (Lactulose Liq) 30 ml DAILY PRN PO 01/02/17 15:00 (Haldol Inj) 0.5 mg Q6H PRN IM 01/03/17 10:00 01/03/17 11:12 (SEROquel) 37.5 mg BID PO 01/03/17 21:00 01/03/17 21:00 (Pill Splitter) 1 ea UNSCH PRN OTHER 01/03/17 18:45 A/P Assessment and Plan Mrs. Mercedes is 71 yo, with history of dementia and hyperlipidemia, and cardiovascular disease. She was treated at [facility] in late November, for a UTI. Hip fracture Right femoral neck fracture -With Diagnosis of Right Hip Femoral Neck fracture, status post Right hip Bipolar Hemiarthroplasty. 01/02/17 okay from Orthopedic Surgery to discharge to SNF. Not yet accepting facility in chart. Dementia/Delirium -Continue home regimen of memantine er 28 mg and donepezil 10 mg -Continue home regimen of Seroquel 25 mg bid Confused and combative, given Haldol low dose and Vest Restraint and sitter in the room. Psychiatry specialist consult Psychiatry specialist doctor Arian Jarvis with Diagnosis of Delirium post surgical, recommended to rule out other causes for Delirium asked for TSH, B12, Ammonia level, RPR , CT Brain, Seroquel to 37.5 mg BID, ECG for QTc interval, continue Aricept and Namenda, one stress dose of Seroquel given for combativeness of the patient, recommended by Mouth Haldol if needed next best IM and last for IV if needed this medicine, do not use Benzodiazepines, Anticholinergics, and antihistamines. Sitter instead of restraints, aggressive management of Urinary retention or constipation. Hyperlipidemia -atorvastatin 20 mg Transaminitis -Avoid hepatotoxic agents -monitor Thrush -oral Nystatin Diet: Regular diet DVT prophylaxis: Lovenox. Discussed Condition With Discussed with Patient and nurse in the room. stable Discharge Planning Okay to discharge from Orthopedic account review specialist standpoint. Nathan Horn MD Jan 04, 2017 09:07
[2017-01-04] MEDS: SODIUM CHLOR 0.9% 1000 ML INJ 1,000 ML IV SCH ×2 (09:57→22:00)
[2017-01-04] MEDS: MEMANTINE HCL 10 MG TAB PO SCH ×2 (09:58→22:07)
[2017-01-04] MEDS: DOCUSATE SODIUM 50 MG/SENNA 8.6 MG TAB PO SCH ×2 (09:59→22:06)
[2017-01-04] MEDS: NYSTATIN SUSP 500,000 U/5 ML CUP SWISH-SWAL SCH ×4 (09:59→22:07)
[2017-01-04] MEDS: QUEtiapine FUMARATE 25 MG TAB PO SCH ×2 (09:59→22:06)
[2017-01-04 10:55] LABS: AUTOMATED NEUTROPHIL # 7.5 TH/MM3 (1.8-7.7); BASOPHIL % 0.2 % (0.0-2.0); EOSINOPHIL # 0.1 TH/MM3 (0-0.4); EOSINOPHIL % 0.7 % (0.0-4.0); HEMO FLAGS DIFF FINAL; LYMPH % 13.8 % (9.0-44.0); LYMPHOCYTE # 1.3 TH/MM3 (1.0-4.8); MEAN CELL VOLUME 90.6 FL (80.0-100.0); MEAN CORPUSCULAR HEMOGLOBIN 30.3 PG (27.0-34.0); MEAN CORPUSCULAR HGB CONC 33.5 % (32.0-36.0); MONO % 5.5 % (0.0-8.0); NEUT % 79.8 % (16.0-70.0); PLATELET COUNT 271 TH/MM3 (150-450); RED BLOOD COUNT 3.65 MIL/MM3 (4.00-5.30); RED CELL DISTRIBUTION WIDTH 13.2 % (11.6-17.2); WHITE BLOOD COUNT 9.4 TH/MM3 (4.0-11.0)
[2017-01-04 11:14] LABS: ANION GAP 12 MEQ/L (5-15); AST (GOT) 50 U/L (15-37); BICARBONATE 22.1 MEQ/L (21.0-32.0); BLOOD UREA NITROGEN 13 MG/DL (7-18); CHLORIDE 108 MEQ/L (98-107); GLOMERULAR FILTRATION RATE 85 ML/MIN (>89); POTASSIUM 3.3 MEQ/L (3.5-5.1); SODIUM (NA) 142 MEQ/L (136-145)
[2017-01-04 11:39] LABS: ALKALINE PHOSPHATASE 118 U/L (45-117); ALT (GPT) 58 U/L (10-53); TOTAL BILIRUBIN ADULT 0.6 MG/DL (0.2-1.0)
[2017-01-04] MEDS: HALOPERIDOL LACTATE 5 MG/ML AMP IM PRN (12:12)
[2017-01-04] MEDS: ATORVASTATIN 20 MG TAB PO SCH (22:07)
[2017-01-04] MEDS: DONEPEZIL HCL 5 MG TAB PO SCH (22:07)
[2017-01-05] MEDS: ENOXAPARIN SODIUM 30 MG/0.3 ML SYRINGE SQ SCH ×2 (01:02→13:50)
[2017-01-05 03:16] VITALS: O2SAT 94
[2017-01-05 04:35] VITALS: BP 141/68; PULSE 84; RESP 16; TEMP 97.5; O2SAT 94
[2017-01-05 08:00] VITALS: BP 116/56; PULSE 72; RESP 16; TEMP 97; O2SAT 95
[2017-01-05] MEDS: SODIUM CHLORIDE 0.9% FLUSH 10 ML FLUSH IV FLUSH SCH ×2 (09:00→20:46)
[2017-01-05] MEDS: QUEtiapine FUMARATE 25 MG TAB PO SCH ×2 (09:00→20:39)
[2017-01-05] MEDS: MEMANTINE HCL 10 MG TAB PO SCH ×3 (09:00→20:39)
[2017-01-05] MEDS: NYSTATIN SUSP 500,000 U/5 ML CUP SWISH-SWAL SCH ×4 (09:00→20:40)
[2017-01-05] MEDS: DOCUSATE SODIUM 50 MG/SENNA 8.6 MG TAB PO SCH ×3 (09:00→20:39)
[2017-01-05] MEDS: SODIUM CHLOR 0.9% 1000 ML INJ 1,000 ML IV SCH ×2 (09:06→20:45)
--- NOTE | 2017-01-05 09:48 | HHI.PR ---
Subjective Remarks This is a pleasant 71 y/o Female with Severe Dementia and Hyperlipidemia, CAD, she was already seen at [facility] for UTI back in November 2016, her History was given by her Son Mr. Luciano Mercedes Phone number [phone], she is status post fall at her [facility], found in ER with right femoral neck. also elevated Liver enzymes. With Diagnosis of Right Hip Femoral Neck fracture, status post Right hip Bipolar Hemiarthroplasty. 01/02/1701/03: Seen in her bedroom, confused as per Charge Nurse the patient was combative and asking for Medicine to hold the patient as per Guidelines is not recommended to give this patients Benzodiazepines or Haldol in high dosages due to the increase fall risk, asked her to place a sitter an has one in the room already also asked for the help of the Psychiatry specialist 01/04: patient seen in her bedroom by Psychiatry specialist doctor Arian Jarvis with Diagnosis of Delirium post surgical, recommended to rule out other causes for Delirium asked for TSH, B12, Ammonia level, RPR , CT Brain, Seroquel to 37.5 mg BID, ECG for QTc interval, continue Aricept and Namenda, one stress dose of Seroquel given for combativeness of the patient, recommended by Mouth Haldol if needed next best IM and last for IV if needed this medicine, do not use Benzodiazepines, Anticholinergics, and antihistamines. Sitter instead of restraints, aggressive management of Urinary retention or constipation. Appreciated Psychiatry specialist Assistance. 01/05: Seen in her bedroom discussed with tool and die manager and Charge nurse, she will need to be off special bed to avoid falls and also Haldol at this time discontinued Haldol, seen with charge nurse in the room, stable no complaint. non aggressive. Objective Vital Signs Date Time Temp Pulse Resp B/P (MAP) Pulse Ox O2 Delivery O2 Flow Rate FiO2 01/05/17 04:35 97.5 84 16 141/68 (92) 94 01/05/17 03:16 94 01/04/17 23:50 97.8 88 16 134/74 (94) 94 01/04/17 21:00 98.3 97 16 138/63 (88) 95 01/04/17 16:00 98.9 80 18 123/52 (75) 100 01/04/17 16:00 97.7 88 17 119/69 (86) 98 01/04/17 12:00 97.0 64 17 145/69 (94) 94 01/04/17 11:30 97 I/O 01/04/17 01/04/17 01/04/17 01/05/17 01/05/17 01/05/17 06:59 14:59 22:59 06:59 14:59 22:59 Intake Total 320 ml 240 ml 240 ml Balance 320 ml 240 ml 240 ml Intake Oral 320 ml 240 ml 240 ml # Voids 4 2 3 # Bowel Movements 0 0 0 Result Diagram: 01/04/17 1021 01/04/17 1021 Imaging Last Impressions Head CT 01/03/17 0000 Signed Impressions: Service Date/Time: Tuesday, January 03, 2017 21:19 - CONCLUSION: 1. No acute intracranial hemorrhage. 2. Stable CT brain compared to the prior study. Frankie Sullivan MD Hip and Pelvis X-Ray 01/02/17 0000 Signed Impressions: Service Date/Time: Monday, January 02, 2017 14:25 - CONCLUSION: Anatomic alignment. Feroz Torres MD Chest X-Ray 01/01/17 0750 Signed Impressions: Service Date/Time: Sunday, January 01, 2017 08:46 - CONCLUSION: No acute disease. Carrol Mills MD Procedures With Diagnosis of Right Hip Femoral Neck fracture, status post Right hip Bipolar Hemiarthroplasty. 01/02/17 Other Results Laboratory Tests Test 01/01/17 07:55 01/01/17 10:30 01/02/17 06:04 01/04/17 10:21 Activated Partial Thromboplast Time 21.8 SEC Urine Color YELLOW Urine Turbidity CLEAR Urine pH 6.0 Urine Specific [place] 1.011 Urine Protein NEG mg/dL Urine Glucose (UA) NEG mg/dL Urine Ketones NEG mg/dL Urine Occult Blood NEG Urine Nitrite NEG Urine Bilirubin NEG Urine Urobilinogen LESS THAN 2.0 MG/DL Urine Leukocyte Esterase NEG Urine RBC 1 /hpf Urine WBC LESS THAN 1 /hpf Urine Mucus FEW /lpf Microscopic Urinalysis Comment CATH-CULT NOT IND Prothrombin Time 10.6 SEC Prothromb Time International Ratio 1.0 RATIO Direct Bilirubin 0.2 MG/DL Indirect Bilirubin 0.7 MG/DL Total Creatine Kinase 176 U/L Troponin I 0.03 NG/ML White Blood Count 9.4 TH/MM3 Red Blood Count 3.65 MIL/MM3 Hemoglobin 11.1 GM/DL Hematocrit 33.0 % Mean Corpuscular Volume 90.6 FL Mean Corpuscular Hemoglobin 30.3 PG Mean Corpuscular Hemoglobin Concent 33.5 % Red Cell Distribution Width 13.2 % Platelet Count 271 TH/MM3 Mean Platelet Volume 8.6 FL Neutrophils (%) (Auto) 79.8 % Lymphocytes (%) (Auto) 13.8 % Monocytes (%) (Auto) 5.5 % Eosinophils (%) (Auto) 0.7 % Basophils (%) (Auto) 0.2 % Neutrophils # (Auto) 7.5 TH/MM3 Lymphocytes # (Auto) 1.3 TH/MM3 Monocytes # (Auto) 0.5 TH/MM3 Eosinophils # (Auto) 0.1 TH/MM3 Basophils # (Auto) 0.0 TH/MM3 CBC Comment DIFF FINAL Differential Comment Blood Urea Nitrogen 13 MG/DL Creatinine 0.68 MG/DL Random Glucose 108 MG/DL Total Protein 5.9 GM/DL Albumin 2.8 GM/DL Calcium Level 8.6 MG/DL Alkaline Phosphatase 118 U/L Aspartate Amino Transf (AST/SGOT) 50 U/L Alanine Aminotransferase (ALT/SGPT) 58 U/L Total Bilirubin 0.6 MG/DL Sodium Level 142 MEQ/L Potassium Level 3.3 MEQ/L Chloride Level 108 MEQ/L Carbon Dioxide Level 22.1 MEQ/L Anion Gap 12 MEQ/L Estimat Glomerular Filtration Rate 85 ML/MIN Ammonia 17 MCMOL/L Vitamin B12 Level 500 PG/ML Thyroid Stimulating Hormone 3rd Gen 1.410 uIU/ML Objective Remarks GENERAL: This is a well-nourished, well-developed patient, in no apparent distress. SKIN: No rashes or lesions. Cool and dry. Ecchymoses noted on right lower leg. HEAD: Atraumatic. Normocephalic. EYES: Pupils equal round and reactive. Extraocular motions intact. No scleral icterus. No injection or drainage. ENT: Nose without bleeding or purulent drainage. Airway patent. Thrush noted on tongue. NECK: Trachea midline. No lymphadenopathy. Supple and nontender. CARDIOVASCULAR: Regular rate and rhythm without murmurs, gallops, or rubs. RESPIRATORY: Clear to auscultation. Breath sounds equal bilaterally. No wheezes , rales, or rhonchi. GASTROINTESTINAL: Abdomen soft, non-tender, nondistended. No hepato-splenomegaly , or guarding. MUSCULOSKELETAL: Extremities without clubbing, cyanosis, or edema. NEUROLOGICAL: Awake and alert. Cranial nerves II through XII intact. PSYCHIATRIC: Alert better today. Medications and IVs Current Medications Medications (Trade) Dose Ordered Sig/Aguilar Route Start Time Stop Time Status Last Admin (Lipitor) 20 mg HS PO 01/01/17 21:00 01/04/17 22:07 (Aricept) 10 mg HS PO 01/01/17 21:00 01/04/17 22:07 (Zanaflex) 4 mg HS PRN PO 01/01/17 09:45 (Namenda) 10 mg BID PO 01/01/17 12:00 01/05/17 09:06 Sodium Chloride 1,000 ml @ 83 mls/hr Q12H3M IV 01/01/17 09:39 (Tylenol) 650 mg Q4H PRN PO 01/01/17 09:45 (Narcan Inj) 0.4 mg UNSCH PRN IV 01/01/17 09:45 (Mycostatin Liq) 5 ml QID SWISH-SWAL 01/01/17 13:00 01/04/17 22:07 (NS Flush) 2 ml UNSCH PRN IV FLUSH 01/02/17 13:15 (NS Flush) 2 ml BID IV FLUSH 01/02/17 21:00 01/04/17 22:08 (Lovenox Inj) 30 mg Q12H SQ 01/03/17 01:00 01/05/17 01:02 (Morphine Inj) 2 mg Q3H PRN IM 01/02/17 15:00 01/03/17 23:17 (Percocet 5-325 Mg) 1 tab Q4H PRN PO 01/02/17 15:00 01/05/17 04:44 (Percocet 5-325 Mg) 2 tab Q4H PRN PO 01/02/17 15:00 01/02/17 22:22 (Phenergan) 25 mg Q4H PRN PO 01/02/17 15:00 (Ambien) 5 mg HS PRN PO 01/02/17 15:00 (Nieves-Colace) 1 tab BID PO 01/02/17 21:00 01/05/17 09:06 (Milk Of Magnesia Liq) 30 ml Q12H PRN PO 01/02/17 15:00 (Senokot) 17.2 mg Q12H PRN PO 01/02/17 15:00 (Dulcolax Supp) 10 mg DAILY PRN RECTAL 01/02/17 14:00 (Lactulose Liq) 30 ml DAILY PRN PO 01/02/17 15:00 (Haldol Inj) 0.5 mg Q6H PRN IM 01/03/17 10:00 01/04/17 12:12 (SEROquel) 37.5 mg BID PO 01/03/17 21:00 01/04/17 22:06 (Pill Splitter) 1 ea UNSCH PRN OTHER 01/03/17 18:45 A/P Assessment and Plan Mrs. Mercedes is 71 yo, with history of dementia and hyperlipidemia, and cardiovascular disease. She was treated at [facility] in late November, for a UTI. Hip fracture Right femoral neck fracture -With Diagnosis of Right Hip Femoral Neck fracture, status post Right hip Bipolar Hemiarthroplasty. 01/02/17 okay from Orthopedic Surgery to discharge to SNF. Not yet accepting facility in chart. Dementia/Delirium -Continue home regimen of memantine er 28 mg and donepezil 10 mg -Continue home regimen of Seroquel 25 mg bid Confused and combative, given Haldol low dose and Vest Restraint and sitter in the room. Psychiatry specialist consult Psychiatry specialist doctor Arian Jarvis with Diagnosis of Delirium post surgical, recommended to rule out other causes for Delirium asked for TSH, B12, Ammonia level, RPR , CT Brain, Seroquel to 37.5 mg BID, ECG for QTc interval, continue Aricept and Namenda, one stress dose of Seroquel given for combativeness of the patient, recommended by Mouth Haldol if needed next best IM and last for IV if needed this medicine, do not use Benzodiazepines, Anticholinergics, and antihistamines. Sitter instead of restraints, aggressive management of Urinary retention or constipation. discontinued Haldol. Hyperlipidemia -atorvastatin 20 mg Transaminitis -Avoid hepatotoxic agents -monitor Thrush -oral Nystatin Diet: Regular diet DVT prophylaxis: Lovenox. Discussed Condition With Discussed with Patient and nurse and charge nurse. okay to discharge from medicine standpoint. Discharge Planning Okay to discharge from Orthopedic television specialist standpoint. and Medicine, but has not been accepted due to that she is receiving Haldol medicine discontinued and also discussed with Charge nurse to remove the bed for the patient and place a regular Hospital bed. Nathan Horn MD Jan 05, 2017 09:48
[2017-01-05 12:00] VITALS: BP 129/59; PULSE 72; RESP 16; TEMP 96; O2SAT 94
[2017-01-05 16:00] VITALS: BP 136/65; PULSE 84; RESP 16; TEMP 97.6; O2SAT 96
[2017-01-05 19:00] VITALS: BP 136/69; PULSE 85; RESP 16; TEMP 98; O2SAT 96
[2017-01-05] MEDS: DONEPEZIL HCL 5 MG TAB PO SCH (20:39)
[2017-01-05] MEDS: ATORVASTATIN 20 MG TAB PO SCH (20:40)
[2017-01-06] VITALS: BP 158/80; PULSE 86; RESP 16; TEMP 98; O2SAT 96
[2017-01-06] MEDS: ENOXAPARIN SODIUM 30 MG/0.3 ML SYRINGE SQ SCH ×2 (00:16→14:39)
[2017-01-06 07:39] LABS: POTASSIUM 3.3 MEQ/L (3.5-5.1)
[2017-01-06 08:00] VITALS: BP 115/62; PULSE 97; RESP 18; TEMP 97.7; O2SAT 96
[2017-01-06] MEDS: SODIUM CHLORIDE 0.9% FLUSH 10 ML FLUSH IV FLUSH SCH ×2 (09:00→22:23)
[2017-01-06] MEDS: SODIUM CHLOR 0.9% 1000 ML INJ 1,000 ML IV SCH ×2 (10:09→22:12)
[2017-01-06] MEDS: MEMANTINE HCL 10 MG TAB PO SCH ×2 (10:18→22:10)
[2017-01-06] MEDS: DOCUSATE SODIUM 50 MG/SENNA 8.6 MG TAB PO SCH ×2 (10:18→22:11)
[2017-01-06] MEDS: QUEtiapine FUMARATE 25 MG TAB PO SCH ×2 (10:18→22:11)
[2017-01-06] MEDS: NYSTATIN SUSP 500,000 U/5 ML CUP SWISH-SWAL SCH ×4 (10:18→22:09)
--- NOTE | 2017-01-06 10:24 | HHI.PR ---
Subjective Remarks This is a pleasant 71 y/o Female with Severe Dementia and Hyperlipidemia, CAD, she was already seen [place] [facility] [place] back in November 2016, her History was given by her Son Mr. Luciano Mercedes Phone number [phone], she is status post fall at her Long[facility]Term, found in ER with right femoral neck. also elevated Liver enzymes. With Diagnosis of Right Hip Femoral Neck fracture, status post Right hip Bipolar Hemiarthroplasty. 01/02/1701/03: Seen in her bedroom, confused as per Charge Nurse the patient was combative and asking for Medicine to hold the patient as per Guidelines is not recommended to give this patients Benzodiazepines or Haldol in high dosages due to the increase fall risk, asked her to place a sitter an has one in the room already also asked for the help of the Psychiatry specialist 01/04: patient seen in her bedroom by Psychiatry specialist doctor Arian Jarvis with Diagnosis of Delirium post surgical, recommended to rule out other causes for Delirium asked for TSH, B12, Ammonia level, RPR , CT Brain, Seroquel to 37.5 mg BID, ECG for QTc interval, continue Aricept and Namenda, one stress dose of Seroquel given for combativeness of the patient, recommended by Mouth Haldol if needed next best IM and last for IV if needed this medicine, do not use Benzodiazepines, Anticholinergics, and antihistamines. Sitter instead of restraints, aggressive management of Urinary retention or constipation. Appreciated Psychiatry specialist Assistance. 01/05: Seen in her bedroom discussed with hydrogen power plant manager and Charge nurse, she will need to be off special bed to avoid falls and also Haldol at this time discontinued Haldol, seen with charge nurse in the room, stable no complaint. non aggressive. 01/06: Patient seen in her bedroom stable improving general condition, discussed with nurse and residential case manager already Orthopedic Surgery signed off he case and will follow as outpatient, discussed with her Son Mr. Daren Wolf, to the phone number [phone] and he agrees with discharge to SNF today will continue medicines given in the Hospital as per Psychiatry specialist. Objective Vital Signs Date Time Temp Pulse Resp B/P (MAP) Pulse Ox O2 Delivery O2 Flow Rate FiO2 01/06/17 00:00 98.0 86 16 158/80 (106) 96 01/05/17 21:23 21 01/05/17 19:00 98.0 85 16 136/69 (91) 96 01/05/17 16:00 97.6 84 16 136/65 (88) 96 01/05/17 12:00 96.0 72 16 129/59 (82) 94 I/O 01/05/17 01/05/17 01/05/17 01/06/17 01/06/17 01/06/17 07:00 15:00 23:00 07:00 15:00 23:00 Intake Total 240 ml 240 ml 50 ml Output Total 425 ml Balance 240 ml 240 ml -375 ml Intake Oral 240 ml 240 ml 50 ml Output Urine Total 425 ml Bladder Scan Volume Amount 471 ml # Voids 3 0 # Bowel Movements 0 0 Result Diagram: 01/04/17 1021 01/06/17 0700 Imaging Last Impressions Head CT 01/03/17 0000 Signed Impressions: Service Date/Time: Tuesday, January 03, 2017 21:19 - CONCLUSION: 1. No acute intracranial hemorrhage. 2. Stable CT brain compared to the prior study. Frankie Sullivan MD Hip and Pelvis X-Ray 01/02/17 0000 Signed Impressions: Service Date/Time: Monday, January 02, 2017 14:25 - CONCLUSION: Anatomic alignment. Feroz Torres MD Chest X-Ray 01/01/17 0750 Signed Impressions: Service Date/Time: Sunday, January 01, 2017 08:46 - CONCLUSION: No acute disease. Carrol Mills MD Procedures With Diagnosis of Right Hip Femoral Neck fracture, status post Right hip Bipolar Hemiarthroplasty. 01/02/17 Other Results Laboratory Tests Test 01/01/17 07:55 01/01/17 10:30 01/02/17 06:04 01/04/17 10:21 Activated Partial Thromboplast Time 21.8 SEC Urine Color YELLOW Urine Turbidity CLEAR Urine pH 6.0 Urine Specific [place] 1.011 Urine Protein NEG mg/dL Urine Glucose (UA) NEG mg/dL Urine Ketones NEG mg/dL Urine Occult Blood NEG Urine Nitrite NEG Urine Bilirubin NEG Urine Urobilinogen LESS THAN 2.0 MG/DL Urine Leukocyte Esterase NEG Urine RBC 1 /hpf Urine WBC LESS THAN 1 /hpf Urine Mucus FEW /lpf Microscopic Urinalysis Comment CATH-CULT NOT IND Prothrombin Time 10.6 SEC Prothromb Time International Ratio 1.0 RATIO Direct Bilirubin 0.2 MG/DL Indirect Bilirubin 0.7 MG/DL Total Creatine Kinase 176 U/L Troponin I 0.03 NG/ML White Blood Count 9.4 TH/MM3 Red Blood Count 3.65 MIL/MM3 Hemoglobin 11.1 GM/DL Hematocrit 33.0 % Mean Corpuscular Volume 90.6 FL Mean Corpuscular Hemoglobin 30.3 PG Mean Corpuscular Hemoglobin Concent 33.5 % Red Cell Distribution Width 13.2 % Platelet Count 271 TH/MM3 Mean Platelet Volume 8.6 FL Neutrophils (%) (Auto) 79.8 % Lymphocytes (%) (Auto) 13.8 % Monocytes (%) (Auto) 5.5 % Eosinophils (%) (Auto) 0.7 % Basophils (%) (Auto) 0.2 % Neutrophils # (Auto) 7.5 TH/MM3 Lymphocytes # (Auto) 1.3 TH/MM3 Monocytes # (Auto) 0.5 TH/MM3 Eosinophils # (Auto) 0.1 TH/MM3 Basophils # (Auto) 0.0 TH/MM3 CBC Comment DIFF FINAL Differential Comment Blood Urea Nitrogen 13 MG/DL Creatinine 0.68 MG/DL Random Glucose 108 MG/DL Total Protein 5.9 GM/DL Albumin 2.8 GM/DL Calcium Level 8.6 MG/DL Alkaline Phosphatase 118 U/L Aspartate Amino Transf (AST/SGOT) 50 U/L Alanine Aminotransferase (ALT/SGPT) 58 U/L Total Bilirubin 0.6 MG/DL Sodium Level 142 MEQ/L Potassium Level 3.3 MEQ/L Chloride Level 108 MEQ/L Carbon Dioxide Level 22.1 MEQ/L Anion Gap 12 MEQ/L Estimat Glomerular Filtration Rate 85 ML/MIN Ammonia 17 MCMOL/L Vitamin B12 Level 500 PG/ML Thyroid Stimulating Hormone 3rd Gen 1.410 uIU/ML Rapid Plasma Reagin NON-REACTIVE Test 01/06/17 07:00 Potassium Level 3.3 MEQ/L Magnesium Level 2.0 MG/DL Objective Remarks GENERAL: This is a well-nourished, well-developed patient, in no apparent distress. SKIN: No rashes or lesions. Cool and dry. Ecchymoses noted on right lower leg. HEAD: Atraumatic. Normocephalic. EYES: Pupils equal round and reactive. Extraocular motions intact. No scleral icterus. No injection or drainage. ENT: Nose without bleeding or purulent drainage. Airway patent. Thrush noted on tongue. NECK: Trachea midline. No lymphadenopathy. Supple and nontender. CARDIOVASCULAR: Regular rate and rhythm without murmurs, gallops, or rubs. RESPIRATORY: Clear to auscultation. Breath sounds equal bilaterally. No wheezes , rales, or rhonchi. GASTROINTESTINAL: Abdomen soft, non-tender, nondistended. No hepato-splenomegaly , or guarding. MUSCULOSKELETAL: Surgical wound Clean. NEUROLOGICAL: Awake and alert. Cranial nerves II through XII intact. PSYCHIATRIC: Alert better today. Medications and IVs Current Medications Medications (Trade) Dose Ordered Sig/Aguilar Route Start Time Stop Time Status Last Admin (Lipitor) 20 mg HS PO 01/01/17 21:00 01/05/17 20:40 (Aricept) 10 mg HS PO 01/01/17 21:00 01/05/17 20:39 (Zanaflex) 4 mg HS PRN PO 01/01/17 09:45 (Namenda) 10 mg BID PO 01/01/17 12:00 01/06/17 10:18 Sodium Chloride 1,000 ml @ 83 mls/hr Q12H3M IV 01/01/17 09:39 (Tylenol) 650 mg Q4H PRN PO 01/01/17 09:45 (Narcan Inj) 0.4 mg UNSCH PRN IV 01/01/17 09:45 (Mycostatin Liq) 5 ml QID SWISH-SWAL 01/01/17 13:00 01/06/17 10:18 (NS Flush) 2 ml UNSCH PRN IV FLUSH 01/02/17 13:15 (NS Flush) 2 ml BID IV FLUSH 01/02/17 21:00 01/04/17 22:08 (Lovenox Inj) 30 mg Q12H SQ 01/03/17 01:00 01/06/17 00:16 (Morphine Inj) 2 mg Q3H PRN IM 01/02/17 15:00 01/03/17 23:17 (Percocet 5-325 Mg) 1 tab Q4H PRN PO 01/02/17 15:00 01/05/17 04:44 (Percocet 5-325 Mg) 2 tab Q4H PRN PO 01/02/17 15:00 01/02/17 22:22 (Phenergan) 25 mg Q4H PRN PO 01/02/17 15:00 (Ambien) 5 mg HS PRN PO 01/02/17 15:00 (Nieves-Colace) 1 tab BID PO 01/02/17 21:00 01/06/17 10:18 (Milk Of Magnesia Liq) 30 ml Q12H PRN PO 01/02/17 15:00 (Senokot) 17.2 mg Q12H PRN PO 01/02/17 15:00 (Dulcolax Supp) 10 mg DAILY PRN RECTAL 01/02/17 14:00 (Lactulose Liq) 30 ml DAILY PRN PO 01/02/17 15:00 (SEROquel) 37.5 mg BID PO 01/03/17 21:00 01/06/17 10:18 (Pill Splitter) 1 ea UNSCH PRN OTHER 01/03/17 18:45 A/P Assessment and Plan Mrs. Mercedes is 71 yo, with history of dementia and hyperlipidemia, and cardiovascular disease. She was treated at [facility] [place] late [place], for a UTI. Hip fracture Right femoral neck fracture -With Diagnosis of Right Hip Femoral Neck fracture, status post Right hip Bipolar Hemiarthroplasty. 01/02/17 okay from Orthopedic Surgery to discharge to SNF. Dementia/Delirium -Continue home regimen of memantine er 28 mg and donepezil 10 mg -Continue home regimen of Seroquel 25 mg bid Confused and combative, given Haldol low dose and Vest Restraint and sitter in the room. Psychiatry specialist consult Psychiatry specialist doctor Arian Jarvis with Diagnosis of Delirium post surgical, recommended to rule out other causes for Delirium asked for TSH, B12, Ammonia level, RPR , CT Brain, Seroquel to 37.5 mg BID, ECG for QTc interval, continue Aricept and Namenda, one stress dose of Seroquel given for combativeness of the patient, recommended by Mouth Haldol if needed next best IM and last for IV if needed this medicine, do not use Benzodiazepines, Anticholinergics, and antihistamines. Sitter instead of restraints, aggressive management of Urinary retention or constipation. discontinued Haldol. Hyperlipidemia -atorvastatin 20 mg Transaminitis -Avoid hepatotoxic agents -monitor Thrush -oral Nystatin Diet: Regular diet DVT prophylaxis: Lovenox. Discussed Condition With Discussed with Patient and nurse and charge nurse. okay to discharge from medicine standpoint. Discussed with Patient's Son Mr. Luciano Mercedes all questions answered to the best of my abilities. Discharge Planning Discharge to SNF today. Nathan Horn MD Jan 06, 2017 10:24
[2017-01-06] MEDS ORDERED: POTA-163 PO ×2 (11:48→11:49)
[2017-01-06] MEDS ORDERED: QUET1TAB7 PO (11:48)
--- NOTE | 2017-01-06 11:51 | HHI.DS ---
Discharge Summary Admission Date Jan 01, 2017 at 09:46 Discharge Date: Jan 06, 2017 Admitting Diagnosis right hip fracture, dementia (1) Fall ICD Code: W19.XXXA - Unspecified fall, initial encounter Diagnosis: Principal Status: Acute (2) Closed displaced fracture of right femoral neck ICD Code: S72.001A - Fracture of unspecified part of neck of right femur, initial encounter for closed fracture Diagnosis: Principal Status: Acute (3) Elevated transaminase level ICD Code: R74.0 - Nonspecific elevation of levels of transaminase and lactic acid dehydrogenase [LDH] Diagnosis: Principal Status: Acute (4) Dementia ICD Code: F03.90 - Unspecified dementia without behavioral disturbance Diagnosis: Principal Status: Chronic Procedures With Diagnosis of Right Hip Femoral Neck fracture, status post Right hip Bipolar Hemiarthroplasty. 01/02/17 Brief History - From Admission Written by Jose Marion PA-C, acting as scribe for Dr. Steven Mohr on 01/01/17 at 10:15. Mrs. Mercedes is 71 yo, with history of dementia and hyperlipidemia, and cardiovascular disease. She was treated at [facility] [place], for a UTI. Pt' s dementia is significant that she is unable to provide reliable history. Per pt 's son (Luciano Mercedes, contacted at [phone]) "other than the dementia, my mother is fine as a horse." Pt is unable to explain why she is here and denies pain or discomfort. Per the ED record, pt suffered a fall this morning and was brought from her fdc to [facility] [place] as a result of pain and inability to walk after the fall. Imaging indicates pt has a fracture of her right femoral neck. Labs indicated elevated liver enzymes (AST 112, ALT 152, Alk phos 180) and bilirubin was 1.1. A 10 point ROS could not be adequately completed due to pt's impaired memory. Per ED physician, orthopedics has been contacted and saw Mrs. Mercedes in the ED. CBC/BMP: 01/04/17 1021 01/06/17 0700 Significant Findings Laboratory Tests Test 01/04/17 10:21 01/06/17 07:00 Red Blood Count 3.65 MIL/MM3 (4.00-5.30) Hemoglobin 11.1 GM/DL (11.6-15.3) Hematocrit 33.0 % (35.0-46.0) Neutrophils (%) (Auto) 79.8 % (16.0-70.0) Random Glucose 108 MG/DL (74-106) Total Protein 5.9 GM/DL (6.4-8.2) Albumin 2.8 GM/DL (3.4-5.0) Alkaline Phosphatase 118 U/L (45-117) Aspartate Amino Transf (AST/SGOT) 50 U/L (15-37) Alanine Aminotransferase (ALT/SGPT) 58 U/L (10-53) Potassium Level 3.3 MEQ/L (3.5-5.1) 3.3 MEQ/L (3.5-5.1) Chloride Level 108 MEQ/L (98-107) Estimat Glomerular Filtration Rate 85 ML/MIN (>89) Imaging Last Impressions Head CT 01/03/17 0000 Signed Impressions: Service Date/Time: Tuesday, January 03, 2017 21:19 - CONCLUSION: 1. No acute intracranial hemorrhage. 2. Stable CT brain compared to the prior study. Frankie Sullivan MD Hip and Pelvis X-Ray 01/02/17 0000 Signed Impressions: Service Date/Time: Monday, January 02, 2017 14:25 - CONCLUSION: Anatomic alignment. Feroz Torres MD Chest X-Ray 01/01/17 0750 Signed Impressions: Service Date/Time: Sunday, January 01, 2017 08:46 - CONCLUSION: No acute disease. Carrol Mills MD PE at Discharge GENERAL: This is a well-nourished, well-developed patient, in no apparent distress. SKIN: No rashes or lesions. Cool and dry. Ecchymoses noted on right lower leg. HEAD: Atraumatic. Normocephalic. EYES: Pupils equal round and reactive. Extraocular motions intact. No scleral icterus. No injection or drainage. ENT: Nose without bleeding or purulent drainage. Airway patent. Thrush noted on tongue. NECK: Trachea midline. No lymphadenopathy. Supple and nontender. CARDIOVASCULAR: Regular rate and rhythm without murmurs, gallops, or rubs. RESPIRATORY: Clear to auscultation. Breath sounds equal bilaterally. No wheezes , rales, or rhonchi. GASTROINTESTINAL: Abdomen soft, non-tender, nondistended. No hepato-splenomegaly , or guarding. MUSCULOSKELETAL: Surgical wound Clean. NEUROLOGICAL: Awake and alert. Cranial nerves II through XII intact. PSYCHIATRIC: Alert better today. Hospital Course This is a pleasant 71 y/o Female with Severe Dementia and Hyperlipidemia, CAD, she was already seen at [facility] [place] back in November 2016, her History was given by her Son Mr. Luciano Mercedes Phone number [phone], she is status post fall at her [facility]ust[facility], found in ER with right femoral neck. also elevated Liver enzymes. With Diagnosis of Right Hip Femoral Neck fracture, status post Right hip Bipolar Hemiarthroplasty. 01/02/1701/03: Seen in her bedroom, confused as per Charge Nurse the patient was combative and asking for Medicine to hold the patient as per Guidelines is not recommended to give this patients Benzodiazepines or Haldol in high dosages due to the increase fall risk, asked her to place a sitter an has one in the room already also asked for the help of the Psychiatry specialist 01/04: patient seen in her bedroom by Psychiatry specialist doctor Arian Jarvis with Diagnosis of Delirium post surgical, recommended to rule out other causes for Delirium asked for TSH, B12, Ammonia level, RPR , CT Brain, Seroquel to 37.5 mg BID, ECG for QTc interval, continue Aricept and Namenda, one stress dose of Seroquel given for combativeness of the patient, recommended by Mouth Haldol if needed next best IM and last for IV if needed this medicine, do not use Benzodiazepines, Anticholinergics, and antihistamines. Sitter instead of restraints, aggressive management of Urinary retention or constipation. Appreciated Psychiatry specialist Assistance. 01/05: Seen in her bedroom discussed with commodity manager and Charge nurse, she will need to be off special bed to avoid falls and also Haldol at this time discontinued Haldol, seen with charge nurse in the room, stable no complaint. non aggressive. 01/06: Patient seen in her bedroom stable improving general condition, discussed with nurse and upper caser already Orthopedic Surgery signed off he case and will follow as outpatient, discussed with her Son Mr. Daren Wolf, to the phone number [phone] and he agrees with discharge to SNF today will continue medicines given in the Hospital as per Psychiatry specialist. Assessment and Plan Mrs. Mercedes is 71 yo, with history of dementia and hyperlipidemia, and cardiovascular disease. She was treated at [facility] [place] in late November, for a UTI. Hip fracture Right femoral neck fracture -With Diagnosis of Right Hip Femoral Neck fracture, status post Right hip Bipolar Hemiarthroplasty. 01/02/17 okay from Orthopedic Surgery to discharge to SNF. Dementia/Delirium -Continue home regimen of memantine er 28 mg and donepezil 10 mg -Continue home regimen of Seroquel 25 mg bid Confused and combative, given Haldol low dose and Vest Restraint and sitter in the room. Psychiatry specialist consult Psychiatry specialist doctor Arian Jarvis with Diagnosis of Delirium post surgical, recommended to rule out other causes for Delirium asked for TSH, B12, Ammonia level, RPR , CT Brain, Seroquel to 37.5 mg BID, ECG for QTc interval, continue Aricept and Namenda, one stress dose of Seroquel given for combativeness of the patient, recommended by Mouth Haldol if needed next best IM and last for IV if needed this medicine, do not use Benzodiazepines, Anticholinergics, and antihistamines. Sitter instead of restraints, aggressive management of Urinary retention or constipation. discontinued Haldol. Hyperlipidemia -atorvastatin 20 mg Transaminitis -Avoid hepatotoxic agents -monitor Thrush -oral Nystatin Diet: Regular diet DVT prophylaxis: Lovenox. Discussed Condition With Discussed with Patient and nurse and charge nurse. okay to discharge from medicine standpoint. Discussed with Patient's Son Mr. Luciano Mercedes all questions answered to the best of my abilities. Discharge Planning Discharge to SNF today. Pt Condition on Discharge: Fair Discharge Disposition: Discharge to SNF Discharge Time: > 30 minutes Discharge Instructions DIET: Follow Instructions for: Heart Healthy Diet Activities you can perform: Weight Bearing as Alexandra Nathan oHrn MD Jan 06, 2017 11:51
[2017-01-06 12:00] VITALS: BP 110/66; PULSE 100; RESP 18; TEMP 97.9; O2SAT 100
[2017-01-06] MEDS ORDERED: POTASSIUM CHLORIDE 20 MEQ CONTROLLED RELEASE TAB PO ONE ×2 (12:00→14:00)
[2017-01-06 13:20] VITALS: O2SAT 99
[2017-01-06] MEDS: BISACODYL 10 MG SUPP RECTAL PRN (18:41)
[2017-01-06 20:40] VITALS: BP 146/88; PULSE 93; RESP 18; TEMP 98.6; O2SAT 98
[2017-01-06] MEDS: DONEPEZIL HCL 5 MG TAB PO SCH (22:10)
[2017-01-06] MEDS: ATORVASTATIN 20 MG TAB PO SCH (22:11)
[2017-01-07 00:30] VITALS: BP 136/68; PULSE 82; RESP 18; TEMP 98.2; O2SAT 97
[2017-01-07] MEDS: ENOXAPARIN SODIUM 30 MG/0.3 ML SYRINGE SQ SCH ×2 (01:07→13:00)
--- NOTE | 2017-01-07 06:55 | PD.ORT.PN ---
Subjective Subjective Remarks Resting comfortably in bed. Dementia. Stable with no new complaints Objective Vitals Vital Signs Date Time Temp Pulse Resp B/P (MAP) Pulse Ox O2 Delivery O2 Flow Rate FiO2 01/07/17 00:30 98.2 82 18 136/68 (90) 97 01/06/17 20:40 98.6 93 18 146/88 (107) 98 01/06/17 13:20 99 01/06/17 12:00 97.9 100 18 110/66 (81) 100 01/06/17 08:00 97.7 97 18 115/62 (79) 96 I/O 01/06/17 01/06/17 01/06/17 01/07/17 01/07/17 01/07/17 06:59 14:59 22:59 06:59 14:59 22:59 Intake Total 50 ml 200 ml 240 ml Output Total 425 ml Balance -375 ml 200 ml 240 ml Intake Oral 50 ml 200 ml 240 ml Output Urine Total 425 ml Bladder Scan Volume Amount 471 ml # Voids 1 0 # Bowel Movements 0 0 Result Diagram: 01/04/17 1021 01/06/17 0700 Imaging Last 24 hours Impressions Chest X-Ray 01/01/17 0750 Signed Impressions: Service Date/Time: Sunday, January 01, 2017 08:46 - CONCLUSION: No acute disease. Carrol Mills MD Objective Remarks RLE: dressing CDI, SILT distally. CKS, abd pillow in place, grossly nvi. Assessment & Plan Problem List: (1) Fall ICD Codes: W19.XXXA - Unspecified fall, initial encounter Status: Acute (2) Closed displaced fracture of right femoral neck ICD Codes: S72.001A - Fracture of unspecified part of neck of right femur, initial encounter for closed fracture Status: Acute (3) Dementia ICD Codes: F03.90 - Unspecified dementia without behavioral disturbance Status: Chronic Qualifiers: Qualified Codes: F03.90 - Unspecified dementia without behavioral disturbance Assessment and Plan POD5- Right hip hemiHA -wbat -CKS at all times, abduction pillow in bed -dressing changes POD 7 -lovenox -dc to SNF today If continuing to have bladder retention, straight catheter once if necessary Pardeep Pearson Jr. Jan 07, 2017 06:55
[2017-01-07 08:30] VITALS: BP 98/59; PULSE 79; RESP 16; TEMP 98.1; O2SAT 97
[2017-01-07] MEDS: SODIUM CHLORIDE 0.9% FLUSH 10 ML FLUSH IV FLUSH SCH (09:00)
[2017-01-07] MEDS: MEMANTINE HCL 10 MG TAB PO SCH (09:20)
[2017-01-07] MEDS: BISACODYL 10 MG SUPP RECTAL PRN (09:20)
[2017-01-07] MEDS: NYSTATIN SUSP 500,000 U/5 ML CUP SWISH-SWAL SCH ×2 (09:20→13:00)
[2017-01-07] MEDS: QUEtiapine FUMARATE 25 MG TAB PO SCH (09:20)
[2017-01-07] MEDS: DOCUSATE SODIUM 50 MG/SENNA 8.6 MG TAB PO SCH (09:20)
[2017-01-07] MEDS ORDERED: LACTULOSE SYRUP 20 GM/30 ML CUP PO ONE (09:30)
[2017-01-07] MEDS: SODIUM CHLOR 0.9% 1000 ML INJ 1,000 ML IV SCH (09:51)
[2017-01-07 11:38] VITALS: BP 108/71; PULSE 83; RESP 16; TEMP 96.2; O2SAT 96
== END 2017-01-07 16:06 | DRG 470 ==
LOC: NEPE 07:35 → NEDA 09:46 → N06B 11:57 → N06A 21:03
PROVIDERS: ADMIT Internal Medicine; ATTEND Internal Medicine
PROC: 0SRR0JA Replacement of Right Hip Joint, Femoral Surface with Synthetic Substitute, Uncemented, Open Approach (ICD-10-PCS; principal; 2017-01-02 11:55)
DX: S72.001A Fracture of unspecified part of neck of right femur, initial encounter for closed fracture (principal); F03.90 Unspecified dementia, unspecified severity, without behavioral disturbance, psychotic disturbance, mood disturbance, and anxiety; F05 Delirium due to known physiological condition; Z78.1 Physical restraint status; B37.9 Candidiasis, unspecified; R33.9 Retention of urine, unspecified; I25.10 Atherosclerotic heart disease of native coronary artery without angina pectoris; E78.5 Hyperlipidemia, unspecified; F41.9 Anxiety disorder, unspecified; W18.30XA Fall on same level, unspecified, initial encounter; Y92.129 Unspecified place in nursing home as the place of occurrence of the external cause
CPT/HCPCS: 70450; 71010; 72050; 72072; 72110; 72170; 73502; 80048; 80053; 80076; 81001; 82140; 82550; 82607; 83735; 84132; 84443; 84484; 85025; 85610; 85730; 86592; 86850; 86900; 86901; 93005; 94150; 96374; 96375; C1776; J0131; J0690; J1580; J1630; J1650; J1885; J2060; J2250; J2270; J2370; J2405; J2710; J3010; J3370; J7050; J7120; L1830

== ENCOUNTER 2017-07-23 06:18 | Emergency (ER) | payer MEDICARE, BC ==
[~2017-07-23 06:18] MED LIST changes: -CLAR10CA3 PO; -CODE30TA2 PO; -LORA-373 PO; -NITR1SUB3 SL; +NORC5TAB PO; +POTA-163 PO; +QUET1TAB7 PO; -SERO25TA PO
[2017-07-23 06:29] VITALS: BP 139/84; PULSE 64; RESP 18; TEMP 98.1; O2SAT 100; O2SAT 64
[2017-07-23] MEDS ORDERED: LORA0.5T PO (06:49)
[2017-07-23] MEDS ORDERED: CLAR10CA3 PO (06:49)
[2017-07-23] MEDS ORDERED: SERO25TA PO (06:49)
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
[2017-07-23] MEDS ORDERED: QUEtiapine FUMARATE 25 MG TAB PO ONE (08:15)
[2017-07-23 09:06] LABS: AUTOMATED NEUTROPHIL # 5.5 TH/MM3 (1.8-7.7); BASOPHIL # 0.1 TH/MM3 (0-0.2); BASOPHIL % 1.1 % (0.0-2.0); EOSINOPHIL # 0.1 TH/MM3 (0-0.4); EOSINOPHIL % 1.2 % (0.0-4.0); HEMATOCRIT 40.1 % (35.0-46.0); HEMOGLOBIN 13.3 GM/DL (11.6-15.3); LYMPH % 19.3 % (9.0-44.0); LYMPHOCYTE # 1.5 TH/MM3 (1.0-4.8); MEAN CELL VOLUME 91.1 FL (80.0-100.0); MEAN CORPUSCULAR HEMOGLOBIN 30.2 PG (27.0-34.0); MEAN CORPUSCULAR HGB CONC 33.1 % (32.0-36.0); MEAN PLATELET VOLUME 8.4 FL (7.0-11.0); MONO % 6.7 % (0.0-8.0); MONOCYTE # 0.5 TH/MM3 (0-0.9); NEUT % 71.7 % (16.0-70.0); PLATELET COUNT 258 TH/MM3 (150-450); WHITE BLOOD COUNT 7.7 TH/MM3 (4.0-11.0)
[2017-07-23 09:21] LABS: BICARBONATE 24.1 MEQ/L (21.0-32.0); CALCIUM 9.2 MG/DL (8.5-10.1); CREATININE 0.78 MG/DL (0.50-1.00)
--- NOTE | 2017-07-23 09:42 | PD ---
Physical Exam Date Seen by Provider: Jul 23, 2017 Time Seen by Provider: 07:45 Narrative This is a 71-year-old female who presents from the care home with agitation. This is a patient who has a history of dementia who is actually at a dementia unit in a care home. The patient was apparently sent here because she was found wandering about and going into other peoples rooms. Report was that she had not been given her Seroquel. Report was that they did not have a nurse that could administer this. Apparently the facility called the police who [place] acted her and she was brought here. The patient is unable to give any history. The patient is nontoxic appearing. There are no complaints at the time of my examination. Data Data Last Documented VS Vital Signs Date Time Temp Pulse Resp B/P (MAP) Pulse Ox O2 Delivery O2 Flow Rate FiO2 07/23/17 06:29 98.1 64 18 139/84 (102) 100 Orders Orders Quetiapine (Seroquel) (07/23/17 08:15) Complete Blood Count With Diff (07/23/17 08:18) Basic Metabolic Panel (Bmp) (07/23/17 08:18) Ed Discharge Order (07/23/17 09:54) Labs Laboratory Tests Test 07/23/17 07:10 White Blood Count 7.7 TH/MM3 Red Blood Count 4.40 MIL/MM3 Hemoglobin 13.3 GM/DL Hematocrit 40.1 % Mean Corpuscular Volume 91.1 FL Mean Corpuscular Hemoglobin 30.2 PG Mean Corpuscular Hemoglobin Concent 33.1 % Red Cell Distribution Width 14.0 % Platelet Count 258 TH/MM3 Mean Platelet Volume 8.4 FL Neutrophils (%) (Auto) 71.7 % Lymphocytes (%) (Auto) 19.3 % Monocytes (%) (Auto) 6.7 % Eosinophils (%) (Auto) 1.2 % Basophils (%) (Auto) 1.1 % Neutrophils # (Auto) 5.5 TH/MM3 Lymphocytes # (Auto) 1.5 TH/MM3 Monocytes # (Auto) 0.5 TH/MM3 Eosinophils # (Auto) 0.1 TH/MM3 Basophils # (Auto) 0.1 TH/MM3 CBC Comment DIFF FINAL Differential Comment Blood Urea Nitrogen 20 MG/DL Creatinine 0.78 MG/DL Random Glucose 80 MG/DL Calcium Level 9.2 MG/DL Sodium Level 141 MEQ/L Potassium Level 3.8 MEQ/L Chloride Level 108 MEQ/L Carbon Dioxide Level 24.1 MEQ/L Anion Gap 9 MEQ/L Estimat Glomerular Filtration Rate 73 ML/MIN MDM Medical Record Reviewed: Yes Supervised Visit with JOSE MIGUEL: No Differential Diagnosis Dementia versus agitation versus metabolic derangement. Narrative Course 71-year-old female with history of hyperlipidemia, dementia, who presents from the care home under a [place] act. Apparently the patient was not medicated with her Seroquel. The patient was [place] acted by police after the facility called because they found her wandering about the facility and other peoples rooms. The patient has been calm and cooperative here. We have given her her dose of Seroquel. Labs show a BUN of 20 otherwise everything was within normal limits. She has been tolerating p.o. liquids without difficulty. I have lifted the [place] act and she will be sent back to the facility. Diagnosis Primary Impression: Dementia Additional Impression: Reportedly missed medication Additional Instruction: Please make sure the patient is drinking fluids. Recommend recheck of her BUN and creatinine early this week. Disposition: 03 DISCHARGE TO SNF Condition: Stable Niranjan Mcnair MD Jul 23, 2017 09:42
== END 2017-07-23 10:56 ==
LOC: NEPE 06:18
DX: F03.91 Unspecified dementia, unspecified severity, with behavioral disturbance (principal); Z91.83 Wandering in diseases classified elsewhere
CPT/HCPCS: 80048; 85025; 99283